=== PATIENT | male | born 1940 | race Caucasian/White ===

== ENCOUNTER → 2020-10-13 13:19 | Outpatient (BNVA) | payer MEDICARE, MEDICAID, SELFPAY | PROVIDERS: PCP Hospitalist; Visit Provider Internal Medicine | DX: I48.0 Paroxysmal atrial fibrillation (principal); I10 Essential (primary) hypertension | CPT/HCPCS: 99212 ==

== ENCOUNTER 2020-12-30 14:07 | Inpatient (IN) | payer MEDICARE, MEDICAID, SELFPAY ==
[2020-12-30] VITALS (9 sets, daily range): BP systolic 127–153; BP diastolic 49–69; PULSE 65–88; RESP 16–24; TEMP 36.6–36.9; O2SAT 94–99; BMI 31.6
--- NOTE | ~2020-12-30 | CT_ITS ---
EXAMINATION: CT ABDOMEN AND PELVIS WITHOUT CONTRAST CLINICAL INFORMATION: Anemia COMPARISON: Chest, abdomen, and pelvis noncontrast 08/30/2018. TECHNIQUE: Multidetector volumetric imaging was performed from the superior aspect of the liver through the pubic symphysis. Sagittal and coronal reformatted images were obtained on the technologist's workstation. No oral or intravenous contrast. This CT examination was performed using dose optimization techniques as appropriate, variously including the following: *Automated exposure control *Adjustment of mA and/or kV according to patient size (this includes techniques or standardized protocols for targeted exams where dose is matched to indication/reason for exam; i.e. extremities or head) *Use of iterative reconstruction technique DLP: 681 mGy-cm FINDINGS: LUNG BASES: Dependent atelectasis posterior bases. Stable subpleural nodule right posterior medial base 6 x 5 mm, similar to CT 2018. LIVER, GALLBLADDER, AND BILIARY TREE: Liver is smooth in contour and homogeneous. Liver is within normal size measuring 18 cm in length. No focal parenchymal lesion or intrahepatic ductal dilatation. There are small stones again seen in the gallbladder. No gallbladder dilatation or pericholecystic inflammatory changes. Common duct unremarkable. PANCREAS: Unremarkable. SPLEEN: Unremarkable. 10.4 cm in length. ADRENAL GLANDS: Unremarkable. KIDNEYS AND URETERS: The kidneys are normal in size and show no hydronephrosis, hydroureter, or perinephric stranding. Again, there is a cyst upper pole left kidney water attenuation, 2.7 cm. Again, there are cysts water attenuation right kidney upper pole, lateral 2 x 3 cm and medial 2.3 x 1.9 cm. There are some bilateral renal vascular calcifications. No visible urinary tract calculi. BLADDER/PROSTATE: Mild bladder wall thickening with trabeculation. Huggins catheter tip at junction lateral and upper prostate. Balloon at level of prostatic urethra. Prostatic enlargement. GASTROINTESTINAL TRACT: There is no bowel obstruction or inflammatory changes in the bowel or mesentery. Appendix not seen with certainty. No inflammatory changes around the terminal ileum or cecum. No ascites or fluid collection. ABDOMINAL WALL: Small fat-containing left inguinal hernia. LYMPH NODES: No lymphadenopathy. VASCULAR: Unremarkable. PELVIC VISCERA: No additional findings. See bladder section above OSSEOUS STRUCTURES: No acute bony abnormality. Degenerative changes lumbar spine. Old superior endplate depressions T12 and L2. Results called to Dr. N. Ghias at [address]/CT abdomen pelvis wo con IMPRESSION: 1. Huggins catheter tip at level of upper prostate with Huggins balloon at level mid prostate. Upper tracts unremarkable. No hydronephrosis. 2. Cholelithiasis. No biliary ductal dilatation. 3. Liver and spleen unremarkable on noncontrast exam. No adenopathy or ascites.
--- NOTE | 2020-12-30 15:01 | ED.GENADULT ---
HPI - General Adult General Chief complaint: Weakness Stated complaint: abnormal labs, low h&h Time Seen by Provider: 12/30/20 14:28 Source: patient Mode of arrival: ambulatory Limitations: no limitations History of Present Illness HPI narrative: Patient sent to the ED for low H&H. As per EMS notes patient has been weak. Patient himself denies any complaints and does not know why he was sent to the ER. Related Data Home Medications Medication Instructions Recorded Confirmed amlodipine 2.5 mg tablet 2.5 mg PO DAILY 10/13/20 10/13/20 apixaban 2.5 mg tablet 2.5 mg PO BID 10/13/20 10/13/20 aripiprazole 2 mg tablet 2 mg PO DAILY tab 10/13/20 10/13/20 atenolol 50 mg tablet 50 mg PO BID tab 10/13/20 10/13/20 carbamazepine 300 mg 600 mg PO BID cap 10/13/20 10/13/20 capsule,extended release [id number] dulaglutide 1.5 mg/0.5 mL mg SUBCUT 10/13/20 10/13/20 subcutaneous pen injector fenofibrate nanocrystallized 145 145 mg PO DAILY 10/13/20 10/13/20 mg tablet insulin glargine 100 unit/mL (3 unit SUBCUT 10/13/20 10/13/20 mL) subcutaneous pen levothyroxine 50 mcg tablet 50 mcg PO DAILY 10/13/20 10/13/20 lithium carbonate 450 mg mg PO 10/13/20 10/13/20 tablet,extended release metformin 1,000 mg tablet 1,000 mg PO BID 10/13/20 10/13/20 risperidone 0.25 mg tablet 0.25 mg PO BEDTIME tab 10/13/20 10/13/20 simvastatin 10 mg tablet mg PO 10/13/20 10/13/20 terazosin 2 mg capsule 2 mg PO BEDTIME 10/13/20 10/13/20 Allergies Allergy/AdvReac Type Severity Reaction Status Date / Time No Known Allergies Allergy Verified 10/13/20 13:44 [No Known Allergies*] Review of Systems Review of Systems: Yes all other systems are reviewed and are negative Constitutional: Constitutional: Reports as per HPI and Reports no additional constitutional complaints Eyes: Eyes: Reports as per HPI and Reports no additional eye complaints ENT: Reports system reviewed and no additional complaints, except as documented and Reports as per HPI Cardiovascular: Cardiovascular: Reports as per HPI and Reports no additional cardiovascular complaints Respiratory: Respiratory: Reports as per HPI and Reports no additional respiratory complaints Gastrointestinal: Gastrointestinal: Reports as per HPI and Reports no additional gastrointestinal complaints Genitourinary: Genitourinary: Reports no additional male genitourinary complaints and Reports as per HPI Musculoskeletal: Musculoskeletal: Reports no additional musculoskeletal complaints and Reports as per HPI Neurologic: Reports system reviewed and no additional complaints, except as documented and Reports as per HPI Psychiatric: Psychiatric: Reports no additional psychiatric complaints and Reports as per HPI [facility] Past Medical History Medical History (Updated 12/30/20 @ 20:14 by SERENA Alarcon) Essential hypertension PAF (paroxysmal atrial fibrillation) Surgical History (Updated 10/13/20 @ 13:45 by BHARATH Ramesh) History of permanent cardiac pacemaker placement (~03/2015) Family History Family History (Updated 10/13/20 @ 13:45 by BHARATH Ramesh) Father No problems noted. Mother No problems noted. Social History Social History (Updated 10/13/20 @ 13:45 by BHARATH Ramesh) Smoking Status: Former smoker Advance Directives: No Advance Directives Information Provided: No Physical Exam Vital Signs: Vital Signs: Last Vital Signs Pulse 66 12/30/20 19:26 Resp 22 H 12/30/20 20:02 BP 142/57 H 12/30/20 14:36 Pulse Ox 95 12/30/20 20:02 Body Mass Index 31.6 Const: General: cooperative, healthy appearing, comfortable, no acute distress, well developed, alert, awake and Physically active Orientation/consciousness: patient oriented x3 HENMT: Head: Yes normal to inspection, Yes No palpable skull fracture present, Yes normocephalic and Yes atraumatic Eyes: General: appearance normal, both eyes and all related structures Neck: Neck: Yes normal visual inspection, Yes full ROM, Yes no lymphadenopathy, Yes no meningeal signs, Yes trachea midline, Yes supple and No tender Chest: Chest palpation & inspection: normal inspection of the chest and normal palpation of entire chest wall Resp: Effort & Inspection: normal respiratory effort and able to speak in complete sentences Auscultation: clear to auscultation bilaterally Cardio: Jugular venous distension: no JVD Heart sounds: S1 normal heart sound present and S2 normal heart sound present GI: Other: Rectal exam positive for brown stool. Negative for mac blood or black stool. Inspection: Yes normal to inspection and No abdominal wall ecchymosis Palpation (GI): Soft to palpation, not firm, nontender, no guarding and not rigid : General: Yes CVA tenderness and Yes no CVA tenderness Back/Spine/Pelvis: Back: no CVA tenderness, CVA tenderness and No back tenderness Skin: General skin exam: no rashes or lesions noted and elasticity normal Neuro: General: patient oriented x3, no meningeal signs and CN's II-XI intact bilaterally Cranial nerves: Yes CN's II-XII intact bilaterally Extrem: General: Yes normal to inspection and Yes full ROM Psych: Appearance: grossly normal, well kempt and not disheveled Course Course Course Narrative: Will do repeat labs including H& H. Will EKG and troponin. Stool guaiac sent. Patient started on fluids. Reevaluation(s) Reevaluation #1: Lab results show he is anemic. Went to re-evaluate patient and patient is alert oriented x3 and vital signs are stable. Patient does not make decision for himself. Patient has a guardian Rebel Boone who I contacted twice. I called the cellphone and office number and there was no response. Spoke with supervising attending Dr. Bah who agreed that him and I will do provider sign consent for patient to receive blood. Patient to be admitted with a positive stool strike and on Eliquis. Reevaluation #2: Spoke with Dr. Clark of Gastroenterology and she was informed of patient's history, physical exam, and diagnostics. She recommends patient continue receiving red blood cell and Protonix. She states she will evaluate patient in the morning for possible endoscopy. Medical Decision Making MDM Narrative Medical decision making narrative: Rule out GI bleed Lab Data Result diagrams: 12/30/20 16:39 12/30/20 16:40 Labs: Lab Results 12/30/20 12/30/20 12/30/20 Range/Units 16:39 16:39 16:39 WBC 6.5 (4.8-10.8) X10*3/uL RBC 2.81 L (4.60-5.80) X10*6/uL Hgb 6.1 L* (14.0-18.0) g/dl Hct 22.0 L (42-52) % MCV 78.3 L (80-98) fL MCH 21.7 L (27.0-33.0) pg MCHC 27.7 L (31.0-36.0) g/dl RDW 16.9 H (11.0-16.0) % Plt Count 248 (160-400) X10*3/uL MPV 8.6 L (9.4-12.4) fL Immature Gran % (Auto) 0.5 H (0.0-0.4) % Neut % (Auto) 63.0 (45-73) % Lymph % (Auto) 24.2 (20-40) % [place] % (Auto) 6.4 (2-11) % Eos % (Auto) 5.6 H (0-4) % Baso % (Auto) 0.3 (0-2) % Lymph # (Auto) 1.6 (1.2-4.9) X10*3/uL [place] # (Auto) 0.4 (0.1-1.2) X10*3/uL Eos # (Auto) 0.4 (0.0-0.4) X10*3/uL Baso # (Auto) 0.0 (0.0-0.2) X10*3/uL Abs Immat Gran (auto) 0.03 (0.00-0.03) X10*3/uL Absolute Neuts (auto) 4.1 (2.0-8.3) X10*3/uL Absolute Nucleated RBC 0.000 (0.0-0.012) X10*3/uL Nucleated RBC % (auto) 0.0 (0.0-0.2) /100WBC PT 14.1 H (10.8-13.0) SEC INR 1.2 H (0.9-1.1) APTT 37.3 (24.1-38.0) SEC Sodium (135-145) mmol/L Potassium (3.3-5.1) mmol/L Chloride (96-108) mmol/L Carbon Dioxide (22-29) mmol/L Anion Gap (12-20) BUN (9-16) mg/dL Creatinine (0.5-1.4) mg/dL Estim Creat Clear Calc Estimated GFR Random Glucose (60-115) mg/dL Calcium (8.4-10.2) mg/dL Total Bilirubin (0.0-1.0) mg/dL AST (5-37) U/L ALT (0-40) U/L Alkaline Phosphatase (39-117) U/L Troponin I High Sens 7.8 (<3.5-35.0) ng/L Total Protein (6.5-8.0) g/dL Albumin (3.5-5.0) g/dL Stool Occult Blood (NEGATIVE) Blood Type Antibody Screen Crossmatch 12/30/20 12/30/20 12/30/20 Range/Units 16:39 16:39 16:40 WBC (4.8-10.8) X10*3/uL RBC (4.60-5.80) X10*6/uL Hgb (14.0-18.0) g/dl Hct (42-52) % MCV (80-98) fL MCH (27.0-33.0) pg MCHC (31.0-36.0) g/dl RDW (11.0-16.0) % Plt Count (160-400) X10*3/uL MPV (9.4-12.4) fL Immature Gran % (Auto) (0.0-0.4) % Neut % (Auto) (45-73) % Lymph % (Auto) (20-40) % [place] % (Auto) (2-11) % Eos % (Auto) (0-4) % Baso % (Auto) (0-2) % Lymph # (Auto) (1.2-4.9) X10*3/uL [place] # (Auto) (0.1-1.2) X10*3/uL Eos # (Auto) (0.0-0.4) X10*3/uL Baso # (Auto) (0.0-0.2) X10*3/uL Abs Immat Gran (auto) (0.00-0.03) X10*3/uL Absolute Neuts (auto) (2.0-8.3) X10*3/uL Absolute Nucleated RBC (0.0-0.012) X10*3/uL Nucleated RBC % (auto) (0.0-0.2) /100WBC PT (10.8-13.0) SEC INR (0.9-1.1) APTT (24.1-38.0) SEC Sodium 141 (135-145) mmol/L Potassium 4.6 (3.3-5.1) mmol/L Chloride 114 H (96-108) mmol/L Carbon Dioxide 20 L (22-29) mmol/L Anion Gap 12 (12-20) BUN 24 H (9-16) mg/dL Creatinine 1.39 (0.5-1.4) mg/dL Estim Creat Clear Calc 49.4 Estimated GFR 49 Random Glucose 102 (60-115) mg/dL Calcium 8.6 (8.4-10.2) mg/dL Total Bilirubin 0.2 (0.0-1.0) mg/dL AST 12 (5-37) U/L ALT 11 (0-40) U/L Alkaline Phosphatase 35 L (39-117) U/L Troponin I High Sens (<3.5-35.0) ng/L Total Protein 6.0 L (6.5-8.0) g/dL Albumin 3.6 (3.5-5.0) g/dL Stool Occult Blood POSITIVE (NEGATIVE) Blood Type A Positive Antibody Screen NEGATIVE Crossmatch See Detail ECG Data Interpretation: Atrial paced rhythm with prolonged AV conduction. 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 Ventricular rate 71. IL interval 214. QRS 154. QTC 497. Negative STEMI Critical Care Time Critical Care Time Critical Care Time: Yes Total Critical Care Time: 60 Attestation: Patient is severely anemic. Consent was signed and red packed blood cell was given. Rating Clerk was called. Patient given Protonix. Discharge Plan Discharge Clinical Impression: Acute GI bleeding Patient Disposition: Admitted As Inpatient
--- NOTE | 2020-12-30 15:02 | ECG_ITS ---
Test Reason : WEAKNESS Blood Pressure : / mmHG Vent. Rate : 071 BPM Atrial Rate : 071 BPM P-R Int : 214 ms QRS Dur : 154 ms QT Int : 458 ms P-R-T Axes : 000 -69 061 degrees QTc Int : 497 ms Atrial-paced rhythm with prolonged AV conduction Right bundle branch block Left anterior fascicular block Bifascicular block Septal infarct , age undetermined Abnormal ECG When compared with ECG of 31-AUG-2018 17:51, Septal infarct is now Present Nonspecific T wave abnormality no longer evident in Inferior leads Referred By: Abdiaziz Alberto Electronically Signed By:MACIEJ HERZOG MD
[2020-12-30] MEDS: 0.9 % Sodium Chloride 1,000 ML 999 ML IV (16:40)
[2020-12-30 16:46] LABS: MANUAL DIFF FLAG NO
[2020-12-30 16:48] LABS: Basophils Percent Auto 0.3 % (0-2); Eosinophils Absolute Auto 0.4 X10*3/uL (0.0-0.4); Eosinophils Percent Auto 5.6 % (0-4); Imm Gran Abs Auto 0.03 X10*3/uL (0.00-0.03); Imm Gran Pct Auto 0.5 % (0.0-0.4); Lymphocytes Absolute Auto 1.6 X10*3/uL (1.2-4.9); Lymphocytes Percent Auto 24.2 % (20-40); Mean Corpuscular HGB Conc 27.7 g/dl (31.0-36.0); Mean Corpuscular Hemoglobin 21.7 pg (27.0-33.0); Mean Corpuscular Volume 78.3 fL (80-98); Mean Platelet Volume 8.6 fL (9.4-12.4); Monocytes Absolute Auto 0.4 X10*3/uL (0.1-1.2); Monocytes Percent Auto 6.4 % (2-11); Neutrophils Absolute Auto 4.1 X10*3/uL (2.0-8.3); Platelet Count 248 X10*3/uL (160-400); Red Blood Count 2.81 X10*6/uL (4.60-5.80); Red Cell Distribution Width 16.9 % (11.0-16.0); White Blood Count 6.5 X10*3/uL (4.8-10.8)
[2020-12-30 16:50] LABS: OBS Int Ctl Valid YES; OBS1 POSITIVE (NEGATIVE)
[2020-12-30 16:54] LABS: INTERNATIONAL NORM RATIO 1.2 (0.9-1.1); Prothrombin Time 14.1 SEC (10.8-13.0)
[2020-12-30 16:56] LABS: Partial Thromboplastin Time 37.3 SEC (24.1-38.0)
[2020-12-30 17:01] LABS: Hemoglobin 6.1 g/dl (14.0-18.0)
[2020-12-30 17:13] LABS: Alanine Aminotransferase 11 U/L (0-40); Albumin Level 3.6 g/dL (3.5-5.0); Alkaline Phosphatase 35 U/L (39-117); Anion Gap 12 (12-20); Aspartate Amino Transferase 12 U/L (5-37); Bilirubin Total 0.2 mg/dL (0.0-1.0); Blood Urea Nitrogen 24 mg/dL (9-16); Calcium 8.6 mg/dL (8.4-10.2); Carbon Dioxide 20 mmol/L (22-29); Chloride 114 mmol/L (96-108); Creatinine Clr Calc Pharmacy 49.4; Estimated Glomerular Filt Rate 49; Glucose Random 102 mg/dL (60-115); Potassium 4.6 mmol/L (3.3-5.1); Sodium 141 mmol/L (135-145)
[2020-12-30 17:19] LABS: Troponin-I High Sensitivity 7.8 ng/L (<3.5-35.0)
--- NOTE | 2020-12-30 19:09 | PC.NURSE ---
Report taken from Miguelito, plan for labs, transfusion and admission.
[2020-12-30] MEDS: LORazepam 2 MG/ML VIAL IVPUSH (19:17)
[2020-12-30] MEDS: Pantoprazole Sodium 40 MG/10 ML VIAL 80 MG IVPUSH (19:17)
--- NOTE | 2020-12-30 19:27 | PC.NURSE ---
Pt resting in bed, medicated per NOV. Labs obtained. VSS. Continue to monitor.
--- NOTE | 2020-12-30 19:51 | PC.NURSE ---
Pt incontinent of urine, provided with john paul care and a complete bed change. Pt resting in bed at this time.
--- NOTE | 2020-12-30 20:39 | P.HPHOSP_ITS ---
History of Present Illness Date of Service: 12/30/20 Chief Complaint: Anemia 80-year-old male past medical history of hypertension, hyperlipidemia, diabetes, chronic kidney disease, AFib on Eliquis, hypothyroidism, GERD, history of pacemaker bipolar, dementia, psychiatric disease,Has a guardian presented from the residential chief complaint of abnormal labs-noted to have anemia of 6.2 hemoglobin; Patient is a poor historian. I tried to reach the residential not able to chronic as [facility] I spoke to the patient's guardian Rebel Sol- [phone]. Most of the history obtained from the records and the ER staff. Reportedly patient did not have any chest pain palpitations lightheadedness or dizziness. Denies any active signs of bleeding. For ER team patient rectal exam showed brown stool with guaiac positive. Lab showed hemoglobin of 6.1. Patient's prior hemoglobin was 9.2 in 2 in 18. Patient's current mental status is at his baseline. Patient denies any fever chills cough. Denies any abdominal discomfort. Review of all other systems is negative except mentioned above [facility] Medical History (Updated 01/01/21 @ 15:07 by Suleiman Felton MD) Diabetes Essential hypertension Hypothyroidism PAF (paroxysmal atrial fibrillation) Psychiatric diagnosis Wheezy Family History Father No problems noted. Mother No problems noted. Surgical History History of permanent cardiac pacemaker placement (~03/2015) Social History Household Members: Other Housing: Retirement Do you presently have visiting nurse or other home services: No Unable to assess alcohol history related to: Refusing to respond Smoking Status: Unknown if ever smoked Use of substances other than those prescribed or required for medical reasons: Unknown Currently Displaying Signs/Symptoms of Drug Intoxication Withdrawal: No Advance Directives: No Advance Directives Information Provided: No Do you have thoughts of harming others: None Do you have a plan to hurt others: No Plan Recently lost weight without trying: Unsure service: Yes Current occupational status: disabled Meds Allergies Allergy/AdvReac Type Severity Reaction Status Date / Time No Known Allergies Allergy Verified 10/13/20 13:44 [No Known Allergies*] Active Medications: Current Medications Generic Name Dose Route Start Last Admin Trade Name Yoselin PRN Reason Stop Dose Admin Acetaminophen 650 mg 12/30/20 20:18 Acetaminophen 325 Mg Tablet PO Q6H PRN Pain, Mild (Pain Scale 1-3) Dextrose/Sodium Chloride 1,000 mls @ 50 mls/hr 12/30/20 20:30 D51/2ns IVCONT .Q20H FOR[facility]LY [facility], [facility]–1983 Insulin Human Lispro 0 unit 12/30/20 21:00 Insulin Lispro 100 Unit/Ml 3 Ml Vial SUBCUT QIDACHS FOR[facility]LY [facility], [facility]1983 Protocol Sodium Chloride 3 ml 12/31/20 00:00 0.9 % Sodium Chloride Flush 3 Ml [facility] Medications Medication Instructions Recorded Confirmed Last Taken Type amlodipine 2.5 mg tablet 2.5 mg PO DAILY 10/13/20 12/31/20 12/30/20 09:00 History apixaban 2.5 mg tablet 2.5 mg PO BID 10/13/20 12/31/20 12/30/20 09:00 History aripiprazole 2 mg tablet 1 mg PO DAILY tab 10/13/20 12/31/20 12/30/20 09:00 History atenolol 50 mg tablet 50 mg PO BID tab 10/13/20 12/31/20 12/30/20 09:00 History carbamazepine 300 mg 600 mg PO BID cap 10/13/20 12/31/20 12/30/20 09:00 History capsule,extended release [id number] dulaglutide 1.5 mg/0.5 mL 1.5 mg SUBCUT SA 10/13/20 12/31/20 12/27/20 History subcutaneous pen injector fenofibrate nanocrystallized 145 145 mg PO DAILY 10/13/20 12/31/20 12/30/20 09:00 History mg tablet insulin glargine 100 unit/mL (3 10 unit SUBCUT DAILY@1100 10/13/20 12/31/20 12/30/20 11:00 History mL) subcutaneous pen levothyroxine 50 mcg tablet 50 mcg PO DAILY@0630 10/13/20 12/31/20 12/30/20 09:00 History lithium carbonate 450 mg 450 mg PO BEDTIME 10/13/20 12/31/20 12/30/20 17:00 History tablet,extended release metformin 1,000 mg tablet 1,000 mg PO BID 10/13/20 12/31/20 12/30/20 09:00 History risperidone 0.25 mg tablet 0.125 mg PO BEDTIME tab 10/13/20 12/31/20 12/30/20 09:00 History simvastatin 10 mg tablet 10 mg PO BEDTIME 10/13/20 12/31/20 12/30/20 17:00 History terazosin 2 mg capsule 2 mg PO BEDTIME 10/13/20 12/31/20 12/30/20 17:00 History multivitamin 1 tab PO DAILY 12/31/20 12/31/20 12/30/20 09:00 History polyvinyl alcohol [Artificial 1 drp OPHTHALMIC (EYE) BID 12/31/20 12/31/20 09:00 History Tears (polyvin alc)] Physical Exam Vital Signs and Narrative: Vital Signs: Last Vital Signs Pulse 66 12/30/20 19:26 Resp 22 H 12/30/20 20:02 BP 142/57 H 12/30/20 14:36 Pulse Ox 95 12/30/20 20:02 Body Mass Index 31.6 Gen: Appears be in no acute distress HEENT: NCAT, Moist mucosa. Pulmonary: Vesicular breath sounds, fair air entry CVS: Normal S1-S2 Abdomen: BS+, Soft, Nontender Extremities: Warm well perfused Neuro: Alert and awake. Results Labs CBC and Chem 7: 01/01/21 06:15 01/01/21 06:15 Labs: Laboratory Results - last 24 hr 12/30/20 12/30/20 12/30/20 16:39 16:39 16:39 MCV 78.3 L MCH 21.7 L MCHC 27.7 L RDW 16.9 H Plt Count 248 MPV 8.6 L Immature Gran % (Auto) 0.5 H Neut % (Auto) 63.0 Lymph % (Auto) 24.2 [place] % (Auto) 6.4 Eos % (Auto) 5.6 H Baso % (Auto) 0.3 Lymph # (Auto) 1.6 [place] # (Auto) 0.4 Eos # (Auto) 0.4 Baso # (Auto) 0.0 Abs Immat Gran (auto) 0.03 Absolute Neuts (auto) 4.1 Absolute Nucleated RBC 0.000 Nucleated RBC % (auto) 0.0 PT 14.1 H INR 1.2 H APTT 37.3 Anion Gap Estim Creat Clear Calc Estimated GFR Random Glucose Calcium Total Bilirubin AST ALT Alkaline Phosphatase Troponin I High Sens 7.8 Total Protein Albumin Stool Occult Blood Blood Type Antibody Screen Crossmatch 12/30/20 12/30/20 12/30/20 16:39 16:39 16:40 MCV MCH MCHC RDW Plt Count MPV Immature Gran % (Auto) Neut % (Auto) Lymph % (Auto) [place] % (Auto) Eos % (Auto) Baso % (Auto) Lymph # (Auto) [place] # (Auto) Eos # (Auto) Baso # (Auto) Abs Immat Gran (auto) Absolute Neuts (auto) Absolute Nucleated RBC Nucleated RBC % (auto) PT INR APTT Anion Gap 12 Estim Creat Clear Calc 49.4 Estimated GFR 49 Random Glucose 102 Calcium 8.6 Total Bilirubin 0.2 AST 12 ALT 11 Alkaline Phosphatase 35 L Troponin I High Sens Total Protein 6.0 L Albumin 3.6 Stool Occult Blood POSITIVE Blood Type A Positive Antibody Screen NEGATIVE Crossmatch See Detail Assessment and Plan (1) Acute GI bleeding: Status: Acute 80-year-old male with a past medical history of hypertension, hyperlipidemia, diabetes, chronic kidney disease, atrial fibrillation on Eliquis, history of pacemaker, dementia, psychiatric disease, presented from the residential with chief complaint of anemia. Anemia: Likely in the setting of GI bleed. Guaiac-positive stool. IV ppi b.i.d. Patient being transfused 2 units of PRBC in the ER. Will follow-up blood post transfusion. Gastroenterology was notified NPO IV fluids History of AFib: Patient on Eliquis. Currently rate controlled. Hold Eliquis given GI bleed. A tried to reach the residential to find out the last dose of Eliquis but was going to the [facility] male. Will monitor serial H&H. Hypertension: Will hold home antihypertensives in order to provide room her blood pressure given GI bleed. Monitor vitals. Diabetes: Insulin sliding scale. Hold home oral hypoglycemic agents. Monitor fingerstick glucose. Dementia/psychiatric illness: Continue home medications. Patient's mental status is currently at baseline. Diet: NPO. Speech and swallow eval. DVT prophylaxis: SCD boots Code status: Full code. The documents from the residential states full code. I also spoke to the patient's guardian.
--- NOTE | 2020-12-30 21:15 | PC.NURSE ---
Pt noted to be altered and combative after Ativan. POC 109 mg/dl. Blood transfusion infusing. VSS. Pt moved to room 22, closer to nurses station to be monitor. Continue to monitor.
[2020-12-30 21:17] LABS: Glucose, Whole Blood 109 mg/dL (60-115)
--- NOTE | 2020-12-30 22:30 | PC.NURSE ---
hot cell technician to lab to bead picker RBCs however there was an issue with the patient label and the lab would not issue the RBCs to the tech.
--- NOTE | 2020-12-30 22:43 | PC.NURSE ---
Pt incontinent of urine and a large brown, formed stool. Pt provided with john paul care and a complete bed change. Plan for second unit of blood transfusion.
--- NOTE | 2020-12-30 23:52 | PC.NURSE ---
photo lab technician at bedside to obtain Covid swab.
[2020-12-31] VITALS (8 sets, daily range): BP systolic 100–173; BP diastolic 56–89; PULSE 67–100; RESP 19–26; TEMP 36.1–36.8; O2SAT 90–98
[2020-12-31 00:20] LABS: COVID-19 Test Negative (Negative); IDNOW Serial# 9DD0AD1C
[2020-12-31] MEDS: 0.9 % Sodium Chloride Flush 3 ML SYRINGE IVFLUSH (01:20)
[2020-12-31] MEDS: Dextrose 5 % and 0.45 % NaCl 1,000 ML 50 ML IVCONT ×2 (01:52→16:40)
--- NOTE | 2020-12-31 02:32 | PC.NURSE ---
16F argueta placed, UA obtained and sent.
[2020-12-31 02:42] LABS: Glucose Urine UA NEG (NEG); Leukocyte Esterase Urine 3+ (NEG); Nitrite Urine NEG (NEG); PH 6.5 (5.0-8.0); Specific Gravity - Urine <= 1.005 (1.005-1.025); UACC Culture Trigger YES; Urine Blood 3+ (NEG); Urine Ketones NEG (NEG); Urine Protein NEG (NEG-TRACE)
[2020-12-31 02:43] LABS: Appearance Urine HAZY; Color Urine STRAW
[2020-12-31 02:49] LABS: RBC Urine 50-75 /HPF (0)
[2020-12-31 02:50] LABS: Bacteria Urine 2+ /LPF; WBC Clumps Urine NOTED
--- NOTE | 2020-12-31 04:36 | PC.NURSE ---
Pt provided with john paul care and a complete bed change. Pt resting in bed in NAD.
[2020-12-31] MEDS: Pantoprazole Sodium 40 MG/10 ML VIAL IVPUSH ×2 (05:58→16:40)
--- NOTE | 2020-12-31 06:03 | PC.NURSE ---
750 ml of red tinged urine emptied from argueta bag. -bleeding noted at insertion site however pt continuously pulling on argueta. Argueta secure repositioned twice. Pt medicated per MAR, VSS, pt continues to remove telemetry leads. Pt resting comfortably in bed in NAD. Continue to monitor.
[2020-12-31 07:16] LABS: MANUAL DIFF FLAG NO
[2020-12-31 07:24] LABS: Basophils Absolute Auto 0.1 X10*3/uL (0.0-0.2); Basophils Percent Auto 0.5 % (0-2); Eosinophils Absolute Auto 0.4 X10*3/uL (0.0-0.4); Eosinophils Percent Auto 3.9 % (0-4); Hematocrit 28.1 % (42-52); Hemoglobin 8.1 g/dl (14.0-18.0); Imm Gran Abs Auto 0.06 X10*3/uL (0.00-0.03); Imm Gran Pct Auto 0.7 % (0.0-0.4); Lymphocytes Absolute Auto 1.5 X10*3/uL (1.2-4.9); Lymphocytes Percent Auto 16.7 % (20-40); Mean Corpuscular HGB Conc 28.8 g/dl (31.0-36.0); Mean Corpuscular Hemoglobin 22.9 pg (27.0-33.0); Mean Corpuscular Volume 79.4 fL (80-98); Mean Platelet Volume 9.2 fL (9.4-12.4); Monocytes Absolute Auto 0.6 X10*3/uL (0.1-1.2); Neutrophils Absolute Auto 6.5 X10*3/uL (2.0-8.3); Neutrophils Percent Auto 71.2 % (45-73); Platelet Count 279 X10*3/uL (160-400); Red Blood Count 3.54 X10*6/uL (4.60-5.80); Red Cell Distribution Width 16.2 % (11.0-16.0); White Blood Count 9.2 X10*3/uL (4.8-10.8)
[2020-12-31 07:49] LABS: Anion Gap 11 (12-20); Blood Urea Nitrogen 19 mg/dL (9-16); Calcium 8.4 mg/dL (8.4-10.2); Carbon Dioxide 18 mmol/L (22-29); Chloride 119 mmol/L (96-108); Creatinine Clr Calc Pharmacy 54.5; Estimated Glomerular Filt Rate 55; Glucose Random 100 mg/dL (60-115); Potassium 4.6 mmol/L (3.3-5.1); Sodium 143 mmol/L (135-145)
[2020-12-31 08:12] LABS: Glucose, Whole Blood 99 mg/dL (60-115)
[2020-12-31 08:14] LABS: HBc Num1 0.11 S/CO (0.00-0.79); HIV AB/AG Nonreactive (Nonreactive); HIV Num 1 0.07 S/CO (0.00-0.99); Hepatitis B Core Antibody Nonreactive (Nonreactive); ~Hepatitis B Surface Antibody NONREACTIVE (Nonreactive)
[2020-12-31 08:35] LABS: HBsAGNum1 0.19 S/CO (0.00-0.99); Hepatitis B Surface Antigen Negative (Negative); ~HepC Num1 0.06 S/CO (0.00-0.79); ~Hepatitis C Antibody Nonreactive (Nonreactive)
--- NOTE | 2020-12-31 08:46 | P.CNGI_ITS ---
History of Present Illness Data of Consult Service Date: 12/31/20 Requesting physician: Argelia Guzman Primary Care Provider: Sterling Be DO HPI Reason for consult: anemia 80-year-old male past medical history of hypertension, hyperlipidemia, diabetes, chronic kidney disease, AFib on Eliquis, hypothyroidism, GERD, history of pacemaker bipolar, dementia, psychiatric disease, who I am seeing for assessment of anemia. No hx from patient, has severe dementia. Per notes he had labs checked at [facility] and Hgb was around 6 g/dl, confirmed on another sample in the ED here. Apparently no signs of active blood loss, and rectal exam in ED with brown stool that was FOB pos. I spoke to RN and she had no further observations to make. He did received 2 units of blood and hbg appropriately incremented. Review of Systems Review of Systems: Yes Unobtainable due to mental status PMFSH Past Medical History Medical History (Updated 12/30/20 @ 20:14 by SERENA Alarcon) Essential hypertension PAF (paroxysmal atrial fibrillation) Family History Family History (Updated 10/13/20 @ 13:45 by BHARATH Ramesh) Father No problems noted. Mother No problems noted. Surgical History Surgical History (Updated 10/13/20 @ 13:45 by BHARATH Ramesh) History of permanent cardiac pacemaker placement (~03/2015) Social History Social History (Updated 10/13/20 @ 13:45 by BHARATH Ramesh) Household Members: Other Housing: Long-Term Do you presently have visiting nurse or other home services: No Unable to assess alcohol history related to: Refusing to respond Smoking Status: Unknown if ever smoked Use of substances other than those prescribed or required for medical reasons: Refusing to respond Currently Displaying Signs/Symptoms of Drug Intoxication Withdrawal: No Advance Directives: No Advance Directives Information Provided: No Do you have thoughts of harming others: None Do you have a plan to hurt others: No Plan Recently lost weight without trying: Unsure service: Yes Current occupational status: disabled Meds Allergies Allergy/AdvReac Type Severity Reaction Status Date / Time No Known Allergies Allergy Verified 10/13/20 13:44 [No Known Allergies*] Active Medications: Current Medications Generic Name Dose Route Start Last Admin Trade Name Freq PRN Reason Stop Dose Admin Acetaminophen 650 mg 12/30/20 20:18 Acetaminophen 325 Mg Tablet PO Q6H PRN Pain, Mild (Pain Scale 1-3) Dextrose/Sodium Chloride 1,000 mls @ 50 mls/hr 12/30/20 20:30 12/31/20 01:52 D51/2ns IVCONT 50 mls/hr .Q20H [facility] Administration Insulin Human Lispro 0 unit 12/30/20 21:00 12/31/20 08:04 Insulin Lispro 100 Unit/Ml 3 Ml Vial SUBCUT Not Given QIDACHS [facility] Protocol Pantoprazole Sodium 40 mg 12/31/20 06:30 12/31/20 05:58 Pantoprazole Sodium 40 Mg/10 Ml Vial IVPUSH 40 mg BID@0630,1630 [facility] Administration Pharmacy Consult 1 each 12/31/20 06:47 Consult Rx Perform Med Rec MISCELLANE ONCE PRN Consult order Sodium Chloride 3 ml 12/31/20 00:00 12/31/20 08:05 0.9 % Sodium Chloride Flush 3 Ml Syringe IVFLUSH Not Given QSHIFT [facility] Home Medications Medication Instructions Recorded Confirmed Last Taken Type amlodipine 2.5 mg tablet 2.5 mg PO DAILY 10/13/20 12/31/20 12/30/20 09:00 History apixaban 2.5 mg tablet 2.5 mg PO BID 10/13/20 12/31/20 12/30/20 09:00 History aripiprazole 2 mg tablet 1 mg PO DAILY tab 10/13/20 12/31/20 12/30/20 09:00 History atenolol 50 mg tablet 50 mg PO BID tab 10/13/20 12/31/20 12/30/20 09:00 History carbamazepine 300 mg 600 mg PO BID cap 10/13/20 12/31/20 12/30/20 09:00 History capsule,extended release [id number] dulaglutide 1.5 mg/0.5 mL 1.5 mg SUBCUT SA 10/13/20 12/31/20 12/27/20 History subcutaneous pen injector fenofibrate nanocrystallized 145 145 mg PO DAILY 10/13/20 12/31/20 12/30/20 09:00 History mg tablet insulin glargine 100 unit/mL (3 10 unit SUBCUT DAILY@1100 10/13/20 12/31/20 12/30/20 11:00 History mL) subcutaneous pen levothyroxine 50 mcg tablet 50 mcg PO DAILY@0630 10/13/20 12/31/20 12/30/20 09:00 History lithium carbonate 450 mg 450 mg PO BEDTIME 10/13/20 12/31/20 12/30/20 17:00 History tablet,extended release metformin 1,000 mg tablet 1,000 mg PO BID 10/13/20 12/31/20 12/30/20 09:00 History risperidone 0.25 mg tablet 0.125 mg PO BEDTIME tab 10/13/20 12/31/20 12/30/20 09:00 History simvastatin 10 mg tablet 10 mg PO BEDTIME 10/13/20 12/31/20 12/30/20 17:00 History terazosin 2 mg capsule 2 mg PO BEDTIME 10/13/20 12/31/20 12/30/20 17:00 History multivitamin 1 tab PO DAILY 12/31/20 12/31/20 12/30/20 09:00 History polyvinyl alcohol [Artificial 1 drp OPHTHALMIC (EYE) BID 12/31/20 12/31/20 09:00 History Tears (polyvin alc)] Physical Exam Vital Signs: Vital Signs: Last Vital Signs Temp 98.2 F 12/31/20 08:00 Pulse 87 12/31/20 08:00 Resp 24 H 12/31/20 08:00 BP 116/73 12/31/20 08:00 Pulse Ox 98 12/31/20 08:00 Body Mass Index 31.6 Const: Other: Constitutional : Alert with stimulation, not interested in reply to my questions Neck : Normal inspection, Supple Cardiovascular : RRR, no lower extremity edema Respiratory : Good bilateral air entry, no crackles Gastrointestinal: soft, lax, Normal bowel sounds, Non tender Skin : Warm/Dry, No rash Neurological : Alert & seems disoriented, No focal deficit General: comforta ble, no acute distress and awake HENMT: Head: Yes normal to inspection, Yes No palpable skull fracture present, Yes normocephalic and Yes atraumatic Eyes: General: appearance normal, both eyes and all related structures Neck: Neck: Yes normal visual inspection, Yes full ROM, Yes no lymphadenopathy, Yes no meningeal signs, Yes trachea midline, Yes supple and No tender Chest: Chest palpation & inspection: normal inspection of the chest and normal palpation of entire chest wall Resp: Effort & Inspection: normal respiratory effort Auscultation: clear to auscultation bilaterally Cardio: Jugular venous distension: no JVD Heart sounds: S1 normal heart sound present and S2 normal heart sound present GI: Inspection: Yes normal to inspection and No abdominal wall ecchymosis Palpation (GI): Soft to palpation, not firm, nontender, no guarding and not rigid : General: Yes CVA tenderness and Yes no CVA tenderness Back/Spine/Pelvis: Back: no CVA tenderness, CVA tenderness and No back tenderness Skin: General skin exam: no rashes or lesions noted and elasticity normal Neuro: General: no meningeal signs and CN's II-XI intact bilaterally Cranial nerves: Yes CN's II-XII intact bilaterally Extrem: General: Yes normal to inspection Results Labs CBC & Chem 7: 12/31/20 06:29 12/31/20 06:29 Labs: Short CBC 12/30/20 12/31/20 Range/Units 16:39 06:29 WBC 6.5 9.2 (4.8-10.8) X10*3/uL Hgb 6.1 L* 8.1 L D (14.0-18.0) g/dl Hct 22.0 L 28.1 L D (42-52) % Plt Count 248 279 (160-400) X10*3/uL BMP 12/30/20 12/31/20 16:40 06:29 Sodium 141 143 Potassium 4.6 4.6 Chloride 114 H 119 H Carbon Dioxide 20 L 18 L BUN 24 H 19 H Creatinine 1.39 1.26 Calcium 8.6 8.4 Liver Function 12/30/20 Range/Units 16:40 Total Bilirubin 0.2 (0.0-1.0) mg/dL AST 12 (5-37) U/L ALT 11 (0-40) U/L Alkaline Phosphatase 35 L (39-117) U/L Albumin 3.6 (3.5-5.0) g/dL Urine 12/31/20 Range/Units 02:32 Urine Color STRAW Urine Appearance HAZY Urine pH 6.5 (5.0-8.0) Ur Specific [place] <= 1.005 (1.005-1.025) Urine Protein NEG (NEG-TRACE) MG/DL Urine Glucose (UA) NEG (NEG) MG/DL Assessment and Plan (1) Acute GI bleeding: Status: Acute 1/ Possible obscure occult GI bleeding whilst on NOAC, wide differential incl mucosal blood loss, AVM, neoplasia, ulcer, gastritis PLAN: 1/ can allow clears 2/ pantoprazole 40 mg IV BID 3/ I spoke to the patient's guardian Rebel Sweta- [phone] and he would prefer to find out what is going on albeit he admits if cancer was found he would not put him thru surgery or other treatment. Recommend placing NGT for bowel prep, can also give enemas, and will plan for EGD with colonoscopy or sigmoidoscopy (at least) for tomorrow.
--- NOTE | 2020-12-31 10:07 | MHC.CM.PN ---
IMM 12/31/20, EMR REVIEWED, PT ADMITTED W/ANEMIA, +OCCULT STOOL, AND WBC'S AND RBC'S IN URINE, PT RECEIVED 2 UNITS OF PRBC IN ED, CM ATTEMPTED TO MEET WITH PT WHO WS SLEEPING SOUNDLY, CM RECEIVED CALL FROM AT [facility] AT 9:58AM AND THEN SPOKE W/ROBERT PT'S SW, PER SW PT'S BASELINE IS 1 ASSIST W/TRANSFERS, USES A WC AND SELF PROPELS HIMSELF AROUND, EATS INDEPENDENTLY AND LOVES FOOD, DIET IS LOW CONCENTRATED SUGAR, INCONT OF BOWEL AND BLADDER. 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 PT WILL WAVE A FIST IN THE AIR HOWEVER IS EASY TO DISTRACT AND THEN FORGETS WHAT HE WAS DOING. DISCHARGE PLAN: RETURN TO [facility], [facility] FOR BLS TRANSPORT PCP: DR. HUFF
--- NOTE | 2020-12-31 10:44 | P.CDIC_ITS ---
CDI Concurrent Query Service Date: 12/31/20 Documentation Clarification: Please clarify if you are treating a proba ble/suspected/likely or confirmed: Acute Blood Loss Anemia due to GI Bleed Adverse effect of anticoagulant Hemorrhagic Disorder due to extrinsic circulating anti-coagulant Provider Response: Other Other Diagnosis: Acute Blood Loss Anemia due to GI Bleed PLEASE DO NOT DELETE/MODIFY EXISTING CONTENT Additional information is needed in order to code to the highest accuracy and appropriate Severity of Illness (SOI). Please clarify the information noted below in your progress notes and discharge summary. Risk Factors/Clinical Indicators/Treatments 80 year old male admitted with weakness, low H/H 6.1/22.0 Stool occult blood positive GI: recommend transfusion and Protonix Possible endoscopy Patient was on Elaquis CDS: Geneva Carolina RN Contact Number: [phone] Please Review the information above and exercise your independent professional judgment in responding to the query. If you concur, pleas document in the PROGRESS NOTES and DISCHARGE SUMMARY. If you do not agree with the query, pleas e document in the query above. THIS QUERY IS PART OF THE PERMANENT MEDICAL RECORD
--- NOTE | 2020-12-31 11:09 | P.PNIM_ITS ---
Subjective Subjective Date of Service: 12/31/20 Interval History: the patient was seen and evaluated this morning Laying in bed, very aggravated about being woken up Denies any fever, chills or pain Reported combative behavior overnight and trying to hit the nurses No reported other overnight events. Systemic review: No fever, chills No chest pain, palpitation No shortness of breath or coughing No abdominal pain, nausea or vomiting Not much interested in talking to me a Physical Exam Vital Signs: Vital Signs: Last Vital Signs Temp 98.2 F 12/31/20 08:00 Pulse 87 12/31/20 08:00 Resp 24 H 12/31/20 08:00 BP 116/73 12/31/20 08:00 Pulse Ox 98 12/31/20 08:00 Body Mass Index 31.6 Const: Other: Constitutional : Alert with stimulation, not interested in reply to my questions Neck : Normal inspection, Supple Cardiovascular : RRR, no lower extremity edema Respiratory : Good bilateral air entry, no crackles Gastrointestinal: soft, lax, Normal bowel sounds, Non tender Skin : Warm/Dry, No rash Neurological : Alert & seems disoriented, No focal deficit Objective Data Current Medications Generic Name Dose Route Start Last Admin Trade Name Freq PRN Reason Stop Dose Admin Acetaminophen 650 mg 12/30/20 20:18 Acetaminophen 325 Mg Tablet PO Q6H PRN Pain, Mild (Pain Scale 1-3) Dextrose/Sodium Chloride 1,000 mls @ 50 mls/hr 12/30/20 20:30 12/31/20 01:52 D51/2ns IVCONT 50 mls/hr .Q20H [facility] Administration Insulin Human Lispro 0 unit 12/30/20 21:00 12/31/20 08:04 Insulin Lispro 100 Unit/Ml 3 Ml Vial SUBCUT Not Given QIDACHS [facility] Protocol Pantoprazole Sodium 40 mg 12/31/20 06:30 12/31/20 05:58 Pantoprazole Sodium 40 Mg/10 Ml Vial IVPUSH 40 mg BID@0630,1630 [facility] Administration Pharmacy Consult 1 each 12/31/20 06:47 Consult Rx Perform Med Rec MISCELLANE ONCE PRN Consult order Sodium Chloride 3 ml 12/31/20 00:00 12/31/20 08:05 0.9 % Sodium Chloride Flush 3 Ml Syringe IVFLUSH Not Given QSHIFT [facility] Labs CBC & Chem 7: 04/28/21 06:29 12/31/20 06:29 Assessment and Plan (1) Acute GI bleeding: Status: Acute Assessment and Plan: 80-year-old male with a past medical history of hypertension, hyperlipidemia, diabetes, chronic kidney disease, atrial fibrillation on Eliquis, history of pacemaker, dementia, psychiatric disease, presented from the senior care with chief complaint of anemia. Acute on chronic blood-loss anemia Secondary to likely chronic GI bleed History of anticoagulation usage which likely contributing Hemoglobin improved to 8 after 2 units transfusion Guaiac-positive stool. Continue IV ppi b.i.d. Gastroenterology input appreciated, to discuss goals of care with healthcare proxy and decide the best next step if to do upper and lower endoscopy or just to discontinue anticoagulation and monitor Hold Eliquis for now and consider DC before discharge if no intervention planned Keep NPO for now, Advanced diet later Continue IV fluids Behavioral problem Patient combative and aggressive with with staff Try recurrent reorientation Avoid medications that might worsen his mentation, if needed very small dose of Haldol History of AFib Hold Eliquis given GI bleed Start atenolol home does Will monitor serial H&H. Hypertension Will hold home antihypertensives in order to provide room her blood pressure given GI bleed Monitor vitals. Diabetes Insulin sliding scale Hold home oral hypoglycemic agents Monitor fingerstick glucose. Dementia/psychiatric illness To Continue home medications Patient's mental status is currently at baseline. Question seizure disorder Start carbamazepine Diet NPO Speech and swallow eval. DVT prophylaxis: SCD boots the
--- NOTE | 2020-12-31 11:52 | MHC.SLORD ---
Speech Language Pathology Order Status: Order received for bedside swallow evaluation. Pt refused to participate. 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 Per documentation from Angelique in [place], pt is on unmodified diet at baseline. [employer] PRODUCT [employer]ER will re-attempt evaluation tomorrow morning.
--- NOTE | 2020-12-31 11:59 | PC.NURSE ---
Pt refused swallow eval by speech. Also refused lunch POC, vs and sequentials. Dr Guzman notified
[2020-12-31] MEDS: carBAMazepine ER 200 MG TAB.ER.12H 600 MG PO ×2 (12:54→20:56)
[2020-12-31 16:13] LABS: Glucose, Whole Blood 132 mg/dL (60-115)
--- NOTE | 2020-12-31 17:18 | PC.NURSE ---
Pt allowed staff to reposition in bed before dinner. Also allowed staff to put a satnam top on him. Huggins remains draining clear yellow urine. Pt feeding self without difficulty. Cooperative at this time
[2020-12-31 20:19] LABS: Glucose, Whole Blood 97 mg/dL (60-115)
[2020-12-31] MEDS: risperiDONE 0.25 MG TABLET 0.125 MG PO (20:52)
[2020-12-31] MEDS: Lithium Carbonate ER 450 MG TABLET.ER PO (20:56)
[2020-12-31] MEDS: PEG 3350/Na Sulf,Bicarb,Cl/KCL 4,000 ML SOLN.RECON 240 ML NG-TUBE ×2 (21:01)
--- NOTE | 2020-12-31 23:56 | PC.NURSE ---
Pt was unable to tolerate Gavilyte bowel prep and refused to drink it. pt also refused the PRN fleet enemas, despite me telling him the importance of the bowel prep prior to his endoscopy/colonoscopy
[2021-01-01] VITALS (12 sets, daily range): BP systolic 116–152; BP diastolic 34–91; PULSE 60–159; RESP 12–24; TEMP 35.7–37.6; O2SAT 94–100
[2021-01-01] MEDS: Levothyroxine Sodium 50 MCG TABLET PO (06:48)
[2021-01-01] MEDS: Pantoprazole Sodium 40 MG/10 ML VIAL IVPUSH (06:51)
[2021-01-01 06:54] LABS: Hematocrit 26.9 % (42-52); Mean Corpuscular HGB Conc 29.7 g/dl (31.0-36.0); Mean Corpuscular Hemoglobin 23.3 pg (27.0-33.0); Mean Corpuscular Volume 78.4 fL (80-98); Mean Platelet Volume 8.9 fL (9.4-12.4); Platelet Count 266 X10*3/uL (160-400); Red Blood Count 3.43 X10*6/uL (4.60-5.80); Red Cell Distribution Width 16.9 % (11.0-16.0); White Blood Count 10.7 X10*3/uL (4.8-10.8)
[2021-01-01 07:28] LABS: Anion Gap 10 (12-20); Blood Urea Nitrogen 18 mg/dL (9-16); Calcium 8.3 mg/dL (8.4-10.2); Carbon Dioxide 19 mmol/L (22-29); Chloride 118 mmol/L (96-108); Creatinine Clr Calc Pharmacy 46.7; Estimated Glomerular Filt Rate 46; Glucose Random 107 mg/dL (60-115); Potassium 4.1 mmol/L (3.3-5.1); Sodium 143 mmol/L (135-145)
[2021-01-01 07:46] LABS: Glucose, Whole Blood 104 mg/dL (60-115)
[2021-01-01] MEDS: atenoloL 50 MG TABLET PO ×2 (08:33→21:07)
[2021-01-01] MEDS: ARIPiprazole 2 MG TABLET 1 MG PO (08:33)
[2021-01-01] MEDS: carBAMazepine ER 200 MG TAB.ER.12H 600 MG PO ×2 (08:34→21:08)
[2021-01-01] MEDS: Artificial Tears 15 ML DROPS 1 DROP EYE-BOTH ×2 (08:41→21:12)
--- NOTE | 2021-01-01 10:28 | MHC.SLORD ---
Speech Language Pathology Order Status: SIMONIZER attempted to see patient for dysphagia evaluation. RN notified SIMONIZER that patient is NPO for endoscopy today. Will continue to follow.
--- NOTE | 2021-01-01 11:04 | MHC.CM.PN ---
PER MULTIDISCIPLINARY ROUNDS PT REFUSING ENEMA, WILL HAVE COLONOSCOPY AND UPPER ENDOSCOPY LATER TODAY IF COMPLIANT. NO PLAN FOR D/C TODAY.
[2021-01-01 11:25] LABS: Glucose, Whole Blood 100 mg/dL (60-115)
--- NOTE | 2021-01-01 12:49 | P.CONAN_ITS ---
HPI - Anesthesia Eval Consult details Narrative: 80 yo male patient with h/o dementia for EGD, Colonoscopy PMF Active Problems Active Problems: All Active Problems (Updated 12/30/20 @ 20:14 by SERENA Alarcon) Acute GI bleeding (Acute) Essential hypertension (Acute) PAF (paroxysmal atrial fibrillation) (Acute) Past Medical History Medical History (Updated 01/01/21 @ 14:26 by Terri Guillen) Diabetes Essential hypertension Hypothyroidism PAF (paroxysmal atrial fibrillation) Psychiatric diagnosis Wheezy Family History Family History Father No problems noted. Mother No problems noted. Family history of problems with anesthesia: No Surgical History Surgical History History of permanent cardiac pacemaker placement (~03/2015) History of Problems with Anesthesia: No Social History Social History Household Members: Other Housing: [facility] Do you presently have visiting nurse or other home services: No Unable to assess alcohol history related to: Refusing to respond Smoking Status: Unknown if ever smoked Use of substances other than those prescribed or required for medical reasons: Unknown Currently Displaying Signs/Symptoms of Drug Intoxication Withdrawal: No Advance Directives: No Advance Directives Information Provided: No Do you have thoughts of harming others: None Do you have a plan to hurt others: No Plan Recently lost weight without trying: Unsure service: Yes Current occupational status: disabled Meds Allergies Allergy/AdvReac Type Severity Reaction Status Date / Time No Known Allergies Allergy Verified 10/13/20 13:44 [No Known Allergies*] Active Medications: Current Medications Generic Name Dose Route Start Last Admin Trade Name Freq PRN Reason Stop Dose Admin Acetaminophen 650 mg 12/30/20 20:18 Acetaminophen 325 Mg Tablet PO Q6H PRN Pain, Mild (Pain Scale 1-3) Aripiprazole 1 mg 01/01/21 09:00 01/01/21 08:33 Aripiprazole 2 Mg Tablet PO 1 mg DAILY LISA Administration Artificial Tears 1 drop 12/31/20 21:00 01/01/21 08:41 Artificial Tears 15 Ml Drops EYE-BOTH 1 drop BID LISA Administration Atenolol 50 mg 12/31/20 21:00 01/01/21 08:33 Atenolol 50 Mg Tablet PO 50 mg BID LISA Administration Protocol Carbamazepine 600 mg 12/31/20 11:30 01/01/21 08:34 Carbamazepine Er 200 Mg Tab.Er.12h PO 600 mg BID LISA Administration Dextrose/Sodium Chloride 1,000 mls @ 50 mls/hr 12/30/20 20:30 12/31/20 16:40 D51/2ns IVCONT 50 mls/hr .Q20H LISA Administration Insulin Human Lispro 0 unit 12/30/20 21:00 01/01/21 11:46 Insulin Lispro 100 Unit/Ml 3 Ml Vial SUBCUT Not Given QIDACHS [facility] Protocol Levothyroxine Sodium 50 mcg 01/01/21 06:30 01/01/21 06:48 Levothyroxine Sodium 50 Mcg Tablet PO 50 mcg DAILY@0630 LISA Administration [place] Carbonate 450 mg 12/31/20 21:00 12/31/20 20:56 [place] Carbonate Er 450 Mg Tablet.Er PO 450 mg BEDTIME LISA Administration Pantoprazole Sodium 40 mg 12/31/20 06:30 01/01/21 06:51 Pantoprazole Sodium 40 Mg/10 Ml Vial IVPUSH 40 mg BID@0630,1630 [facility] Administration Pharmacy Consult 1 each 12/31/20 06:47 Consult Rx Perform Med Rec MISCELLANE ONCE PRN Consult order Risperidone 0.125 mg 12/31/20 21:00 12/31/20 20:52 Risperidone 0.25 Mg Tablet PO 0.125 mg BEDTIME LISA Administration Sodium Biphosphate/Sodium Phosphate 133 ml 12/31/20 21:30 Sodium Phosphate,[place]-Dibasic 133 Ml Enema [place] PREOP PRN Consult order Sodium Chloride 3 ml 12/31/20 00:00 01/01/21 08:33 0.9 % Sodium Chloride Flush 3 Ml Syringe IVFLUSH Not Given QSHIFT [facility] Home Medications Medication Instructions Recorded Confirmed Last Taken Type amlodipine 2.5 mg tablet 2.5 mg PO DAILY 10/13/20 12/31/20 12/30/20 09:00 History apixaban 2.5 mg tablet 2.5 mg PO BID 10/13/20 12/31/20 12/30/20 09:00 History aripiprazole 2 mg tablet 1 mg PO DAILY tab 10/13/20 12/31/20 12/30/20 09:00 History atenolol 50 mg tablet 50 mg PO BID tab 10/13/20 12/31/20 12/30/20 09:00 History carbamazepine 300 mg 600 mg PO BID cap 10/13/20 12/31/20 12/30/20 09:00 History capsule,extended release [id number] dulaglutide 1.5 mg/0.5 mL 1.5 mg SUBCUT SA 10/13/20 12/31/20 12/27/20 History subcutaneous pen injector fenofibrate nanocrystallized 145 145 mg PO DAILY 10/13/20 12/31/20 12/30/20 09:00 History mg tablet insulin glargine 100 unit/mL (3 10 unit SUBCUT DAILY@1100 10/13/20 12/31/20 12/30/20 11:00 History mL) subcutaneous pen levothyroxine 50 mcg tablet 50 mcg PO DAILY@0630 10/13/20 12/31/20 12/30/20 09:00 History lithium carbonate 450 mg 450 mg PO BEDTIME 10/13/20 12/31/20 12/30/20 17:00 History tablet,extended release metformin 1,000 mg tablet 1,000 mg PO BID 10/13/20 12/31/20 12/30/20 09:00 History risperidone 0.25 mg tablet 0.125 mg PO BEDTIME tab 10/13/20 12/31/20 12/30/20 09:00 History simvastatin 10 mg tablet 10 mg PO BEDTIME 10/13/20 12/31/20 12/30/20 17:00 History terazosin 2 mg capsule 2 mg PO BEDTIME 10/13/20 12/31/20 12/30/20 17:00 History multivitamin 1 tab PO DAILY 12/31/20 12/31/20 12/30/20 09:00 History polyvinyl alcohol [Artificial 1 drp OPHTHALMIC (EYE) BID 12/31/20 12/31/20 12/30/20 09:00 History Tears (polyvin alc)] Exam Exam Date and Time: January 01, 2021 1249 Height,Weight and Vital Signs: Height 5 ft 10 in Weight 100.1 kg Last Vital Signs Temp 96.8 F 01/01/21 11:26 Pulse 74 01/01/21 11:26 Resp 18 01/01/21 11:26 BP 131/55 L 01/01/21 11:26 Pulse Ox 96 01/01/21 11:26 Pertinent Lab Results Pertinent Lab Results: Laboratory Tests 12/30/20 12/30/20 12/30/20 16:39 16:39 16:39 WBC 6.5 RBC 2.81 L Hgb 6.1 L* Hct 22.0 L MCV 78.3 L MCH 21.7 L MCHC 27.7 L RDW 16.9 H Plt Count 248 MPV 8.6 L Immature Gran % (Auto) 0.5 H Neut % (Auto) 63.0 Lymph % (Auto) 24.2 [place] % (Auto) 6.4 Eos % (Auto) 5.6 H Baso % (Auto) 0.3 Lymph # (Auto) 1.6 [place] # (Auto) 0.4 Eos # (Auto) 0.4 Baso # (Auto) 0.0 Abs Immat Gran (auto) 0.03 Absolute Neuts (auto) 4.1 Absolute Nucleated RBC 0.000 Nucleated RBC % (auto) 0.0 PT 14.1 H INR 1.2 H APTT 37.3 Sodium Potassium Chloride Carbon Dioxide Anion Gap BUN Creatinine Estim Creat Clear Calc Estimated GFR POC Glucose Random Glucose Calcium Total Bilirubin AST ALT Alkaline Phosphatase Troponin I High Sens 7.8 Total Protein Albumin Urine Color Urine Appearance Urine pH Ur Specific [place] Urine Protein Urine Glucose (UA) Urine Ketones Urine Blood Urine Nitrite Ur Leukocyte Esterase Urine RBC Urine WBC Urine WBC Clumps Ur Squamous Epith Cells Urine Bacteria Stool Occult Blood COVID-19 ([facility]) COVID-19 Clin Com Hep Bs Antigen Hep Bs Antibody Hep B Core Total Ab Hepatitis C Ab (EIA) HIV 1&2 Ab/P24 Ag 4thGn Blood Type Antibody Screen Crossmatch 12/30/20 12/30/20 12/30/20 16:39 16:39 16:40 WBC RBC Hgb Hct MCV MCH MCHC RDW Plt Count MPV Immature Gran % (Auto) Neut % (Auto) Lymph % (Auto) [place] % (Auto) Eos % (Auto) Baso % (Auto) Lymph # (Auto) [place] # (Auto) Eos # (Auto) Baso # (Auto) Abs Immat Gran (auto) Absolute Neuts (auto) Absolute Nucleated RBC Nucleated RBC % (auto) PT INR APTT Sodium 141 Potassium 4.6 Chloride 114 H Carbon Dioxide 20 L Anion Gap 12 BUN 24 H Creatinine 1.39 Estim Creat Clear Calc 49.4 Estimated GFR 49 POC Glucose Random Glucose 102 Calcium 8.6 Total Bilirubin 0.2 AST 12 ALT 11 Alkaline Phosphatase 35 L Troponin I High Sens Total Protein 6.0 L Albumin 3.6 Urine Color Urine Appearance Urine pH Ur Specific [place] Urine Protein Urine Glucose (UA) Urine Ketones Urine Blood Urine Nitrite Ur Leukocyte Esterase Urine RBC Urine WBC Urine WBC Clumps Ur Squamous Epith Cells Urine Bacteria Stool Occult Blood POSITIVE COVID-19 ([facility]) COVID-19 Clin Com Hep Bs Antigen Hep Bs Antibody Hep B Core Total Ab Hepatitis C Ab (EIA) HIV 1&2 Ab/P24 Ag 4thGn Blood Type A Positive Antibody Screen NEGATIVE Crossmatch See Detail 12/30/20 12/30/20 12/30/20 19:24 21:14 23:54 WBC RBC Hgb Hct MCV MCH MCHC RDW Plt Count MPV Immature Gran % (Auto) Neut % (Auto) Lymph % (Auto) [place] % (Auto) Eos % (Auto) Baso % (Auto) Lymph # (Auto) [place] # (Auto) Eos # (Auto) Baso # (Auto) Abs Immat Gran (auto) Absolute Neuts (auto) Absolute Nucleated RBC Nucleated RBC % (auto) PT INR APTT Sodium Potassium Chloride Carbon Dioxide Anion Gap BUN Creatinine Estim Creat Clear Calc Estimated GFR POC Glucose 109 Random Glucose Calcium Total Bilirubin AST ALT Alkaline Phosphatase Troponin I High Sens Total Protein Albumin Urine Color Urine Appearance Urine pH Ur Specific [place] Urine Protein Urine Glucose (UA) Urine Ketones Urine Blood Urine Nitrite Ur Leukocyte Esterase Urine RBC Urine WBC Urine WBC Clumps Ur Squamous Epith Cells Urine Bacteria Stool Occult Blood COVID-19 ([facility]) Negative COVID-19 Clin Com See Note Hep Bs Antigen Negative Hep Bs Antibody NONREACTIVE Hep B Core Total Ab Nonreactive Hepatitis C Ab (EIA) Nonreactive HIV 1&2 Ab/P24 Ag 4thGn Nonreactive Blood Type Antibody Screen Crossmatch 12/31/20 12/31/20 12/31/20 02:32 06:29 06:29 WBC 9.2 RBC 3.54 L D Hgb 8.1 L D Hct 28.1 L D MCV 79.4 L MCH 22.9 L MCHC 28.8 L RDW 16.2 H Plt Count 279 MPV 9.2 L Immature Gran % (Auto) 0.7 H Neut % (Auto) 71.2 Lymph % (Auto) 16.7 L [place] % (Auto) 7.0 Eos % (Auto) 3.9 Baso % (Auto) 0.5 Lymph # (Auto) 1.5 [place] # (Auto) 0.6 Eos # (Auto) 0.4 Baso # (Auto) 0.1 Abs Immat Gran (auto) 0.06 H Absolute Neuts (auto) 6.5 Absolute Nucleated RBC 0.000 Nucleated RBC % (auto) 0.0 PT INR APTT Sodium 143 Potassium 4.6 Chloride 119 H Carbon Dioxide 18 L Anion Gap 11 L BUN 19 H Creatinine 1.26 Estim Creat Clear Calc 54.5 Estimated GFR 55 POC Glucose Random Glucose 100 Calcium 8.4 Total Bilirubin AST ALT Alkaline Phosphatase Troponin I High Sens Total Protein Albumin Urine Color STRAW Urine Appearance HAZY Urine pH 6.5 Ur Specific [place] <= 1.005 Urine Protein NEG Urine Glucose (UA) NEG Urine Ketones NEG Urine Blood 3+ H Urine Nitrite NEG Ur Leukocyte Esterase 3+ H Urine RBC 50-75 H Urine WBC 5-9 H Urine WBC Clumps NOTED Ur Squamous Epith Cells NONE Urine Bacteria 2+ Stool Occult Blood COVID-19 ([facility]) COVID-19 Clin Com Hep Bs Antigen Hep Bs Antibody Hep B Core Total Ab Hepatitis C Ab (EIA) HIV 1&2 Ab/P24 Ag 4thGn Blood Type Antibody Screen Crossmatch 12/31/20 12/31/20 12/31/20 08:01 16:06 20:12 WBC RBC Hgb Hct MCV MCH MCHC RDW Plt Count MPV Immature Gran % (Auto) Neut % (Auto) Lymph % (Auto) [place] % (Auto) Eos % (Auto) Baso % (Auto) Lymph # (Auto) [place] # (Auto) Eos # (Auto) Baso # (Auto) Abs Immat Gran (auto) Absolute Neuts (auto) Absolute Nucleated RBC Nucleated RBC % (auto) PT INR APTT Sodium Potassium Chloride Carbon Dioxide Anion Gap BUN Creatinine Estim Creat Clear Calc Estimated GFR POC Glucose 99 132 H 97 Random Glucose Calcium Total Bilirubin AST ALT Alkaline Phosphatase Troponin I High Sens Total Protein Albumin Urine Color Urine Appearance Urine pH Ur Specific [place] Urine Protein Urine Glucose (UA) Urine Ketones Urine Blood Urine Nitrite Ur Leukocyte Esterase Urine RBC Urine WBC Urine WBC Clumps Ur Squamous Epith Cells Urine Bacteria Stool Occult Blood COVID-19 ([facility]) COVID-19 Clin Com Hep Bs Antigen Hep Bs Antibody Hep B Core Total Ab Hepatitis C Ab (EIA) HIV 1&2 Ab/P24 Ag 4thGn Blood Type Antibody Screen Crossmatch 01/01/21 01/01/21 01/01/21 06:15 06:15 07:23 WBC 10.7 RBC 3.43 L Hgb 8.0 L Hct 26.9 L MCV 78.4 L MCH 23.3 L MCHC 29.7 L RDW 16.9 H Plt Count 266 MPV 8.9 L Immature Gran % (Auto) Neut % (Auto) Lymph % (Auto) [place] % (Auto) Eos % (Auto) Baso % (Auto) Lymph # (Auto) [place] # (Auto) Eos # (Auto) Baso # (Auto) Abs Immat Gran (auto) Absolute Neuts (auto) Absolute Nucleated RBC 0.000 Nucleated RBC % (auto) 0.0 PT INR APTT Sodium 143 Potassium 4.1 Chloride 118 H Carbon Dioxide 19 L Anion Gap 10 L BUN 18 H Creatinine 1.47 H Estim Creat Clear Calc 46.7 Estimated GFR 46 POC Glucose 104 Random Glucose 107 Calcium 8.3 L Total Bilirubin AST ALT Alkaline Phosphatase Troponin I High Sens Total Protein Albumin Urine Color Urine Appearance Urine pH Ur Specific [place] Urine Protein Urine Glucose (UA) Urine Ketones Urine Blood Urine Nitrite Ur Leukocyte Esterase Urine RBC Urine WBC Urine WBC Clumps Ur Squamous Epith Cells Urine Bacteria Stool Occult Blood COVID-19 ([facility]) COVID-19 Clin Com Hep Bs Antigen Hep Bs Antibody Hep B Core Total Ab Hepatitis C Ab (EIA) HIV 1&2 Ab/P24 Ag 4thGn Blood Type Antibody Screen Crossmatch 01/01/21 11:14 WBC RBC Hgb Hct MCV MCH MCHC RDW Plt Count MPV Immature Gran % (Auto) Neut % (Auto) Lymph % (Auto) [place] % (Auto) Eos % (Auto) Baso % (Auto) Lymph # (Auto) [place] # (Auto) Eos # (Auto) Baso # (Auto) Abs Immat Gran (auto) Absolute Neuts (auto) Absolute Nucleated RBC Nucleated RBC % (auto) PT INR APTT Sodium Potassium Chloride Carbon Dioxide Anion Gap BUN Creatinine Estim Creat Clear Calc Estimated GFR POC Glucose 100 Random Glucose Calcium Total Bilirubin AST ALT Alkaline Phosphatase Troponin I High Sens Total Protein Albumin Urine Color Urine Appearance Urine pH Ur Specific [place] Urine Protein Urine Glucose (UA) Urine Ketones Urine Blood Urine Nitrite Ur Leukocyte Esterase Urine RBC Urine WBC Urine WBC Clumps Ur Squamous Epith Cells Urine Bacteria Stool Occult Blood COVID-19 ([facility]) COVID-19 Clin Com Hep Bs Antigen Hep Bs Antibody Hep B Core Total Ab Hepatitis C Ab (EIA) HIV 1&2 Ab/P24 Ag 4thGn Blood Type Antibody Screen Crossmatch Airway Mallampati Class: III TM Dist: >3cm Neck ROM: Full Loose/Missing/Broken Teeth: Yes (Many missing) Heart: RRR Lungs: Bilateral audible wheezes Assessment and Plan Assessment Anesthesia Assessment: Anesthesia Plan Discussed and Chart Reviewed Final Anesthetic Review NPO: Yes ASA Class: III and Emergency Final Preanesthetic Review: No Changes in Pt Med Stat, Meds/Allgs Chart Reviewed, Consent Obtained/Reviewed and Anes Risks/Benef Reviewed Patient Risk: High Procedure Risk: Intermediate Assessment/Block/Sedation in SS: Assess/Block/Sedation-SS Anesthetic Plan Anesthetic Plan: MAC: Disposition: Inp. Admit - Standard Bed
[2021-01-01] MEDS: Lactated Ringers 1,000 ML 100 ML IVCONT (13:30)
--- NOTE | 2021-01-01 13:34 | MHC.SHP ---
Pre-Procedural Eval Section A The patient is an INPATIENT: Yes The History & Physical has been completed within 30 days and I have reviewed it.: Yes Section B Chief Complaint: Anemia Allergies: Allergies Allergy/AdvReac Type Severity Reaction Status Date / Time No Known Allergies Allergy Verified 10/13/20 13:44 [No Known Allergies*] Plan Diagnosis/Plan: Unchanged I have reviewed the history and physical and performed a pertinent physical examination on my patient. No changes have occurred unless specified.
--- NOTE | 2021-01-01 14:16 | PM.OP ---
Brief Operative Note Date of Service: 01/01/21 Pre-op diagnosis: anemia Post-op diagnosis: same Procedure: see op note Surgeon: Carlos England MD Anesthesia: MAC Estimated blood loss (mL): 0 Condition: stable Disposition: PACU
--- NOTE | 2021-01-01 14:16 | W.PM.OPN ---
Operative Note Operative Note Date of Service: 01/01/21 Narrative: Procedure Description: EGD FLEXIBLE TRANSORAL UPPER GASTROINTESTINAL ENDOSCOPY UPPER ENDOSCOPY Consent: Indications for the procedure and potential complications of bleeding, perforation, reaction to medications and missed diagnosis were discussed with the patient and informed consent was obtained. Instrument: Olympus GIF H 190 J mid size upper endoscope Monitoring: Vital signs and clinical assessment, continuous EKG monitoring, Pulse oximetry, Carbon Dioxide monitoring and blood pressure monitoring were done throughout the procedure. Procedure: The patient was placed in the left lateral decubitis position and pre-procedure medications were administered and a bite block was placed. The endoscope was inserted into the mouth and advanced under direct vision to the third part of duodenum. A careful inspection was made as the upper endoscope was withdrawn including a retroflexed examination of the proximal stomach; Findings and interventions are described below. Findings: Larynx:normal Esophagus: GE junction at 44 cm, diaphragm hiatus at 44 cm, no varices or esophagitis. Stomach: Normal mucosa. Grade 2 flap valve on retroflexed examination of the cardia. Duodenum: Normal bulb and descending duodenum, No blood seen in upper Gi tract or evidence of GI bleeding He was turned and rectal exam revealed an moderate sized external hemorrhoid with bluish tinge, and inflammation, A quick view into the rectum with the scope revealed no rectal mass, solid brown stool seen in proximal rectum. Intervention: none Impression/Findings: normal upper endoscopy external hemorrhoids PLAN: He may have been having blood loss from the external hemorrhoids, obviously can;t exclude a lesion else where in colon but he has been combatative and refusing enemas or bowel prep. If he is able to take prep then colonoscopy can be offered otherwise: 1/ Ansuol supps or rectal cream for 1 week 2/ high fiber diet, stool softener and avoid constipation 3/ iron replenishment-IV is prob better to avoid constipation if possible 4/ Primary team can discuss risk/benefit of anti coagulation but from GI point if needed can resume 5/ if he has rectal bleeding and worsening rectal symptoms then may need hemorrhoidectomy.
--- NOTE | 2021-01-01 15:04 | HO.PM.IMPN ---
Subjective Subjective Date of Service: 01/01/21 Interval History: Patient returned from upper endoscopy and colonoscopy is awake alert no behavioral issues asking for lots and lots of watermelon, denies shortness of breath, denies nausea vomiting abdominal discomfort. No hematemesis or melena noted. ROS General no headache, no dizziness, no fever chills. CVS no chest pain, no palpitation. Respiratory no cough, no sob Gastrointestinal no nausea, no vomiting, no abdominal pain Physical Exam Vital Signs: Vital Signs: Last Vital Signs Temp 98.4 F 01/01/21 14:26 Pulse 60 01/01/21 14:52 Resp 20 01/01/21 14:52 BP 125/35 L 01/01/21 14:52 Pulse Ox 97 01/01/21 14:52 Body Mass Index 31.6 General resting comfortably in no acute distress, appears comfortable,Noted to have audible upper respiratory wheeze, Neck supple, no JVD. CVS regular rate rhythm, Respiratory lungs clear to auscultation, no respiratory distress, occasional expiratory wheeze, no rhonchi. Gastrointestinal abdomen soft, nontender, obese, bowel sounds audible, no guarding , no rigidity. Extremities no edema. Neuro nonfocal , patient moving all 4 extremity, speech clear. Psych no behavioral issues Skin no rash Objective Data Current Medications Generic Name Dose Route Start Last Admin Trade Name Freq PRN Reason Stop Dose Admin Acetaminophen 650 mg 12/30/20 20:18 Acetaminophen 325 Mg Tablet PO Q6H PRN Pain, Mild (Pain Scale 1-3) Aripiprazole 1 mg 01/01/21 09:00 01/01/21 08:33 Aripiprazole 2 Mg Tablet PO 1 mg DAILY LISA Administration Artificial Tears 1 drop 12/31/20 21:00 01/01/21 08:41 Artificial Tears 15 Ml Drops EYE-BOTH 1 drop BID LISA Administration Atenolol 50 mg 12/31/20 21:00 01/01/21 08:33 Atenolol 50 Mg Tablet PO 50 mg BID LISA Administration Protocol Carbamazepine 600 mg 12/31/20 11:30 01/01/21 08:34 Carbamazepine Er 200 Mg Tab.Er.12h PO 600 mg BID LISA Administration Dextrose/Sodium Chloride 1,000 mls @ 50 mls/hr 12/30/20 20:30 01/01/21 12:53 D51/2ns IVCONT Infused .Q20H LISA Infusion Lactated Ringer's 1,000 mls @ 100 mls/hr 01/01/21 14:15 01/01/21 15:00 Lr IVCONT Infused .Q10H LISA Infusion Insulin Human Lispro 0 unit 12/30/20 21:00 01/01/21 11:46 Insulin Lispro 100 Unit/Ml 3 Ml Vial SUBCUT Not Given QIDACHS [facility] Protocol Levothyroxine Sodium 50 mcg 01/01/21 06:30 01/01/21 06:48 Levothyroxine Sodium 50 Mcg Tablet PO 50 mcg DAILY@0630 LISA Administration [place] Carbonate 450 mg 12/31/20 21:00 12/31/20 20:56 [place] Carbonate Er 450 Mg Tablet.Er PO 450 mg BEDTIME LISA Administration Ondansetron HCl 4 mg 01/01/21 14:03 Ondansetron Hcl 4 Mg/2 Ml Vial IVPUSH ONCE PRN Nausea and Vomiting Pantoprazole Sodium 40 mg 12/31/20 06:30 01/01/21 06:51 Pantoprazole Sodium 40 Mg/10 Ml Vial IVPUSH 40 mg BID@0630,1630 [facility] Administration Pharmacy Consult 1 each 12/31/20 06:47 Consult Rx Perform Med Rec MISCELLANE ONCE PRN Consult order Risperidone 0.125 mg 12/31/20 21:00 12/31/20 20:52 Risperidone 0.25 Mg Tablet PO 0.125 mg BEDTIME LISA Administration Sodium Biphosphate/Sodium Phosphate 133 ml 12/31/20 21:30 Sodium Phosphate,[place]-Dibasic 133 Ml Enema [place] PREOP PRN Consult order Sodium Chloride 3 ml 12/31/20 00:00 01/01/21 08:33 0.9 % Sodium Chloride Flush 3 Ml Syringe IVFLUSH Not Given QSHIFT [facility] Labs CBC & Chem 7: 01/01/21 06:15 01/01/21 06:15 Microbiology Microbiology Results: Microbiology 12/31/20 02:31 Urine [place] Urine Culture - Preliminary Gram negative cass Assessment and Plan (1) Anemia: Status: Acute (2) Essential hypertension: Status: Acute (3) PAF (paroxysmal atrial fibrillation): Status: Acute (4) Diabetes: Status: Acute (5) Hypothyroidism: Status: Acute (6) Psychiatric diagnosis: Problem details: ? schizophrenia Status: Acute (7) Wheezy: Problem details: Bilateral wheezing. Patient refuses nebulizer treatment Status: Acute Assessment and Plan: 80-year-old male with a past medical history of hypertension, hyperlipidemia, diabetes, chronic kidney disease, atrial fibrillation on Eliquis, history of pacemaker, dementia, psychiatric disease, [facility] with chief complaint of anemia. Acute on chronic blood-loss anemia No active bleeding noted likely chronic GI bleed while on chronic anticoagulation but no source of GI bleed noted Hemoglobin improved to 8 after 2 units transfusion, slight drop in hematocrit today but stable Guaiac-positive stool. On IV ppi b.i.d. will discontinue Patient underwent upper endoscopy this morning that showed normal stomach mucosa no esophagitis normal do denies no blood seen in the upper GI tract, colonoscopy showed moderate side external hemorrhoids bluish tinge in inflammation there was no rectal mass noted GI recommend Anusol suppository for 1 week, high-fiber diet, GI recommend to resume Eliquis, will discuss with primary provider regarding resumption of Eliquis Will DC IV fluid and resume diet Will discuss with GI regarding imaging studies since no source of anemia found/will obtain iron studies, consider hematology workup. Audible wheeze likely related to upper airway obstruction/inflammation otherwise lungs are clear to auscultation, no respiratory distress Patient not on home oxygen, oxygenation stable, will add as needed updraft treatment and follow clinical course Bipolar disorder/dementia/psychiatric history with behavioral issues No recurrent aggressive behavior noted in last 24 hours, continue home medication History of AFib Continue atenolol for rate control, Eliquis on hold due to anemia Hypertension BP stable continue atenolol , resume Norvasc if noted to have worsening blood pressure Diabetes Place patient on diabetic ground diet, follow blood sugar and continue Insulin sliding scale, will resume Lantus 10 units at bedtime, dulaglutide and metformin once able to tolerate by mouth. Question seizure disorder Continue carbamazepine/add seizure precaution DVT prophylaxis: SCD boots
[2021-01-01 16:38] LABS: Glucose, Whole Blood 88 mg/dL (60-115)
[2021-01-01] MEDS: 0.9 % Sodium Chloride Flush 3 ML SYRINGE IVFLUSH ×2 (17:26→21:12)
[2021-01-01 20:26] LABS: Glucose, Whole Blood 117 mg/dL (60-115)
[2021-01-01] MEDS: risperiDONE 0.25 MG TABLET 0.125 MG PO (21:08)
[2021-01-01] MEDS: Lithium Carbonate ER 450 MG TABLET.ER PO (21:08)
[2021-01-01] MEDS: Hydrocortisone 2.5 % Rectal Cr 30 GM TUBE 1 APPL PR (21:12)
[2021-01-02] VITALS (7 sets, daily range): BP systolic 134–164; BP diastolic 55–79; PULSE 60–110; RESP 16–19; TEMP 36.2–37.3; O2SAT 95–98
[2021-01-02] MEDS: Levothyroxine Sodium 50 MCG TABLET PO (05:56)
[2021-01-02 06:08] LABS: MANUAL DIFF FLAG NO
[2021-01-02 06:14] LABS: Basophils Percent Auto 0.4 % (0-2); Eosinophils Absolute Auto 0.4 X10*3/uL (0.0-0.4); Eosinophils Percent Auto 3.6 % (0-4); Hemoglobin 8.2 g/dl (14.0-18.0); Imm Gran Abs Auto 0.04 X10*3/uL (0.00-0.03); Imm Gran Pct Auto 0.4 % (0.0-0.4); Lymphocytes Absolute Auto 1.6 X10*3/uL (1.2-4.9); Lymphocytes Percent Auto 14.6 % (20-40); Mean Corpuscular HGB Conc 28.3 g/dl (31.0-36.0); Mean Corpuscular Hemoglobin 22.5 pg (27.0-33.0); Mean Corpuscular Volume 79.7 fL (80-98); Mean Platelet Volume 9.5 fL (9.4-12.4); Monocytes Absolute Auto 0.8 X10*3/uL (0.1-1.2); Monocytes Percent Auto 7.6 % (2-11); Neutrophils Absolute Auto 7.8 X10*3/uL (2.0-8.3); Neutrophils Percent Auto 73.4 % (45-73); Platelet Count 254 X10*3/uL (160-400); Red Blood Count 3.64 X10*6/uL (4.60-5.80); Red Cell Distribution Width 17.5 % (11.0-16.0); White Blood Count 10.7 X10*3/uL (4.8-10.8)
[2021-01-02 06:47] LABS: Anion Gap 14 (12-20); Blood Urea Nitrogen 21 mg/dL (9-16); Calcium 8.1 mg/dL (8.4-10.2); Carbon Dioxide 16 mmol/L (22-29); Chloride 117 mmol/L (96-108); Creatinine Clr Calc Pharmacy 43.7; Estimated Glomerular Filt Rate 43; Glucose Random 102 mg/dL (60-115); Iron 22 mcg/dL (45-160); Percent Iron Saturation 6 % (15-50); Potassium 3.9 mmol/L (3.3-5.1); Sodium 143 mmol/L (135-145); Total Iron Binding Capacity 389 mcg/dL (228-428); Unsaturated Iron Binding 367 ug/dL
[2021-01-02 07:12] LABS: Ferritin 25 ng/mL (20-250)
[2021-01-02 08:07] LABS: Glucose, Whole Blood 94 mg/dL (60-115)
[2021-01-02] MEDS: atenoloL 50 MG TABLET PO ×2 (08:54→21:07)
[2021-01-02] MEDS: carBAMazepine ER 200 MG TAB.ER.12H 600 MG PO ×2 (08:54→21:08)
[2021-01-02] MEDS: ARIPiprazole 2 MG TABLET 1 MG PO (08:54)
[2021-01-02] MEDS: Artificial Tears 15 ML DROPS 1 DROP EYE-BOTH ×2 (08:55→21:07)
[2021-01-02] MEDS: 0.9 % Sodium Chloride Flush 3 ML SYRINGE IVFLUSH ×3 (08:55→21:08)
--- NOTE | 2021-01-02 10:41 | P.PNIM_ITS ---
Subjective Subjective Date of Service: 01/02/21 Interval History: Patient awake alert offers no acute complaints denies urinary symptoms of urgency, frequent, no abdominal discomfort. ROS General no headache, no dizziness, no fever chills. CVS no chest pain, no palpitation. Respiratory no cough, no sob Gastrointestinal no nausea, no vomiting, no abdominal pain Physical Exam Vital Signs: Vital Signs: Last Vital Signs Temp 97.5 F 01/02/21 08:00 Pulse 60 01/02/21 08:00 Resp 16 01/02/21 08:00 BP 140/79 H 01/02/21 08:00 Pulse Ox 97 01/02/21 08:00 Body Mass Index 31.6 General resting comfortably no acute distress, audible upper respiratory wheeze Neck supple, no JVD. CVS regular rate rhythm, Respiratory lungs clear to auscultation, no respiratory distress, occasional expiratory wheeze, no rhonchi. Gastrointestinal abdomen soft, nontender, obese, bowel sounds audible, no guarding , no rigidity. Extremities no edema. Neuro patient moving all 4 extremity, speech clear. Psych no behavioral issues Skin no rash Huggins with clear urine Objective Data Current Medications Generic Name Dose Route Start Last Admin Trade Name Freq PRN Reason Stop Dose Admin Acetaminophen 650 mg 12/30/20 20:18 Acetaminophen 325 Mg Tablet PO Q6H PRN Pain, Mild (Pain Scale 1-3) Aripiprazole 1 mg 01/01/21 09:00 01/02/21 08:54 Aripiprazole 2 Mg Tablet PO 1 mg DAILY LISA Administration Artificial Tears 1 drop 12/31/20 21:00 01/02/21 08:55 Artificial Tears 15 Ml Drops EYE-BOTH 1 drop BID LISA Administration Atenolol 50 mg 12/31/20 21:00 01/02/21 08:54 Atenolol 50 Mg Tablet PO 50 mg BID LISA Administration Protocol Carbamazepine 600 mg 12/31/20 11:30 01/02/21 08:54 Carbamazepine Er 200 Mg Tab.Er.12h PO 600 mg BID LISA Administration Hydrocortisone 1 appl 01/01/21 21:00 01/01/21 21:12 Hydrocortisone 2.5 % Rectal Cr 30 Gm Tube GA 1 appl BEDTIME LISA Administration Sodium Chloride 1,000 mls @ 100 mls/hr 01/02/21 10:15 Ns IVCONT .Q10H LISA Ceftriaxone Sodium 1 gm/ 50 mls @ 100 mls/hr 01/02/21 10:45 Sodium Chloride IV Q24H [facility] Insulin Human Lispro 0 unit 12/30/20 21:00 01/02/21 08:48 Insulin Lispro 100 Unit/Ml 3 Ml Vial SUBCUT Not Given QIDACHS [facility] Protocol Levothyroxine Sodium 50 mcg 01/01/21 06:30 01/02/21 05:56 Levothyroxine Sodium 50 Mcg Tablet PO 50 mcg DAILY@0630 LISA Administration [place] Carbonate 450 mg 12/31/20 21:00 01/01/21 21:08 [place] Carbonate Er 450 Mg Tablet.Er PO 450 mg BEDTIME LISA Administration Ondansetron HCl 4 mg 01/01/21 14:03 Ondansetron Hcl 4 Mg/2 Ml Vial IVPUSH ONCE PRN Nausea and Vomiting Pharmacy Consult 1 each 12/31/20 06:47 Consult Rx Perform Med Rec MISCELLANE ONCE PRN Consult order Risperidone 0.125 mg 12/31/20 21:00 01/01/21 21:08 Risperidone 0.25 Mg Tablet PO 0.125 mg BEDTIME LISA Administration Sodium Biphosphate/Sodium Phosphate 133 ml 12/31/20 21:30 Sodium Phosphate,[place]-Dibasic 133 Ml Enema GA PREOP PRN Consult order Sodium Chloride 3 ml 12/31/20 00:00 01/02/21 08:55 0.9 % Sodium Chloride Flush 3 Ml Syringe IVFLUSH 3 ml QSHIFT LISA Administration Labs CBC & Chem 7: 01/02/21 05:53 01/02/21 05:53 Microbiology Microbiology Results: Microbiology 12/31/20 02:31 Urine Huggins [place] Urine Culture - Final Klebsiella pneumoniae Assessment and Plan (1) UTI (urinary tract infection): Status: Acute (2) Anemia: Status: Acute (3) Psychiatric diagnosis: Problem details: ? schizophrenia Status: Acute (4) Hypothyroidism: Status: Acute (5) Diabetes: Status: Acute (6) Essential hypertension: Status: Acute (7) PAF (paroxysmal atrial fibrillation): Status: Acute (8) Wheezy: Problem details: Bilateral wheezing. Patient refuses nebulizer treatment Status: Acute Assessment and Plan: 80-year-old male with a past medical history of hypertension, hyperlipidemia, d iabetes, chronic kidney disease, atrial fibrillation on Eliquis, history of pacemaker, dementia, psychiatric disease, presented from the long term with chief complaint of anemia. Acute on chronic blood-loss anemia No active bleeding noted likely bleeding from external hemorrhoid, no other source of GI bleed noted,Guaiac-positive stool. Hemoglobin improved to 8 after 2 units transfusion, repeat hemo crit remains stable Patient underwent upper endoscopy on 01/01 that showed normal stomach mucosa, no esophagitis ,no blood seen in the upper GI tract, colonoscopy showed moderate size external hemorrhoids bluish tinge in inflammation there was no rectal mass noted. GI recommend Anusol suppository for 1 week, high-fiber diet, GI recommend to resume Eliquis Will obtain CT abdomen to look for any other source of GI bleed prior to starting Eliquis. Acute UTI Urine culture grew Klebsiella pneumonia will place patient on IV ceftriaxone Urinary retention Patient placed on Huggins catheter in the emergency room due to retention will place patient on Flomax and can have voiding trial after 1 week as outpatient Audible wheeze likely related to upper airway obstruction/inflammation otherwise lungs are clear to auscultation, no respiratory distress Patient not on home oxygen, oxygenation stable, continue as needed updraft treatment and follow clinical course Bipolar disorder/dementia/psychiatric history with behavioral issues No recurrent aggressive behavior noted in last 24 hours, continue home medication History of AFib Continue atenolol for rate control, Eliquis on hold as above Hypertension BP stable continue atenolol , resume Norvasc Diabetes Place patient on diabetic ground diet, follow blood sugar and continue Insulin sliding scale, resume Lantus 10 units at bedtime, and metformin if blood sugars alows hold metformin due to rising creatinine. Question seizure disorder Continue carbamazepine/seizure precaution DVT prophylaxis: SCD boots
--- NOTE | 2021-01-02 11:49 | MHC.CM.PN ---
EMR REVIEWED, PER MULTIDISCIPLINARY ROUNDS PT WILL NEED CT OF ABD, IS RECEIVING IV ABX AND IV FLUIDS, POSSIBLE WEEKEND D/C, [facility] UPDATED.
[2021-01-02 12:09] LABS: Glucose, Whole Blood 115 mg/dL (60-115)
[2021-01-02 12:30] LABS: Estimated Average Glucose 103 mg/dL; Hemoglobin A1c % 5.2 %
[2021-01-02] MEDS: 0.9 % Sodium Chloride 1,000 ML 100 ML IVCONT (12:54)
[2021-01-02] MEDS: cefTRIAXone sodium 1 GM in 0.9 % Sodium Chloride 50 ML IV (12:54)
--- NOTE | 2021-01-02 13:49 | MHC.SL.SWA ---
Speech Pathologist Impression: Risk of Aspiration Risk of Aspiration Due to: Neurological Condition Dysphasia Diet Status: No Change Liquid Consistency and Strategies for Safe Swallow: Liquid Intake Recommendation: Thin Liquid Intake Strategies: Small Sips Solid Food Consistency: Dietary Recommendations: Chopped/Advanced (NDD3) Oral Medication Intake: Whole with Puree Compensatory Strategies and Precautions to be Taken for Safe Swallow: Sitting Upright (90 deg) Small Bites and Sips Alternate Liquids/Solids Rate of Ingestion Change Supervision While Eating and Drinking for Safe Swallow: Total Supervision (1:1) Swallowing Recommended Treatments: Compens. Strategy Educat. Recommendation for Speech: Inpatient Speech Therapy Comment: ROLL BUCKER to follow up to ensure tolerance. Recommend supervision during meals to ensure aspiration precautions. Recommend monitor bolus size to ensure small sips and individual sips. Enterprise Account Manager Clinican/Clinical Fellow: No Supervisory Statement: I have reviewed and agree with the student/clinical fellow's documentation: N/A Speech Language Pathologist: Jacinta Gr M.A., CCC-ROLL BUCKER
--- NOTE | 2021-01-02 14:07 | HO.POSTANES ---
Post Anesthesia Evaluation Post Anesthesia Evaluation Vital Signs: Vital Signs Temp Pulse Resp BP Pulse Ox 01/02/21 12:00 98.5 F 68 19 164/74 H 96 01/02/21 08:00 97.5 F 60 16 140/79 H 97 01/02/21 03:49 97.9 F 110 H 18 137/55 L 97 Anesthesia: Monitored Mental Status: Awake Pain Control: Satisfactory Nausea/Vomiting: None Hydration: Adequate Anesthesia-Related Issues: No Anes. Related Issues
[2021-01-02 16:16] LABS: Glucose, Whole Blood 99 mg/dL (60-115)
[2021-01-02 20:41] LABS: Glucose, Whole Blood 90 mg/dL (60-115)
[2021-01-02] MEDS: risperiDONE 0.25 MG TABLET 0.125 MG PO (21:07)
[2021-01-02] MEDS: Lithium Carbonate ER 450 MG TABLET.ER PO (21:07)
[2021-01-02] MEDS: Tamsulosin HCL 0.4 MG CAPSULE PO (21:07)
[2021-01-02] MEDS: Hydrocortisone 2.5 % Rectal Cr 30 GM TUBE 1 APPL PR (21:33)
[2021-01-03 04:00] VITALS: BP 154/68; PULSE 73; RESP 18; TEMP 36.7; O2SAT 95
[2021-01-03] MEDS: Benzonatate 100 MG CAPSULE PO (06:09)
[2021-01-03] MEDS: Levothyroxine Sodium 50 MCG TABLET PO (06:09)
[2021-01-03 07:20] LABS: Anion Gap 12 (12-20); Blood Urea Nitrogen 23 mg/dL (9-16); Calcium 8.2 mg/dL (8.4-10.2); Carbon Dioxide 18 mmol/L (22-29); Chloride 117 mmol/L (96-108); Creatinine Clr Calc Pharmacy 44.9; Estimated Glomerular Filt Rate 44; Glucose Random 173 mg/dL (60-115); Potassium 3.6 mmol/L (3.3-5.1); Sodium 143 mmol/L (135-145)
[2021-01-03 07:52] LABS: Glucose, Whole Blood 133 mg/dL (60-115)
[2021-01-03 08:00] VITALS: BP 144/65; PULSE 79; RESP 18; TEMP 36.8; O2SAT 95
[2021-01-03] MEDS: carBAMazepine ER 200 MG TAB.ER.12H 600 MG PO (08:27)
[2021-01-03] MEDS: atenoloL 50 MG TABLET PO (08:27)
[2021-01-03] MEDS: ARIPiprazole 2 MG TABLET 1 MG PO (08:28)
[2021-01-03] MEDS: 0.9 % Sodium Chloride Flush 3 ML SYRINGE IVFLUSH (08:29)
--- NOTE | 2021-01-03 09:04 | MHC.INPTTRAN ---
F/C for retention. Draining yellow urine. will cont with A/B. Started on flomax for retention. Deanna diet. Denies pain. OOB with assist.
[2021-01-03] MEDS: cefTRIAXone sodium 1 GM in 0.9 % Sodium Chloride 50 ML IV (09:18)
--- NOTE | 2021-01-03 11:00 | PM.DS ---
DS: Providers Provider Date of Service: 01/03/21 Date of admission: 12/30/20 20:19 Primary care physician: Sterling Be DO Consults: 12/30/20 20:38 Consult to Gastroenterology Routine Consulting Provider: Hafsa Clark Reason for consultation: Guaiac positive stool DS: Diagnosis Discharge Diagnosis (1) UTI (urinary tract infection): Status: Acute (2) Anemia: Status: Acute (3) Psychiatric diagnosis: Status: Acute Problem details: ? schizophrenia (4) Hypothyroidism: Status: Acute (5) Diabetes: Status: Acute (6) Essential hypertension: Status: Acute (7) PAF (paroxysmal atrial fibrillation): Status: Acute (8) Wheezy: Status: Acute Problem details: Bilateral wheezing. Patient refuses nebulizer treatment DS: Medications Discharge Medications Home Medications: Home Medications Medication Instructions Recorded Confirmed amlodipine 2.5 mg tablet 2.5 mg PO DAILY 10/13/20 12/31/20 apixaban 2.5 mg tablet 2.5 mg PO BID 10/13/20 12/31/20 aripiprazole 2 mg tablet 1 mg PO DAILY tab 10/13/20 12/31/20 atenolol 50 mg tablet 50 mg PO BID tab 10/13/20 12/31/20 carbamazepine 300 mg 600 mg PO BID cap 10/13/20 12/31/20 capsule,extended release [id number] dulaglutide 1.5 mg/0.5 mL 1.5 mg SUBCUT SA 10/13/20 12/31/20 subcutaneous pen injector fenofibrate nanocrystallized 145 145 mg PO DAILY 10/13/20 12/31/20 mg tablet insulin glargine 100 unit/mL (3 10 unit SUBCUT DAILY@1100 10/13/20 12/31/20 mL) subcutaneous pen levothyroxine 50 mcg tablet 50 mcg PO DAILY@0630 10/13/20 12/31/20 lithium carbonate 450 mg 450 mg PO BEDTIME 10/13/20 12/31/20 tablet,extended release metformin 1,000 mg tablet 1,000 mg PO BID 10/13/20 12/31/20 risperidone 0.25 mg tablet 0.125 mg PO BEDTIME tab 10/13/20 12/31/20 simvastatin 10 mg tablet 10 mg PO BEDTIME 10/13/20 12/31/20 terazosin 2 mg capsule 2 mg PO BEDTIME 10/13/20 12/31/20 multivitamin 1 tab PO DAILY 12/31/20 12/31/20 polyvinyl alcohol [Artificial 1 drp OPHTHALMIC (EYE) BID 12/31/20 12/31/20 Tears (polyvin alc)] Previous Rx's Medication Instructions Recorded cefuroxime axetil 500 mg PO Q12H #10 tab 01/03/21 hydrocortisone [Proctozone-HC] 1 appl SC BEDTIME 5 Days #30 g 01/03/21 DS: Summary Hospital Course Hospital Course: History of presenting illness Chief Complaint: Anemia 80-year-old male past medical history of hypertension, hyperlipidemia, diabetes, chronic kidney disease, AFib on Eliquis, hypothyroidism, GERD, history of pacemaker bipolar, dementia, psychiatric disease,Has a guardian presented from the [facility] chief complaint of abnormal labs-noted to have hemoglobin of 6.2; Patient is a poor historian. I tried to reach the [facility] not able to it was going to the voicemail. I spoke to the patient's guardian Rebel Sol- [phone]. Most of the history obtained from the records and the ER staff. Reportedly patient did not have any chest pain, palpitations, lightheadedness or dizziness. Denies any active signs of bleeding. Per ER team patient rectal exam showed brown guaiac positive stool. Lab showed hemoglobin of 6.1. Patient's prior hemoglobin was 9.4 on 08/31/18. Patient's current mental status is at his baseline. Patient denies any fever, chills ,cough. Denies any abdominal discomfort. Hospital course 80-year-old male with a past medical history of hypertension, hyperlipidemia, diabetes, chronic kidney disease, atrial fibrillation on Eliquis, history of pacemaker, dementia, psychiatric disease, presented from the [facility] with chief complaint of anemia. Acute on chronic blood-loss anemia, patient noted to have no active bleeding, he received 2 units of packed RBC and hemoglobin improved and remained stable, patient underwent upper endoscopy on 01/01 that showed normal stomach mucosa, no esophagitis ,no blood seen in the upper GI tract, rectal examination showed moderate size external hemorrhoids bluish tinge,there was no rectal mass noted. Abdominal CT scan showed no abnormality, patient is being treated with hemorrhoidal cream and high-fiber diet since no active bleeding found GI recommended to resume Eliquis Recommend to follow CBC in 1 week and avoid constipation and straining. Acute UTI patient offers no acute complaints but was noted to have urinary retention in ER , a Huggins catheter was placed, urinalysis was positive,Urine culture grew Klebsiella pneumonia patient treated with IV ceftriaxone for 2 days and now being discharged on by mouth Ceftin 500 mg b.i.d. for 5 more days, can DC Huggins catheter and give voiding trial continue terazosin. Patient noted to have Audible wheeze likely related to upper airway obstruction/inflammation otherwise lungs are clear to auscultation, no respiratory distress noted, oxygenation remains stable, No treatment given, patient noted to have no further wheezing at time of discharge. Bipolar disorder/dementia/psychiatric history with behavioral issues continue home medication History of AFib Continue atenolol for rate control, and resume Eliquis Hypertension BP stable continue atenolol and Norvasc Resume all home medications for diabetes and ? seizure disorder Time Spent with Patient Time attestation: Total time spent providing and/or coordinating discharge services: Discharge coordination time: Greater than 30 minutes Physical Exam Vital Signs: Vital Signs: Last Vital Signs Temp 98.3 F 01/03/21 08:00 Pulse 79 01/03/21 08:00 Resp 18 01/03/21 08:00 BP 144/65 H 01/03/21 08:00 Pulse Ox 95 01/03/21 08:00 Body Mass Index 31.6 General no acute distress, no upper respiratory wheeze Neck supple, no JVD. CVS regular rate rhythm, Respiratory lungs clear to auscultation, no respiratory distress, no rhonchi. Gastrointestinal abdomen soft, nontender, obese, bowel sounds audible, no guarding , no rigidity. Extremities no edema. Neuro patient moving all 4 extremity, speech clear. Psych no behavioral issues Skin no rash Huggins with clear urine DS: Data Data Completed and Pending Labs on day of discharge: Laboratory Results - last 24 hr 01/02/21 01/02/21 01/02/21 05:53 12:01 16:06 Sodium Potassium Chloride Carbon Dioxide Anion Gap BUN Creatinine Estim Creat Clear Calc Estimated GFR POC Glucose 115 99 Random Glucose Estimat Average Glucose 103 Hemoglobin A1c % 5.2 Calcium 01/02/21 01/03/21 01/03/21 20:34 06:14 07:12 Sodium 143 Potassium 3.6 Chloride 117 H Carbon Dioxide 18 L Anion Gap 12 BUN 23 H Creatinine 1.53 H Estim Creat Clear Calc 44.9 Estimated GFR 44 POC Glucose 90 133 H Random Glucose 173 H D Estimat Average Glucose Hemoglobin A1c % Calcium 8.2 L Discharge Plan Discharge Patient Disposition: Xfer [facility] Discharge Diagnosis: Acute on chronic blood loss Anemia UTI Referrals: Sterling Be DO [Primary Care Provider] - 1 Week Discharge Medications: New cefuroxime axetil 500 mg tablet 500 mg PO Q12H Qty: 10 RF: 0 hydrocortisone [Proctozone-HC] 2.5 % Cream With Perineal Applicator 1 appl SC BEDTIME 5 Days Qty: 30 RF: 0 Continued multivitamin Tablet 1 tab PO DAILY RF: 0 polyvinyl alcohol [Artificial Tears (polyvin alc)] 1.4 % Drops 1 drp ophthalmic (eye) BID RF: 0 dulaglutide 1.5 mg/0.5 mL pen injector 1.5 mg subcut SA RF: 0 apixaban 2.5 mg tablet 2.5 mg PO BID RF: 0 insulin glargine 100 unit/mL (3 mL) insulin pen 10 unit subcut DAILY@1100 RF: 0 carbamazepine 300 mg capsule, ER multiphase 12 hr 600 mg PO BID RF: 0 risperidone 0.25 mg tablet 0.125 mg PO BEDTIME RF: 0 lithium carbonate 450 mg tablet extended release 450 mg PO BEDTIME RF: 0 amlodipine 2.5 mg tablet 2.5 mg PO DAILY RF: 0 aripiprazole 2 mg tablet 1 mg PO DAILY RF: 0 levothyroxine 50 mcg tablet 50 mcg PO DAILY@0630 RF: 0 simvastatin 10 mg tablet 10 mg PO BEDTIME RF: 0 fenofibrate nanocrystallized 145 mg tablet 145 mg PO DAILY RF: 0 terazosin 2 mg capsule 2 mg PO BEDTIME RF: 0 metformin 1,000 mg tablet 1,000 mg PO BID RF: 0 atenolol 50 mg tablet 50 mg PO BID RF: 0 Discharge Orders: Discharge Order (Routine); Ordered 01/03/21 Ordered By: Suleiman Felton Diet: diabetic diet Activity on Discharge: As tolerated Stand Alone Forms: Patient Portal Discharge page Care Plan Goals: Continue treatment for external hemorrhoids for 1 week and UTI take antibiotics for 5 more days Health Concerns: Anemia, likely anemia of chronic disease due to chronic kidney disease as well as acute on chronic blood-loss anemia likely related to external hemorrhoids Resume Eliquis as before follow CBC in 1 week. Plan of Treatment: Outpatient follow-up with primary care physician in 1 week Assessment: As per discharge summary
--- NOTE | 2021-01-03 11:29 | MHC.CM.PN ---
PATIENT IS RETURNING TO [facility] TODAY. [facility] TO TRANSPORT. BIOMEDICAL SCIENTIST AWARE OF PLAN. IMM 01/03 IN CHART AND ORIGINAL SENT WITH PATIENT BACK TO FACILITY. RN AND UNIT AWARE OF PLAN.
[2021-01-03 11:35] LABS: Glucose, Whole Blood 147 mg/dL (60-115)
[2021-01-03 12:57] LABS: COVID-19 Test Negative (Negative)
== END 2021-01-03 16:10 | disposition skilled nursing facility (03) | DRG 690 ==
LOC: HO.ED 20:14 → HO.EDOVER 20:42 → HO.S3 12-31 07:15
PROVIDERS: Internal Medicine Gastroenterology; Physician Assistant; Student in an Organized Health Care Education/Training Program; Admitting Provider Hospitalist; Emergency Provider Student in an Organized Health Care Education/Training Program; PCP Hospitalist; Visit Provider Hospitalist
PROC: 0DJ08ZZ Inspection of Upper Intestinal Tract, Via Natural or Artificial Opening Endoscopic (ICD-10-PCS; principal; 2021-01-01 14:10)
DX: N39.0 Urinary tract infection, site not specified (principal); D62 Acute posthemorrhagic anemia; F03.91 Unspecified dementia, unspecified severity, with behavioral disturbance; E03.9 Hypothyroidism, unspecified; G40.909 Epilepsy, unspecified, not intractable, without status epilepticus; Z95.0 Presence of cardiac pacemaker; I48.0 Paroxysmal atrial fibrillation; R33.9 Retention of urine, unspecified; F20.9 Schizophrenia, unspecified; K64.4 Residual hemorrhoidal skin tags; I12.9 Hypertensive chronic kidney disease with stage 1 through stage 4 chronic kidney disease, or unspecified chronic kidney disease; R19.5 Other fecal abnormalities; B96.1 Klebsiella pneumoniae [K. pneumoniae] as the cause of diseases classified elsewhere; E11.22 Type 2 diabetes mellitus with diabetic chronic kidney disease; N18.9 Chronic kidney disease, unspecified; Z20.822 Contact with and (suspected) exposure to COVID-19; Z79.4 Long term (current) use of insulin; Z79.01 Long term (current) use of anticoagulants; Z79.890 Hormone replacement therapy; Z79.899 Other long term (current) drug therapy
CPT/HCPCS: 36415; 74176; 80048; 80053; 81001; 81003; 82272; 82728; 82947; 83036; 83540; 84484; 85025; 85027; 85610; 85730; 86704; 86706; 86803; 86850; 86900; 86901; 86920; 87086; 87088; 87186; 87340; 87389; 87635; 92610; 93005; 96361; 96374; 96375; 99285; 99291; J0696; J2060; P9016

== ENCOUNTER → 2021-04-13 13:06 | Outpatient (BNVA) | payer MEDICARE, MEDICAID, SELFPAY | PROVIDERS: PCP Hospitalist; Referring Provider Hospitalist; Visit Provider Internal Medicine | DX: Z45.018 Encounter for adjustment and management of other part of cardiac pacemaker (principal); I48.0 Paroxysmal atrial fibrillation; I10 Essential (primary) hypertension; K92.2 Gastrointestinal hemorrhage, unspecified | CPT/HCPCS: 99212 ==

== ENCOUNTER → 2021-10-19 13:13 | Outpatient (BNVA) | payer MEDICARE, MEDICAID, SELFPAY | PROVIDERS: PCP Hospitalist; Referring Provider Hospitalist; Visit Provider Internal Medicine | DX: Z45.018 Encounter for adjustment and management of other part of cardiac pacemaker (principal); I48.0 Paroxysmal atrial fibrillation; I10 Essential (primary) hypertension; K92.2 Gastrointestinal hemorrhage, unspecified | CPT/HCPCS: 99212 ==

== ENCOUNTER 2022-01-04 11:55 | Outpatient (REF) | payer MEDICARE, MEDICAID, SELFPAY | END 2022-01-04 11:56 | disposition home or self-care (01) | LOC: HO.BBR 11:55 | PROVIDERS: PCP Hospitalist; Visit Provider Hospitalist | DX: Z13.89 Encounter for screening for other disorder (principal) | CPT/HCPCS: 86850; 86900; 86901; 86923 ==

== ENCOUNTER 2022-01-05 10:25 | Outpatient (REF) | payer MEDICARE, MEDICAID, SELFPAY | END 2022-01-05 10:26 | disposition home or self-care (01) | LOC: HO.MDS 10:25 | PROVIDERS: Visit Provider Hospitalist | DX: D64.9 Anemia, unspecified (principal) | CPT/HCPCS: 36430; 86850; 86900; 86901; 86923; 96374; J1940; P9016 ==

== ENCOUNTER 2022-01-15 13:16 | Inpatient (IN) | payer MEDICARE, MEDICAID, SELFPAY ==
[2022-01-15 13:28] VITALS: BP 133/70; BP 138/67; PULSE 103; PULSE 88; RESP 20; TEMP 36.7; O2SAT 96; O2SAT 98; BMI 32.0
[2022-01-15 13:35] VITALS: BP 133/70; PULSE 99; RESP 19; TEMP 36.7; O2SAT 97
--- NOTE | 2022-01-15 14:20 | ED_ITS ---
HPI - Recheck/Abnormal Lab/Rx General Chief Complaint: Recheck/Abnormal Lab/Rx Stated Complaint: Abnormal labs Time Seen by Provider: 01/15/22 13:58 Source: patient Mode of arrival: ambulatory Limitations: no limitations History of Present Illness HPI narrative: 81-year-old male sent here from [facility] for a recent hemoglobin of 7.6, after having a blood transfusion 2 weeks ago. Patient is demented, I called [facility] and talked to a nurse there. She stated patient was transfused as an outpatient 2 weeks ago here at [place]. States he is otherwise at his baseline status, no recent cough, UTI, fevers Pt on Apixiban Related Data Home Medications Medication Instructions Recorded Confirmed amlodipine 2.5 mg tablet 2.5 mg PO DAILY 10/13/20 01/15/22 aripiprazole 2 mg tablet 1 mg PO DAILY tab 10/13/20 01/15/22 atenolol 50 mg tablet 50 mg PO BID tab 10/13/20 01/15/22 carbamazepine 300 mg 600 mg PO BID cap 10/13/20 10/19/21 capsule,extended release [id number] dulaglutide 1.5 mg/0.5 mL 1.5 mg SUBCUT SA 10/13/20 01/15/22 subcutaneous pen injector fenofibrate nanocrystallized 145 145 mg PO DAILY 10/13/20 01/15/22 mg tablet levothyroxine 50 mcg tablet 50 mcg PO DAILY@0600 10/13/20 01/15/22 lithium carbonate 450 mg 450 mg PO BEDTIME 10/13/20 01/15/22 tablet,extended release metformin 1,000 mg tablet 1,000 mg PO BID 10/13/20 10/19/21 risperidone 0.25 mg tablet 0.125 mg PO DAILY tab 10/13/20 01/15/22 simvastatin 10 mg tablet 10 mg PO BEDTIME 10/13/20 01/15/22 terazosin 2 mg capsule 2 mg PO BEDTIME 10/13/20 01/15/22 multivitamin 1 tab PO DAILY 12/31/20 01/15/22 polyvinyl alcohol 1.4 % eye drops 1 drp OPHTHALMIC (EYE) BID 12/31/20 01/15/22 (Artificial Tears (polyvinyl alcohol)) apixaban 2.5 mg tablet (Eliquis) 2.5 mg PO BID 04/13/21 10/19/21 ferrous sulfate 325 mg (65 mg 325 mg PO DAILY 10/19/21 01/15/22 iron) tablet ascorbic acid (vitamin C) 500 mg 500 mg PO DAILY 01/15/22 01/15/22 tablet insulin detemir U-100 100 unit/mL 10 unit SUBCUT DAILY@1100 01/15/22 01/15/22 (3 mL) subcutaneous pen (Levemir FlexTouch U-100 Insulin) Previous Rx's Medication Instructions Recorded hydrocortisone 2.5 % topical cream 1 appl TN BEDTIME 5 Days #30 g 01/03/21 with perineal applicator (Proctozone-HC) Allergies Allergy/AdvReac Type Severity Reaction Status Date / Time No Known Allergies Allergy Verified 10/19/21 13:40 [No Known Allergies*] Review of Systems Review of Systems: Severe dementia limits review of systems Yes Unobtainable due to mental status PMFSH Past Medical History Medical History Acute GI bleeding Diabetes Essential hypertension Hypothyroidism PAF (paroxysmal atrial fibrillation) Psychiatric diagnosis Wheezy Surgical History History of permanent cardiac pacemaker placement (~03/2015) Family History Family History Father No problems noted. Mother No problems noted. Social History Social History Household Members: Other Housing: Group Home Do you presently have visiting nurse or other home services: No Unable to assess alcohol history related to: Refusing to respond Patient Tobacco Use Status: Never used Tobacco Advance Directives: No Advance Directives Information Provided: No service: Yes Current occupational status: disabled Physical Exam Vital Signs: Vital Signs: Last Vital Signs Temp 98.1 F 01/15/22 16:07 Pulse 62 01/15/22 16:07 Resp 22 H 01/15/22 16:07 BP 146/69 H 01/15/22 16:07 Pulse Ox 99 01/15/22 16:07 BMI result Body Mass Index 32.0 Const: General: cooperative, no acute distress, alert and awake Nutritional Appearance: obese Orientation/consciousness: oriented to person Limitations: other limitations (dementia) HEENT: Head: Yes normal to inspection, Yes normocephalic and Yes atraumatic Ears: hearing grossly normal bilaterally, external ears normal, TM's normal bilaterally and EAC's normal General nose exam: Normal external nose present Face and sinus: Yes normal facial exam and Yes sinuses nontender Mouth: Normal oral and palatal mucosa present Throat: Yes posterior oropharynx normal Eyes: Conjunctivae: conjunctivae normal Pupils: Equal, round and reactive pupils present EOM: EOMs intact bilaterally Neck: Neck: Yes full ROM, Yes no lymphadenopathy and Yes supple Resp: Effort & Inspection: normal respiratory effort and able to speak in complete sentences Auscultation: clear to auscultation bilaterally, no crackles, no rales, no rhonchi and no wheezes Cardio: Rate: regular rate Rhythm: regular rhythm Heart sounds: S1 normal heart sound present and S2 normal heart sound present GI: Inspection: Yes Abdominal panniculus present and Yes obesity Palpation (GI): Soft to palpation, nontender, no guarding and not rigid Percussion: Yes normal to percussion Auscultation: normal bowel sounds Rectal Exam - Male: Yes visual inspection normal, Yes normal sphincter tone, No External hemorrhoid(s) present and No Internal hemorrhoid(s) present Skin: General skin exam: no rashes or lesions noted Neuro: General: oriented to person, tone normal and moves all extremities Cranial nerves: Yes Equal, round and reactive pupils present Extrem: General: Yes normal to inspection and Yes full ROM Psych: Appearance: grossly normal Affect: normal affect Attitude: cooperative Thought process: Normal thought process present Course Course Course Narrative: 81-year-old male who is anti-coagulated with a history of dementia, atrial fibrillation on Eliquis, GI bleed, anemia, UTI, diabetes, hypertension, hyperlipidemia, pacemaker, presents for a hemoglobin of 7.6. Transfusion done in clinic on 01/05/2022, I do not have those notes. Patient was admitted 1 year ago for blood transfusion, was found to have a GI bleed, EGD was normal, there was a large external hemorrhoid. Per discharge no te in January 2021, hospitalist stated that patient most likely had anemia of chronic disease due to chronic kidney disease and chronic blood loss due to external hemorrhoids. On exam, patient is pleasantly demented, will cooperate with my exam, rectal exam shows no gross blood or melena. No hemorrhoids visualized. Abdomen soft nontender. Lungs clear. Vitals are stable. Patient afebrile. Today patient's H&H is 8.2 in 27.7. On 01/02/2021 H&H was 8.2 and 29, I do not have more current labs. INR 1.2, creatinine 1.57. Patient is fecal occult blood positive Reevaluation(s) Reevaluation #1: discussed with Dr Adair, will call [facility] [place] [facility] for recent H&H Pt got one unit of blood, it looks like patient is at his baseline Spoke to nurse at [facility], patient's H&H today at the facility was 7.6 and 25.9. On January 04 patient had a positive guaiac. On December 31 patient's H&H was 7.1 and 24.7. January 08 patient had an H&H of 8.5 and 28.6. Again today, patient's H&H is 8.2 and 29 Patient admitted to hospitalist service for GI bleed MDM - Recheck/Abnormal Lab/Rx Lab Data Result diagrams: 01/15/22 14:28 01/15/22 14:28 Labs: Lab Results 01/15/22 01/15/22 01/15/22 Range/Units 14:28 14:28 14:28 WBC 6.0 (4.8-10.8) X10*3/uL RBC 3.00 L (4.60-5.80) X10*6/uL Hgb 8.2 L (14.0-18.0) g/dl Hct 27.7 L (42.0-52.0) % MCV 92.3 (80.0-98.0) fL MCH 27.3 (27.0-33.0) pg MCHC 29.6 L (31.0-36.0) g/dl RDW 14.6 (11.0-16.0) % Plt Count 290 (160-400) X10*3/uL MPV 8.7 L (9.4-12.4) fL Immature Gran % (Auto) 0.5 H (0.0-0.4) % Neut % (Auto) 60.0 (45-73) % Lymph % (Auto) 25.0 (20-40) % [place] % (Auto) 7.0 (2-11) % Eos % (Auto) 7.0 H (0-4) % Baso % (Auto) 0.5 (0-2) % Lymph # (Auto) 1.5 (1.2-4.9) X10*3/uL [place] # (Auto) 0.4 (0.1-1.2) X10*3/uL Eos # (Auto) 0.4 (0.0-0.4) X10*3/uL Baso # (Auto) 0.0 (0.0-0.2) X10*3/uL Abs Immat Gran (auto) 0.03 (0.00-0.03) X10*3/uL Absolute Neuts (auto) 3.6 (2.0-8.3) x10*3/uL Absolute Nucleated RBC 0.000 (0.0-0.012) X10*3/uL Nucleated RBC % (auto) 0.0 (0.0-0.2) /100WBC PT 13.2 H (9.9-13.0) SEC INR 1.2 H (0.9-1.1) APTT 45.6 H (24.1-38.0) SEC Sodium 141 (135-145) mmol/L Potassium 4.5 D (3.3-5.1) mmol/L Chloride 116 H (96-108) mmol/L Carbon Dioxide 20 L (22-29) mmol/L Anion Gap 10 L (12-20) BUN 28 H (9-16) mg/dL Creatinine 1.57 H (0.5-1.4) mg/dL Estim Creat Clear Calc 39.3 Estimated GFR 43 Random Glucose 119 H (60-115) mg/dL Calcium 9.0 D (8.4-10.2) mg/dL Total Bilirubin < 0.2 (0.0-1.0) mg/dL AST 12 (5-37) U/L ALT 14 (0-40) U/L Alkaline Phosphatase 34 L (39-117) U/L Total Protein 5.9 L (6.5-8.0) g/dL Albumin 3.4 L (3.5-5.0) g/dL Stool Occult Blood (NEGATIVE) COVID-19 ([place]) (Negative) COVID-19 [facility] Blood Type Antibody Screen 01/15/22 01/15/22 01/15/22 Range/Units 14:28 14:29 16:11 WBC (4.8-10.8) X10*3/uL RBC (4.60-5.80) X10*6/uL Hgb (14.0-18.0) g/dl Hct (42.0-52.0) % MCV (80.0-98.0) fL MCH (27.0-33.0) pg MCHC (31.0-36.0) g/dl RDW (11.0-16.0) % Plt Count (160-400) X10*3/uL MPV (9.4-12.4) fL Immature Gran % (Auto) (0.0-0.4) % Neut % (Auto) (45-73) % Lymph % (Auto) (20-40) % [place] % (Auto) (2-11) % Eos % (Auto) (0-4) % Baso % (Auto) (0-2) % Lymph # (Auto) (1.2-4.9) X10*3/uL [place] # (Auto) (0.1-1.2) X10*3/uL Eos # (Auto) (0.0-0.4) X10*3/uL Baso # (Auto) (0.0-0.2) X10*3/uL Abs Immat Gran (auto) (0.00-0.03) X10*3/uL Absolute Neuts (auto) (2.0-8.3) x10*3/uL Absolute Nucleated RBC (0.0-0.012) X10*3/uL Nucleated RBC % (auto) (0.0-0.2) /100WBC PT (9.9-13.0) SEC INR (0.9-1.1) APTT (24.1-38.0) SEC Sodium (135-145) mmol/L Potassium (3.3-5.1) mmol/L Chloride (96-108) mmol/L Carbon Dioxide (22-29) mmol/L Anion Gap (12-20) BUN (9-16) mg/dL Creatinine (0.5-1.4) mg/dL Estim Creat Clear Calc Estimated GFR Random Glucose (60-115) mg/dL Calcium (8.4-10.2) mg/dL Total Bilirubin (0.0-1.0) mg/dL AST (5-37) U/L ALT (0-40) U/L Alkaline Phosphatase (39-117) U/L Total Protein (6.5-8.0) g/dL Albumin (3.5-5.0) g/dL Stool Occult Blood POSITIVE (NEGATIVE) COVID-19 ([place]) Negative (Negative) COVID-19 Clin Com See Note Blood Type A Positive Antibody Screen NEGATIVE Discharge Plan Discharge Clinical Impression: Acute GI bleeding Patient Disposition: Admitted As Inpatient
[2022-01-15 14:36] LABS: MANUAL DIFF FLAG NO
[2022-01-15 14:38] LABS: Basophils Percent Auto 0.5 % (0-2); Eosinophils Absolute Auto 0.4 X10*3/uL (0.0-0.4); Hematocrit 27.7 % (42.0-52.0); Hemoglobin 8.2 g/dl (14.0-18.0); Imm Gran Abs Auto 0.03 X10*3/uL (0.00-0.03); Imm Gran Pct Auto 0.5 % (0.0-0.4); Lymphocytes Absolute Auto 1.5 X10*3/uL (1.2-4.9); Mean Corpuscular HGB Conc 29.6 g/dl (31.0-36.0); Mean Corpuscular Hemoglobin 27.3 pg (27.0-33.0); Mean Corpuscular Volume 92.3 fL (80.0-98.0); Mean Platelet Volume 8.7 fL (9.4-12.4); Monocytes Absolute Auto 0.4 X10*3/uL (0.1-1.2); Neutrophils Absolute Auto 3.6 x10*3/uL (2.0-8.3); Platelet Count 290 X10*3/uL (160-400); Red Cell Distribution Width 14.6 % (11.0-16.0)
[2022-01-15 14:39] LABS: OBS Int Ctl Valid YES; OBS1 POSITIVE (NEGATIVE)
[2022-01-15 14:45] LABS: INTERNATIONAL NORM RATIO 1.2 (0.9-1.1); Prothrombin Time 13.2 SEC (9.9-13.0)
[2022-01-15 14:47] LABS: Partial Thromboplastin Time 45.6 SEC (24.1-38.0)
[2022-01-15 14:57] LABS: Alanine Aminotransferase 14 U/L (0-40); Albumin Level 3.4 g/dL (3.5-5.0); Alkaline Phosphatase 34 U/L (39-117); Anion Gap 10 (12-20); Aspartate Amino Transferase 12 U/L (5-37); Bilirubin Total < 0.2 mg/dL (0.0-1.0); Blood Urea Nitrogen 28 mg/dL (9-16); Carbon Dioxide 20 mmol/L (22-29); Chloride 116 mmol/L (96-108); Creatinine Clr Calc Pharmacy 39.3; Estimated Glomerular Filt Rate 43; Glucose Random 119 mg/dL (60-115); Potassium 4.5 mmol/L (3.3-5.1); Sodium 141 mmol/L (135-145); Total Protein 5.9 g/dL (6.5-8.0)
[2022-01-15 16:07] VITALS: BP 146/69; PULSE 62; RESP 22; TEMP 36.7; O2SAT 99
--- NOTE | 2022-01-15 16:27 | P.HPHOSP_ITS ---
History of Present Illness Date of Service: 01/15/22 Chief Complaint: anemia History obtained from ED and SNF due to pt's mental status. 81yo M with dementia + bipolar disease, AF s/p PPM and anticoagulated on apixa ban, HTN, HLD, CKD3, hypothyroidism, and GERD who is a long-term resident of [facility]. He was sent in today due to anemia. Hb on 12/31/21 was 7.1. FOBT was positive on 01/04/22. He was transfused 1u pRBCs 01/05/22 and Hb was 8.5 on 01/08/22. Apixaban was stopped on 01/11/22. Repeat Hb on 01/15/22 was 7.6, so the patient was sent in. One year ago, the patient was admitted here 12/30-01/03/21 with anemia with Hb of 6.2. He was guaiac-positive then. He was transfused 2 units of packed red blood cells. He underwent EGD that was normal/ rectal exam showed external hemorrhoids. Colonoscopy was considered but the pt refused enemas and bowel prep. Here in the ED, Hb is 8.2. Pt is noted to have brown FOBT+ stool. SCr 1.57 which is around his baseline. Review of Systems Review of Systems: Yes Unobtainable due to mental status PMFSH Medical History Acute GI bleeding Diabetes Essential hypertension Hypothyroidism PAF (paroxysmal atrial fibrillation) Psychiatric diagnosis Wheezy Family History Father No problems noted. Mother No problems noted. Surgical History History of permanent cardiac pacemaker placement (~03/2015) Social History Household Members: Other Housing: Custodial Do you presently have visiting nurse or other home services: No Unable to assess alcohol history related to: Refusing to respond Patient Tobacco Use Status: Never used Tobacco Advance Directives: No Advance Directives Information Provided: No service: Yes Current occupational status: disabled Meds Allergies Allergy/AdvReac Type Severity Reaction Status Date / Time No Known Allergies Allergy Verified 10/19/21 13:40 [No Known Allergies*] Active Medications: Current Medications Dextrose (Dextrose 50 % 25 Gm/50 Ml Syringe) 25 gm IVPUSH Q15M PRN; Protocol PRN Reason: per Hypoglycemia Standing Ord. Glucose (Glucose Gel 15 Gm Gel..Gram.) 15 gm PO Q15M PRN; Protocol PRN Reason: per Hypoglycemia Standing Ord. Insulin Human Lispro (Insulin Lispro 100 Unit/Ml 3 Ml Vial) [facility]; Protocol Pharmacy Consult (Consult Rx Perform Med Rec) 1 each MISCELLANE STAT STA Stop: 01/15/22 15:53 Home Medications Medication Instructions Recorded Confirmed Last Taken Type amlodipine 2.5 mg tablet 2.5 mg PO DAILY 10/13/20 01/15/22 01/15/22 History aripiprazole 2 mg tablet 1 mg PO DAILY tab 10/13/20 01/15/22 01/15/22 History atenolol 50 mg tablet 50 mg PO BID tab 10/13/20 10/19/21 12/30/20 09:00 History carbamazepine 300 mg 600 mg PO BID cap 10/13/20 10/19/21 12/30/20 09:00 History capsule,extended release [id number] dulaglutide 1.5 mg/0.5 mL 1.5 mg SUBCUT SA 10/13/20 10/19/21 12/27/20 History subcutaneous pen injector fenofibrate nanocrystallized 145 145 mg PO DAILY 10/13/20 01/15/22 01/15/22 History mg tablet levothyroxine 50 mcg tablet 50 mcg PO DAILY@0600 10/13/20 01/15/22 01/15/22 History lithium carbonate 450 mg 450 mg PO BEDTIME 10/13/20 01/15/22 01/14/22 History tablet,extended release metformin 1,000 mg tablet 1,000 mg PO BID 10/13/20 10/19/21 12/30/20 09:00 History risperidone 0.25 mg tablet 0.125 mg PO DAILY tab 10/13/20 01/15/22 01/15/22 H istory simvastatin 10 mg tablet 10 mg PO BEDTIME 10/13/20 01/15/22 01/14/22 History terazosin 2 mg capsule 2 mg PO BEDTIME 02/04/2510/19/21 12/30/20 17:00 History multivitamin 1 tab PO DAILY 12/31/20 01/15/22 01/15/22 History polyvinyl alcohol 1.4 % eye drops 1 drp OPHTHALMIC (EYE) BID 12/31/20 10/19/21 12/30/20 09:00 History (Artificial Tears (polyvinyl alcohol)) ferrous sulfate 325 mg (65 mg 325 mg PO DAILY 10/19/21 01/15/22 01/15/22 History iron) tablet ascorbic acid (vitamin C) 500 mg 500 mg PO DAILY 01/15/22 01/15/22 01/15/22 History tablet insulin detemir U-100 100 unit/mL 10 unit SUBCUT DAILY@1100 01/15/22 01/15/22 01/15/22 History (3 mL) subcutaneous pen (Levemir FlexTouch U-100 Insulin) Physical Exam Vital Signs and Narrative: Vital Signs: Last Vital Signs Temp 98.1 F 01/15/22 16:07 Pulse 62 01/15/22 16:07 Resp 22 H 01/15/22 16:07 BP 146/69 H 01/15/22 16:07 Pulse Ox 99 01/15/22 16:07 BMI result Body Mass Index 32.0 Gen: in no acute distress HEENT: sclera anicteric, moist mucus membranes Neck: supple Lungs: clear to auscultation bilaterally Heart: regular rate and rhythm, no murmurs Abd: soft, non-tender, non-distended Ext: no edema Skin: warm/well-perfused Neuro: alert, disoriented, nonverbal Psych: impaired insight Results Labs CBC and Chem 7: 01/15/22 14:28 01/15/22 14:28 Labs: Laboratory Results - last 24 hr 01/15/22 01/15/22 01/15/22 14:28 14:28 14:28 MCV 92.3 MCH 27.3 MCHC 29.6 L RDW 14.6 Plt Count 290 MPV 8.7 L Immature Gran % (Auto) 0.5 H Neut % (Auto) 60.0 Lymph % (Auto) 25.0 [place] % (Auto) 7.0 Eos % (Auto) 7.0 H Baso % (Auto) 0.5 Lymph # (Auto) 1.5 [place] # (Auto) 0.4 Eos # (Auto) 0.4 Baso # (Auto) 0.0 Abs Immat Gran (auto) 0.03 Absolute Neuts (auto) 3.6 Absolute Nucleated RBC 0.000 Nucleated RBC % (auto) 0.0 PT 13.2 H INR 1.2 H APTT 45.6 H Anion Gap 10 L Estim Creat Clear Calc 39.3 Estimated GFR 43 Random Glucose 119 H Calcium 9.0 D Total Bilirubin < 0.2 AST 12 ALT 14 Alkaline Phosphatase 34 L Total Protein 5.9 L Albumin 3.4 L Stool Occult Blood Blood Type Antibody Screen 01/15/22 01/15/22 14:28 14:29 MCV MCH MCHC RDW Plt Count MPV Immature Gran % (Auto) Neut % (Auto) Lymph % (Auto) [place] % (Auto) Eos % (Auto) Baso % (Auto) Lymph # (Auto) [place] # (Auto) Eos # (Auto) Baso # (Auto) Abs Immat Gran (auto) Absolute Neuts (auto) Absolute Nucleated RBC Nucleated RBC % (auto) PT INR APTT Anion Gap Estim Creat Clear Calc Estimated GFR Random Glucose Calcium Total Bilirubin AST ALT Alkaline Phosphatase Total Protein Albumin Stool Occult Blood POSITIVE Blood Type A Positive Antibody Screen NEGATIVE Assessment and Plan (1) Acute GI bleeding: Status: Acute Plan 81yo M with dementia + bipolar disease, AF s/p PPM and anticoagulated on apixaban, HTN, HLD, CKD3, hypothyroidism, and GERD who is a long-term resident of [facility]. and was sent in for FOBT+ anemia # anemia due to GI bleed - likely lower GI bleed. admit to [facility], monitor H+H, NPO, consult GI, and hold apixaban # AF - hold AC due to GI bleeding # HTN - amlodipine, atenolol # HLD - statin # DM2 - correction-dose lispro # hypothyroidism - LT4 # bipolar disorder - aripiprazole, risperidone, lithium, carbamazepine # VTE ppx - SCDs, hold apixaban # code - FULL per [facility] I anticipate that the patient will stay at least 2 midnights in hospital due to the above reasons. It is not reasonable or safe to care for them in a less acute setting. Quality Stroke Does the patient have a stroke diagnosis?: No VTE Prior VTE?: No VTE Risk Level:: Medical - moderate - high VTE Device Contraindication: N/A - Device Ordered VTE Drug Contraindication: Treatment Not Indicated
[2022-01-15 16:40] LABS: COVID-19 Test Negative (Negative); IDNOW Serial# 16C4AD1C
--- NOTE | 2022-01-15 16:43 | PC.NURSE ---
NO ACTIVE BLEEDING NOTED IN ED. HE IS GUIAC + PACED ON MONITOR. IV ACCESS PATENT. HOSPITALIST WAS HERE FOR ADMISSION
--- NOTE | 2022-01-15 16:44 | P.CNGI_ITS ---
History of Present Illness Data of Consult Service Date: 01/15/22 Requesting physician: Celeste Thomas Primary Care Provider: Sterling Be DO HPI Reason for consult: Acute on chronic anemia, heme positive stools 81 YM with dementia, hypertension, hyperlipidemia, diabetes, chronic kidney disease, AFib on Eliquis, hypothyroidism, GERD, history of pacemaker bipolar, psychiatric disease. Pt was sent to [facility] from [facility] for a hemoglobin of 7.6, Pt had a blood transfusion 2 weeks ago. A nurse from [facility] reported that patient had a blood transfusion 2 weeks ago at [facility] States he is otherwise at his baseline status, no recent cough, UTI, fevers Patient is a poor historian. Most of the history obtained from the records and the ER staff. Patient's guardian is Rebel Sol- [phone].Has? Reportedly patient did not have any chest pain, palpitations, lightheadedness or dizziness.? Denies any active signs of bleeding. Per ER team patient rectal exam showed brown guaiac positive stool.? Lab showed hemoglobin of 6.1.? Patient's prior hemoglobin was 9.4 on 08/31/18. Patient's current mental status is at his baseline. Patient denies any fever, chills ,cough.? Denies any abdominal discomfort. Pt was hospitalized at [facility] in 12/2020: Acute on chronic blood-loss anemia, patient noted to have no active bleeding, he received 2 units of packed RBC and hemoglobin improved and remained stable, Patient underwent upper endoscopy on 01/01 that showed normal stomach mucosa, no esophagitis ,no blood seen in the upper GI tract, rectal examination showed moderate size external hemorrhoids bluish tinge,there was no rectal mass noted. Abdominal CT scan showed no abnormality, patient was treated with hemorrhoidal cream and high-fiber diet since no active bleeding found GI recommended to resume Eliquis Recommend to follow CBC in 1 week and avoid constipation and straining. Review of Systems Review of Systems: Yes Unobtainable due to mental status Neurologic: Reports confusion Psychiatric: Psychiatric: Reports confusion PMFSH Past Medical History Medical History Acute GI bleeding Diabetes Essential hypertension Hypothyroidism PAF (paroxysmal atrial fibrillation) Psychiatric diagnosis Wheezy Family History Family History Father No problems noted. Mother No problems noted. Surgical History Surgical History History of permanent cardiac pacemaker placement (~03/2015) Social History Social History Household Members: Other Housing: Custodial Do you presently have visiting nurse or other home services: No Unable to assess alcohol history related to: Refusing to respond Patient Tobacco Use Status: Never used Tobacco service: Yes Current occupational status: [employer] Meds Allergies Allergy/AdvReac Type Severity Reaction Status Date / Time No Known Allergies Allergy Verified 10/19/21 13:40 [No Known Allergies*] Active Medications: Current Medications Acetaminophen (Acetaminophen 325 Mg Tablet) 650 mg PO Q6H PRN PRN Reason: Pain, Mild (Pain Scale 1-3) Amlodipine Besylate (Amlodipine Besylate 2.5 Mg Tablet) 2.5 mg PO DAILY LISA; Protocol Aripiprazole (Aripiprazole 2 Mg Tablet) 1 mg PO DAILY LISA Dextrose (Dextrose 50 % 25 Gm/50 Ml Syringe) 25 gm IVPUSH Q15M PRN; Protocol PRN Reason: per Hypoglycemia Standing Ord. Glucose (Glucose Gel 15 Gm Gel..Gram.) 15 gm PO Q15M PRN; Protocol PRN Reason: per Hypoglycemia Standing Ord. Insulin Human Lispro (Insulin Lispro 100 Unit/Ml 3 Ml Vial) 0 unit SUBCUT QIDACHS LISA; Protocol Levothyroxine Sodium (Levothyroxine Sodium 50 Mcg Tablet) 50 mcg PO DAILY@0600 LISA [place] Carbonate ([place] Carbonate Er 450 Mg Tablet.Er) 450 mg PO BEDTIME LISA Multivitamins/Vitamin C (Multivitamin Tablet) 1 tab PO DAILY LISA Non-Formulary Medication (Fenofibrate Nanocrystallized) 145 mg PO DAILY LISA Non-Formulary Medication (Ferrous Sulfate) 325 mg PO DAILY LISA Non-Formulary Medication (Simvastatin) 10 mg PO BEDTIME LISA Non-Formulary Medication (Terazosin) 2 mg PO BEDTIME LISA Ondansetron HCl (Ondansetron Hcl 4 Mg/2 Ml Vial) 4 mg IVPUSH Q8H PRN PRN Reason: Nausea and Vomiting Pharmacy Consult (Consult Rx Perform Med Rec) 1 each MISCELLANE STAT STA Stop: 01/15/22 15:53 Pharmacy Consult (Consult Rx Perform Med Rec) 1 each MISCELLANE ONCE PRN PRN Reason: Consult order Risperidone (Risperidone 0.25 Mg Tablet) 0.125 mg PO DAILY [facility] Sodium Chloride (0.9 % Sodium Chloride Flush 3 Ml Syringe) 3 ml IVFLUSH QSHIFT [facility] Home Medications Medication Instructions Recorded Confirmed Last Taken Type amlodipine 2.5 mg tablet 2.5 mg PO DAILY 10/13/20 01/15/22 01/15/22 History aripiprazole 2 mg tablet 1 mg PO DAILY tab 10/13/20 01/15/22 01/15/22 History atenolol 50 mg tablet 50 mg PO BID tab 10/13/20 01/15/22 01/15/22 History carbamazepine 300 mg 600 mg PO BID cap 10/13/20 01/15/22 01/15/22 History capsule,extended release [id number] dulaglutide 1.5 mg/0.5 mL 1.5 mg SUBCUT SA 10/13/20 01/15/22 01/09/22 History subcutaneous pen injector fenofibrate nanocrystallized 145 145 mg PO DAILY 10/13/20 01/15/22 01/15/22 Hist ory mg tablet levothyroxine 50 mcg tablet 50 mcg PO DAILY@0600 10/13/20 01/15/22 01/15/22 Hi story lithium carbonate 450 mg 450 mg PO BEDTIME 10/13/20 01/15/22 01/14/22 History tablet,extended release metformin 1,000 mg tablet 1,000 mg PO BID 10/13/20 01/15/22 01/15/22 History risperidone 0.25 mg tablet 0.125 mg PO DAILY tab 10/13/20 01/15/22 01/15/22 History simvastatin 10 mg tablet 10 mg PO BEDTIME 10/13/20 01/15/22 01/14/22 History terazosin 2 mg capsule 2 mg PO BEDTIME 10/13/20 01/15/22 01/14/22 History multivitamin 1 tab PO DAILY 12/31/20 01/15/22 01/15/22 History polyvinyl alcohol 1.4 % eye drops 1 drp OPHTHALMIC (EYE) BID 12/31/20 01/15/22 01/15/22 History (Artificial Tears (polyvinyl alcohol)) ferrous sulfate 325 mg (65 mg 325 mg PO DAILY 10/19/21 01/15/22 01/15/22 History iron) tablet ascorbic acid (vitamin C) 500 mg 500 mg PO DAILY 01/15/22 01/15/22 01/15/22 History tablet insulin detemir U-100 100 unit/mL 10 unit SUBCUT DAILY@1100 01/15/22 01/15/22 01/15/22 History (3 mL) subcutaneous pen (Levemir FlexTouch U-100 Insulin) Physical Exam Vital Signs: Vital Signs: Last Vital Signs Temp 98.1 F 01/15/22 16:07 Pulse 62 01/15/22 16:07 Resp 22 H 01/15/22 16:07 BP 146/69 H 01/15/22 16:07 Pulse Ox 99 01/15/22 16:07 BMI result Body Mass Index 32.0 Const: General: no acute distress and confusion Nutritional Appearance: obese Orientation/consciousness: patient oriented x3 and confusion Limitations: behavioral limitations HEENT: Head: Yes normal to inspection Ears: hearing grossly normal bilaterally Mouth: Normal oral and palatal mucosa present Eyes: Sclerae: sclerae normal Pupils: Equal, round and reactive pupils present Neck: Neck: Yes normal visual inspection Chest: Chest palpation & inspection: normal inspection of the chest Resp: Effort & Inspection: normal respiratory effort Auscultation: clear to auscultation bilaterally Cardio: Palpation: normal PMI Rate: regular rate Rhythm: regular rhythm Heart sounds: S1 normal heart sound present, S2 normal heart sound present and no murmurs GI: Palpation (GI): Soft to palpation, nontender and No hepatosplenomegaly present Auscultation: normal bowel sounds Rectal Exam - Male: Yes deferred Skin: General skin exam: no rashes or lesions noted Neuro: General: patient oriented x3, gait normal, moves all extremities and confusion Cranial nerves: Yes Equal, round and reactive pupils present Psych: Appearance: grossly normal Mental Status: mental status grossly normal Results Labs CBC & Chem 7: 01/17/22 06:36 01/17/22 06:36 Labs: Short CBC 01/15/22 Range/Units 14:28 WBC 6.0 (4.8-10.8) X10*3/uL Hgb 8.2 L (14.0-18.0) g/dl Hct 27.7 L (42.0-52.0) % Plt Count 290 (160-400) X10*3/uL BMP 01/15/22 14:28 Sodium 141 Potassium 4.5 D Chloride 116 H Carbon Dioxide 20 L BUN 28 H Creatinine 1.57 H Calcium 9.0 D Liver Function 01/15/22 Range/Units 14:28 Total Bilirubin < 0.2 (0.0-1.0) mg/dL AST 12 (5-37) U/L ALT 14 (0-40) U/L Alkaline Phosphatase 34 L (39-117) U/L Albumin 3.4 L (3.5-5.0) g/dL Assessment and Plan (1) Anemia: Status: Acute (2) Heme positive stool: Status: Acute Plan 81 YM with dementia, hypertension, hyperlipidemia, diabetes, chronic kidney disease, AFib on Eliquis, hypothyroidism, GERD, history of pacemaker bipolar, psychiatric disease. Pt was sent to [facility] from [facility] for a hemoglobin of 8.2 & 27.7 (H & H was 8.2 & 29 on 01/02/22), Stool occult blood was positive in the ED. Iron studies last year were CW iron deficiency anemia. He had a blood transfusion as an outpt 2 weeks ago. Patient's guardian is Rebel Sol- [phone]. RECOMMENDATIONS: 1. Monitor CBC daily. 2. Hold Eliquis 3. Clear liquid diet on 01/17/22 and prep with Golytely. 4. Pt will be scheduled for a colonoscopy on 01/18/22 Procedures Date of Service Date of Service: 01/15/22
--- NOTE | 2022-01-15 16:50 | PHA.MEDREC ---
MED REC COMPLETE, NO ISSUES. PATIENT WAS ON ELIQUIS BUT PER [facility] NOTES THIS WAS DISCONTINUED ON January Pharmacy Consult ? Medication Reconciliation Pharmacy has completed the medication reconciliation.
[2022-01-15 16:58] VITALS: BP 133/59; PULSE 67; RESP 17; O2SAT 100
[2022-01-15 18:46] LABS: Glucose, Whole Blood 83 mg/dL (60-115)
--- NOTE | 2022-01-15 21:14 | MHC.CM.PN ---
CM met with admitted patient with bed assignment pending. Pt confused and unable to answer CM questions. Speech is at times garbled. Resident of [facility]. Has MOLST-full code, no dialysis. Has guardian-Rebel Sol ([phone]) (m-[phone]). Message left with guardian regarding IMM and pt admission. Contact number left. Will send IMM via certified mail. Per medical record, pt lives at [facility]. Has cardiac pacemaker. Unsure of medical equipment usage, but does not have a cane/walker with him. Pt is pleasant, but according to record, can be combative and verbally aggressive at times. Pt is Covid negative. No covid vaccination record on SNF chart. D/C plan: Return to [facility]. Return referral placed. Will need BLS transport for safety.
[2022-01-15 22:44] LABS: Glucose, Whole Blood 85 mg/dL (60-115)
[2022-01-15] MEDS: carBAMazepine ER 200 MG TAB.ER.12H 600 MG PO (22:45)
[2022-01-15] MEDS: Lithium Carbonate ER 450 MG TABLET.ER PO (22:45)
[2022-01-15] MEDS: Atorvastatin Calcium 10 MG TABLET PO (22:46)
[2022-01-15] MEDS: atenoloL 50 MG TABLET PO (22:46)
[2022-01-15] MEDS: Doxazosin Mesylate 2 MG TABLET PO (22:46)
[2022-01-16 00:30] VITALS: BP 153/65; PULSE 74; RESP 16; O2SAT 94
--- NOTE | 2022-01-16 03:10 | PC.NURSE ---
PATIENT WAS INCONTINENT OF URINE ,CARE WAS GIVEN ,BEGGING WAS CHANGE ,RN AWARE OF PATIENT BEING VERY COMBATIVE .
[2022-01-16 04:02] VITALS: PULSE 72; RESP 13; O2SAT 96
[2022-01-16] MEDS: Levothyroxine Sodium 50 MCG TABLET PO (06:17)
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
[2022-01-16 06:30] VITALS: BP 143/61; PULSE 69; RESP 18; O2SAT 94
[2022-01-16 07:09] LABS: Hematocrit 29.3 % (42.0-52.0); Hemoglobin 8.6 g/dl (14.0-18.0); Mean Corpuscular HGB Conc 29.4 g/dl (31.0-36.0); Mean Corpuscular Hemoglobin 27.4 pg (27.0-33.0); Mean Corpuscular Volume 93.3 fL (80.0-98.0); Platelet Count 331 X10*3/uL (160-400); Red Blood Count 3.14 X10*6/uL (4.60-5.80); Red Cell Distribution Width 14.5 % (11.0-16.0); White Blood Count 6.4 X10*3/uL (4.8-10.8)
[2022-01-16 07:42] LABS: Anion Gap 11 (12-20); Blood Urea Nitrogen 23 mg/dL (9-16); Calcium 9.1 mg/dL (8.4-10.2); Carbon Dioxide 19 mmol/L (22-29); Chloride 117 mmol/L (96-108); Creatinine Clr Calc Pharmacy 48.6; Estimated Glomerular Filt Rate 54; Glucose Random 93 mg/dL (60-115); Potassium 4.1 mmol/L (3.3-5.1); Sodium 143 mmol/L (135-145)
[2022-01-16 07:50] LABS: Glucose, Whole Blood 82 mg/dL (60-115)
[2022-01-16] MEDS: 0.9 % Sodium Chloride Flush 3 ML SYRINGE IVFLUSH ×2 (08:30→22:23)
[2022-01-16] MEDS: Ferrous Sulfate 324 MG TABLET.DR PO (09:20)
[2022-01-16] MEDS: amLODIPine Besylate 2.5 MG TABLET PO (09:20)
[2022-01-16] MEDS: Ascorbic Acid 500 MG TABLET PO (09:20)
[2022-01-16] MEDS: atenoloL 50 MG TABLET PO ×2 (09:20→21:25)
[2022-01-16] MEDS: Multivitamin TABLET 1 TAB PO (09:20)
[2022-01-16] MEDS: Fenofibrate 160 MG TABLET PO (09:36)
[2022-01-16] MEDS: ARIPiprazole 2 MG TABLET 1 MG PO (09:36)
[2022-01-16] MEDS: carBAMazepine ER 100 MG TAB.ER.12H 600 MG PO ×2 (09:36→21:15)
[2022-01-16] MEDS: risperiDONE 0.25 MG TABLET 0.125 MG PO (09:36)
--- NOTE | 2022-01-16 10:36 | PC.NURSE ---
pt resting in bed. excited about getting to eat breakfast today. verbal order from Dr. Thomas to change go-lytly start date from 01/16/22 to 01/17/22 to start with a clear liquid diet.
--- NOTE | 2022-01-16 12:12 | PC.NURSE ---
pt incontinent of stool and urine, refusing initially to get cleaned up. pt swearing at staff and threatening but did allow staff to clean him. full bed linens changed.
--- NOTE | 2022-01-16 12:20 | P.PNIM_ITS ---
Subjective Subjective Date of Service: 01/16/22 Interval History: Eager to eat. No abd pain. No hematochezia. ROS limited due to mental status. Review of Systems Review of Systems: Yes Unobtainable due to mental status Physical Exam Vital Signs: Vital Signs: Last Vital Signs Temp 98.1 F 01/15/22 16:07 Pulse 69 01/16/22 06:30 Resp 18 01/16/22 06:30 BP 143/61 H 01/16/22 06:30 Pulse Ox 94 01/16/22 06:30 BMI result Body Mass Index 32.0 Gen: in no acute distress HEENT: sclera anicteric, moist mucus membranes Neck: supple Lungs: clear to auscultation bilaterally Heart: regular rate and rhythm, no murmurs Abd: soft, non-tender, non-distended Ext: no edema Skin: warm/well-perfused Neuro: alert, disoriented, minimally verbal Psych: impaired insight Objective Data Active Medications Acetaminophen (Acetaminophen 325 Mg Tablet) 650 mg PO Q6H PRN PRN Reason: Pain, Mild (Pain Scale 1-3) Amlodipine Besylate (Amlodipine Besylate 2.5 Mg Tablet) 2.5 mg PO DAILY [facility]; Protocol Last Admin: 01/16/22 09:20 Dose: 2.5 mg Documented by: WILLY Aripiprazole (Aripiprazole 2 Mg Tablet) 1 mg PO DAILY [facility] Last Admin: 01/16/22 09:36 Dose: 1 mg Documented by: WILLY Artificial Tears (Artificial Tears 15 Ml Drops) 1 drop EYE-BOTH BID [facility] Last Admin: 01/16/22 09:22 Dose: Not Given Documented by: WILLY Non-Admin Reason: Med Not Available Ascorbic Acid (Ascorbic Acid 500 Mg Tablet) 500 mg PO DAILY [facility] Last Admin: 01/16/22 09:20 Dose: 500 mg Documented by: WILLY Atenolol (Atenolol 50 Mg Tablet) 50 mg PO BID [facility]; Protocol Last Admin: 01/16/22 09:20 Dose: 50 mg Documented by: WILLY Atorvastatin Calcium (Atorvastatin Calcium 10 Mg Tablet) 10 mg PO BEDTIME [facility] Last Admin: 01/15/22 22:46 Dose: 10 mg Documented by: KANWAL-LIZETH Carbamazepine (Carbamazepine Er 100 Mg Tab.Er.12h) 600 mg PO BID [facility] Last Admin: 01/16/22 09:36 Dose: 600 mg Documented by: WILLY Dextrose (Dextrose 50 % 25 Gm/50 Ml Syringe) 25 gm IVPUSH Q15M PRN; Protocol PRN Reason: per Hypoglycemia Standing Ord. Doxazosin Mesylate (Doxazosin Mesylate 2 Mg Tablet) 2 mg PO BEDTIME [facility] Last Admin: 01/15/22 22:46 Dose: 2 mg Documented by: LANDON Fenofibrate (Fenofibrate 160 Mg Tablet) 160 mg PO DAILY [facility] Last Admin: 01/16/22 09:36 Dose: 160 mg Documented by: WILLY Ferrous Sulfate (Ferrous Sulfate 324 Mg Tablet.Dr) 324 mg PO DAILY [facility] Last Admin: 01/16/22 09:20 Dose: 324 mg Documented by: WILLY Glucose (Glucose Gel 15 Gm Gel..Gram.) 15 gm PO Q15M PRN; Protocol PRN Reason: per Hypoglycemia Standing Ord. Insulin Human Lispro (Insulin Lispro 100 Unit/Ml 3 Ml Vial) 0 unit SUBCUT QIDACHS [facility]; Protocol Last Admin: 01/16/22 07:35 Dose: Not Given Documented by: WILLY Non-Admin Reason: No Insulin Coverage Levothyroxine Sodium (Levothyroxine Sodium 50 Mcg Tablet) 50 mcg PO DAILY@0600 [facility] Last Admin: 01/16/22 06:17 Dose: 50 mcg Documented by: STACIE [place] Carbonate ([place] Carbonate Er 450 Mg Tablet.Er) 450 mg PO BEDTIME [facility] Last Admin: 01/15/22 22:45 Dose: 450 mg Documented by: LANDON Multivitamins/Vitamin C (Multivitamin Tablet) 1 tab PO DAILY [facility] Last Admin: 01/16/22 09:20 Dose: 1 tab Documented by: WILLY Ondansetron HCl (Ondansetron Hcl 4 Mg/2 Ml Vial) 4 mg IVPUSH Q8H PRN PRN Reason: Nausea and Vomiting Pharmacy Consult (Consult Rx Perform Med Rec) 1 each MISCELLANE ONCE PRN PRN Reason: Consult order Polyethylene Glycol/Electrolytes (Peg 3350/Na Sulf,Bicarb,Cl/Kcl 4,000 Ml Soln.Recon) 4,000 ml PO ONCE ONE Stop: 01/17/22 15:16 Risperidone (Risperidone 0.25 Mg Tablet) 0.125 mg PO DAILY [facility] Last Admin: 01/16/22 09:36 Dose: 0.125 mg Documented by: WILLY Sodium Chloride (0.9 % Sodium Chloride Flush 3 Ml Syringe) 3 ml IVFLUSH QSHIFT [facility] Last Admin: 01/16/22 08:30 Dose: 3 ml Documented by: WILLY Labs CBC & Chem 7: 01/16/22 06:43 01/16/22 06:43 Labs: Laboratory Results - last 24 hr 01/15/22 01/15/22 01/15/22 14:28 14:28 14:28 MCV 92.3 MCH 27.3 MCHC 29.6 L RDW 14.6 Plt Count 290 MPV 8.7 L Immature Gran % (Auto) 0.5 H Neut % (Auto) 60.0 Lymph % (Auto) 25.0 [place] % (Auto) 7.0 Eos % (Auto) 7.0 H Baso % (Auto) 0.5 Lymph # (Auto) 1.5 [place] # (Auto) 0.4 Eos # (Auto) 0.4 Baso # (Auto) 0.0 Abs Immat Gran (auto) 0.03 Absolute Neuts (auto) 3.6 Absolute Nucleated RBC 0.000 Nucleated RBC % (auto) 0.0 PT 13.2 H INR 1.2 H APTT 45.6 H Anion Gap 10 L Estim Creat Clear Calc 39.3 Estimated GFR 43 POC Glucose Random Glucose 119 H Calcium 9.0 D Total Bilirubin < 0.2 AST 12 ALT 14 Alkaline Phosphatase 34 L Total Protein 5.9 L Albumin 3.4 L Stool Occult Blood COVID-19 ([facility]) COVID-19 Clin Com Blood Type Antibody Screen 01/15/22 01/15/22 01/15/22 14:28 14:29 16:11 MCV MCH MCHC RDW Plt Count MPV Immature Gran % (Auto) Neut % (Auto) Lymph % (Auto) [place] % (Auto) Eos % (Auto) Baso % (Auto) Lymph # (Auto) [place] # (Auto) Eos # (Auto) Baso # (Auto) Abs Immat Gran (auto) Absolute Neuts (auto) Absolute Nucleated RBC Nucleated RBC % (auto) PT INR APTT Anion Gap Estim Creat Clear Calc Estimated GFR POC Glucose Random Glucose Calcium Total Bilirubin AST ALT Alkaline Phosphatase Total Protein Albumin Stool Occult Blood POSITIVE COVID-19 ([facility]) Negative COVID-19 Clin Com See Note Blood Type A Positive Antibody Screen NEGATIVE 01/15/22 01/15/22 01/16/22 18:42 22:41 06:43 MCV 93.3 MCH 27.4 MCHC 29.4 L RDW 14.5 Plt Count 331 MPV 9.0 L Immature Gran % (Auto) Neut % (Auto) Lymph % (Auto) [place] % (Auto) Eos % (Auto) Baso % (Auto) Lymph # (Auto) [place] # (Auto) Eos # (Auto) Baso # (Auto) Abs Immat Gran (auto) Absolute Neuts (auto) Absolute Nucleated RBC 0.000 Nucleated RBC % (auto) 0.0 PT INR APTT Anion Gap Estim Creat Clear Calc Estimated GFR POC Glucose 83 85 Random Glucose Calcium Total Bilirubin AST ALT Alkaline Phosphatase Total Protein Albumin Stool Occult Blood COVID-19 ([facility]) COVID-19 [employer] Com Blood Type Antibody Screen 01/16/22 01/16/22 06:43 07:29 MCV MCH MCHC RDW Plt Count MPV Immature Gran % (Auto) Neut % (Auto) Lymph % (Auto) [place] % (Auto) Eos % (Auto) Baso % (Auto) Lymph # (Auto) [place] # (Auto) Eos # (Auto) Baso # (Auto) Abs Immat Gran (auto) Absolute Neuts (auto) Absolute Nucleated RBC Nucleated RBC % (auto) PT INR APTT Anion Gap 11 L Estim Creat Clear Calc 48.6 Estimated GFR 54 POC Glucose 82 Random Glucose 93 Calcium 9.1 Total Bilirubin AST ALT Alkaline Phosphatase Total Protein Albumin Stool Occult Blood COVID-19 ([facility]) COVID-19 Clin Com Blood Type Antibody Screen Assessment and Plan (1) Acute GI bleeding: Status: Acute (2) Heme positive stool: Status: Acute Plan hospital d#2 81yo M with dementia + bipolar disease, AF s/p PPM and anticoagulated on apixaban, HTN, HLD, CKD3, hypothyroidism, and GERD who is a long-term resident of [facility] and was sent in for FOBT+ anemia # anemia due to GI bleed - suspect lower GI bleed. GI consulted, plan GoLytely prep tomorrow then NPO for C-scope 01/18/22; hold apixaban; monitor CBC # AF - hold AC due to GI bleeding # HTN - amlodipine, atenolol # HLD - statin # DM2 - correction-dose lispro # hypothyroidism - LT4 # bipolar disorder - aripiprazole, risperidone, lithium, carbamazepine # VTE ppx - SCDs, hold apixaban In my clinical judgment, the patient requires continued hospitalization for the following reasons: GI bleeding, inpt C-scope eval Quality Stroke Does the patient have a stroke diagnosis?: No VTE Prior VTE?: No VTE Risk Level:: Medical - moderate - high VTE Device Contraindication: N/A - Device Ordered VTE Drug Contraindication: Treatment Not Indicated
[2022-01-16 14:28] LABS: Glucose, Whole Blood 115 mg/dL (60-115)
--- NOTE | 2022-01-16 14:58 | PC.NURSE ---
placed [place] cath on pt, he bacame irritable but allowed placement.
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
[2022-01-16 15:05] VITALS: BP 135/59; PULSE 74; RESP 16; TEMP 36.7; O2SAT 98
[2022-01-16 17:40] VITALS: BP 150/63; PULSE 82; RESP 18; TEMP 37.3; O2SAT 98
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
[2022-01-16] MEDS: Lithium Carbonate ER 450 MG TABLET.ER PO (21:17)
[2022-01-16] MEDS: Doxazosin Mesylate 2 MG TABLET PO (21:17)
[2022-01-16] MEDS: Atorvastatin Calcium 10 MG TABLET PO (21:17)
[2022-01-16 22:18] VITALS: BMI 30.4
[2022-01-16 22:37] LABS: Glucose, Whole Blood 106 mg/dL (60-115)
[2022-01-16 23:19] VITALS: BP 151/70; PULSE 62; RESP 17; TEMP 36.3; O2SAT 97
[2022-01-17 02:56] VITALS: BP 142/90; PULSE 65; RESP 18; TEMP 36.4; O2SAT 96
[2022-01-17] MEDS: Levothyroxine Sodium 50 MCG TABLET PO (05:24)
[2022-01-17 07:02] LABS: Hematocrit 31.4 % (42.0-52.0); Hemoglobin 9.3 g/dl (14.0-18.0); Mean Corpuscular HGB Conc 29.6 g/dl (31.0-36.0); Mean Corpuscular Hemoglobin 27.2 pg (27.0-33.0); Mean Corpuscular Volume 91.8 fL (80.0-98.0); Mean Platelet Volume 8.9 fL (9.4-12.4); Platelet Count 370 X10*3/uL (160-400); Red Blood Count 3.42 X10*6/uL (4.60-5.80); Red Cell Distribution Width 14.5 % (11.0-16.0); White Blood Count 6.5 X10*3/uL (4.8-10.8)
[2022-01-17 07:19] LABS: Anion Gap 10 (12-20); Blood Urea Nitrogen 22 mg/dL (9-16); Calcium 9.4 mg/dL (8.4-10.2); Carbon Dioxide 21 mmol/L (22-29); Chloride 115 mmol/L (96-108); Creatinine Clr Calc Pharmacy 46.4; Estimated Glomerular Filt Rate 53; Glucose Random 119 mg/dL (60-115); Sodium 142 mmol/L (135-145)
[2022-01-17 07:48] LABS: Glucose, Whole Blood 113 mg/dL (60-115)
[2022-01-17 08:00] VITALS: BP 188/71; PULSE 60; RESP 17; TEMP 36.6; O2SAT 97
[2022-01-17] MEDS: carBAMazepine ER 200 MG TAB.ER.12H 600 MG PO ×2 (10:00→20:57)
[2022-01-17] MEDS: Multivitamin TABLET 1 TAB PO (10:01)
[2022-01-17] MEDS: risperiDONE 0.25 MG TABLET 0.125 MG PO (10:01)
[2022-01-17] MEDS: Fenofibrate 160 MG TABLET PO (10:01)
[2022-01-17] MEDS: atenoloL 50 MG TABLET PO ×2 (10:02→20:57)
[2022-01-17] MEDS: Ferrous Sulfate 324 MG TABLET.DR PO (10:02)
[2022-01-17] MEDS: ARIPiprazole 2 MG TABLET 1 MG PO (10:02)
[2022-01-17] MEDS: amLODIPine Besylate 2.5 MG TABLET PO (10:02)
[2022-01-17] MEDS: 0.9 % Sodium Chloride Flush 3 ML SYRINGE IVFLUSH ×3 (10:03→20:58)
[2022-01-17] MEDS: Ascorbic Acid 500 MG TABLET PO (10:03)
[2022-01-17] MEDS: Artificial Tears 15 ML DROPS 1 DROP EYE-BOTH ×2 (10:03→20:58)
--- NOTE | 2022-01-17 11:24 | P.PNIM_ITS ---
Subjective Subjective Date of Service: 01/17/22 Interval History: No overt GI bleeding Hb improved No abd pain ROS limited by mental status Review of Systems Review of Systems: Yes Unobtainable due to mental status Physical Exam Vital Signs: Vital Signs: Last Vital Signs Temp 97.8 F 01/17/22 08:00 Pulse 60 01/17/22 08:00 Resp 17 01/17/22 08:00 BP 188/71 H 01/17/22 08:00 Pulse Ox 97 01/17/22 08:00 BMI result Body Mass Index 30.4 Gen: in no acute distress HEENT: sclera anicteric, moist mucus membranes Neck: supple Lungs: clear to auscultation bilaterally Heart: regular rate and rhythm, no murmurs Abd: soft, non-tender, non-distended Ext: no edema Skin: warm/well-perfused Neuro: alert, disoriented, minimally verbal Psych: impaired insight Objective Data Active Medications Acetaminophen (Acetaminophen 325 Mg Tablet) 650 mg PO Q6H PRN PRN Reason: Pain, Mild (Pain Scale 1-3) Amlodipine Besylate (Amlodipine Besylate 2.5 Mg Tablet) 2.5 mg PO DAILY [facility]; Protocol Last Admin: 01/17/22 10:02 Dose: 2.5 mg Documented by: JACKIE Aripiprazole (Aripiprazole 2 Mg Tablet) 1 mg PO DAILY [facility] Last Admin: 01/17/22 10:02 Dose: 1 mg Documented by: JACKIE Artificial Tears (Artificial Tears 15 Ml Drops) 1 drop EYE-BOTH BID [facility] Last Admin: 01/17/22 10:03 Dose: 1 drop Documented by: JACKIE Ascorbic Acid (Ascorbic Acid 500 Mg Tablet) 500 mg PO DAILY [facility] Last Admin: 01/17/22 10:03 Dose: 500 mg Documented by: JACKIE Atenolol (Atenolol 50 Mg Tablet) 50 mg PO BID [facility]; Protocol Last Admin: 01/17/22 10:02 Dose: 50 mg Documented by: JACKIE Atorvastatin Calcium (Atorvastatin Calcium 10 Mg Tablet) 10 mg PO BEDTIME [facility] Last Admin: 01/16/22 21:17 Dose: 10 mg Documented by: IRAIS Carbamazepine (Carbamazepine Er 200 Mg Tab.Er.12h) 600 mg PO BID [facility] Last Admin: 01/17/22 10:00 Dose: 600 mg Documented by: JACKIE Dextrose (Dextrose 50 % 25 Gm/50 Ml Syringe) 25 gm IVPUSH Q15M PRN; Protocol PRN Reason: per Hypoglycemia Standing Ord. Doxazosin Mesylate (Doxazosin Mesylate 2 Mg Tablet) 2 mg PO BEDTIME [facility] Last Admin: 01/16/22 21:17 Dose: 2 mg Documented by: IRAIS Fenofibrate (Fenofibrate 160 Mg Tablet) 160 mg PO DAILY [facility] Last Admin: 01/17/22 10:01 Dose: 160 mg Documented by: JACKIE Ferrous Sulfate (Ferrous Sulfate 324 Mg Tablet.Dr) 324 mg PO DAILY [facility] Last Admin: 01/17/22 10:02 Dose: 324 mg Documented by: JACKIE Glucose (Glucose Gel 15 Gm Gel..Gram.) 15 gm PO Q15M PRN; Protocol PRN Reason: per Hypoglycemia Standing Ord. Insulin Human Lispro (Insulin Lispro 100 Unit/Ml 3 Ml Vial) 0 unit SUBCUT QIDACHS [facility]; Protocol Last Admin: 01/17/22 08:05 Dose: Not Given Documented by: JACKIE Non-Admin Reason: No Insulin Coverage Levothyroxine Sodium (Levothyroxine Sodium 50 Mcg Tablet) 50 mcg PO DAILY@0600 [facility] Last Admin: 01/17/22 05:24 Dose: 50 mcg Documented by: ANGELLA [place] Carbonate ([place] Carbonate Er 450 Mg Tablet.Er) 450 mg PO BEDTIME [facility] Last Admin: 01/16/22 21:17 Dose: 450 mg Documented by: IRAIS Multivitamins/Vitamin C (Multivitamin Tablet) 1 tab PO DAILY [facility] Last Admin: 01/17/22 10:01 Dose: 1 tab Documented by: JACKIE Ondansetron HCl (Ondansetron Hcl 4 Mg/2 Ml Vial) 4 mg IVPUSH Q8H PRN PRN Reason: Nausea and Vomiting Pharmacy Consult (Consult Rx Perform Med Rec) 1 each MISCELLANE ONCE PRN PRN Reason: Consult order Polyethylene Glycol/Electrolytes (Peg 3350/Na Sulf,Bicarb,Cl/Kcl 4,000 Ml Soln.Recon) 4,000 ml PO ONCE ONE Stop: 01/17/22 15:16 Risperidone (Risperidone 0.25 Mg Tablet) 0.125 mg PO DAILY [facility] Last Admin: 01/17/22 10:01 Dose: 0.125 mg Documented by: JACKIE Sodium Chloride (0.9 % Sodium Chloride Flush 3 Ml Syringe) 3 ml IVFLUSH QSHIFT [facility] Last Admin: 01/17/22 10:03 Dose: 3 ml Documented by: JACKIE Labs CBC & Chem 7: 01/17/22 06:36 01/17/22 06:36 Labs: Laboratory Results - last 24 hr 01/16/22 01/16/22 01/17/22 14:25 22:10 06:36 MCV 91.8 MCH 27.2 MCHC 29.6 L RDW 14.5 Plt Count 370 MPV 8.9 L Absolute Nucleated RBC 0.000 Nucleated RBC % (auto) 0.0 Anion Gap Estim Creat Clear Calc Estimated GFR POC Glucose 115 106 Random Glucose Calcium 01/17/22 01/17/22 06:36 07:37 MCV MCH MCHC RDW Plt Count MPV Absolute Nucleated RBC Nucleated RBC % (auto) Anion Gap 10 L Estim Creat Clear Calc 46.4 Estimated GFR 53 POC Glucose 113 Random Glucose 119 H Calcium 9.4 Assessment and Plan (1) Acute GI bleeding: Status: Acute (2) Heme positive stool: Status: Acute Plan hospital d#3 81yo M with dementia + bipolar disease, AF s/p PPM and anticoagulated on apixaban, HTN, HLD, CKD3, hypothyroidism, and GERD who is a long-term resident of [facility] and was sent in for FOBT+ anemia # anemia due to GI bleed - suspected lower GI bleed. GI consulted, Hermilo prep today hen NPO for C- scope tomorrow; hold apixaban # AF - hold AC due to GI bleeding # HTN - amlodipine, atenolol # HLD - statin # DM2 - correction-dose lispro # hypothyroidism - LT4 # bipolar disorder - aripiprazole, risperidone, lithium, carbamazepine # VTE ppx - SCDs, hold apixaban In my clinical judgment, the patient requires continued hospitalization for the following reasons: GI bleeding, inpt C-scope eval Quality Stroke Does the patient have a stroke diagnosis?: No VTE Prior VTE?: No VTE Risk Level:: Medical - moderate - high VTE Device Contraindication: N/A - Device Ordered VTE Drug Contraindication: Treatment Not Indicated
[2022-01-17 12:00] VITALS: BP 153/74; PULSE 77; RESP 18; TEMP 36.7; O2SAT 96
[2022-01-17 12:13] LABS: Glucose, Whole Blood 176 mg/dL (60-115)
[2022-01-17] MEDS: Insulin Lispro 100 UNIT/ML 3 ML VIAL SUBCUT (12:20)
[2022-01-17 15:24] VITALS: BP 157/68; PULSE 71; RESP 18; TEMP 36.7; O2SAT 95
[2022-01-17] MEDS: PEG 3350/Na Sulf,Bicarb,Cl/KCL 4,000 ML SOLN.RECON 4000 ML PO (17:58)
[2022-01-17 19:16] VITALS: BP 140/67; PULSE 65; RESP 18; TEMP 36.6; O2SAT 97
[2022-01-17] MEDS: Lithium Carbonate ER 450 MG TABLET.ER PO (20:57)
[2022-01-17] MEDS: Atorvastatin Calcium 10 MG TABLET PO (20:57)
[2022-01-17] MEDS: Doxazosin Mesylate 2 MG TABLET PO (20:57)
[2022-01-17 21:52] LABS: Glucose, Whole Blood 102 mg/dL (60-115)
[2022-01-18] VITALS (7 sets, daily range): BP systolic 102–167; BP diastolic 51–75; PULSE 57–66; RESP 17–18; TEMP 36.3–36.9; O2SAT 95–97
[2022-01-18] MEDS: Levothyroxine Sodium 50 MCG TABLET PO (05:31)
--- NOTE | 2022-01-18 06:36 | PC.NURSE ---
This RN instructed pt to consume the bowel prep (golytely) prior to surgery in the AM. Patient was too confused and lethargic to understand directions despite multiple attempts to educate pt. Pt did not drink bowel prep
[2022-01-18 07:30] LABS: Glucose, Whole Blood 99 mg/dL (60-115)
[2022-01-18] MEDS: carBAMazepine ER 200 MG TAB.ER.12H 600 MG PO ×2 (08:07→20:10)
[2022-01-18] MEDS: Multivitamin TABLET 1 TAB PO (08:07)
[2022-01-18] MEDS: risperiDONE 0.25 MG TABLET 0.125 MG PO (08:07)
[2022-01-18] MEDS: Fenofibrate 160 MG TABLET PO (08:08)
[2022-01-18] MEDS: Ascorbic Acid 500 MG TABLET PO (08:08)
[2022-01-18] MEDS: Ferrous Sulfate 324 MG TABLET.DR PO (08:08)
[2022-01-18] MEDS: ARIPiprazole 2 MG TABLET 1 MG PO (08:08)
[2022-01-18] MEDS: 0.9 % Sodium Chloride Flush 3 ML SYRINGE IVFLUSH ×3 (08:09→20:26)
[2022-01-18] MEDS: Artificial Tears 15 ML DROPS 1 DROP EYE-BOTH ×2 (08:09→20:16)
[2022-01-18 09:04] LABS: Folate 8.3 ng/mL (> or = 4.0); Vitamin B12 211 pg/mL (200-900)
[2022-01-18] MEDS: atenoloL 50 MG TABLET PO ×2 (09:07→20:10)
[2022-01-18] MEDS: amLODIPine Besylate 2.5 MG TABLET PO (09:07)
[2022-01-18 11:42] LABS: Glucose, Whole Blood 94 mg/dL (60-115)
--- NOTE | 2022-01-18 12:57 | MHC.CM.PN ---
EMR REVIEWED, PT STILL WORKING ON DRINKING BOWEL PREP, PLAN FOR COLONOSCOPY AND ONCE READ PT WILL BE ABLE TO RETURN TO [facility] WILL CONT TO FOLLOW D/C NEEDS.
--- NOTE | 2022-01-18 13:44 | HO.PM.IMPN ---
Subjective Subjective Date of Service: 01/18/22 Interval History: Refusing C-scope Review of Systems Review of Systems: Yes Unobtainable due to mental status Physical Exam Vital Signs: Vital Signs: Last Vital Signs Temp 98.4 F 01/18/22 11:29 Pulse 63 01/18/22 11:29 Resp 18 01/18/22 11:29 BP 143/63 H 01/18/22 11:29 Pulse Ox 95 01/18/22 11:29 BMI result Body Mass Index 30.4 Gen: in no acute distress HEENT: sclera anicteric, moist mucus membranes Neck: supple Lungs: clear to auscultation bilaterally Heart: regular rate and rhythm, no murmurs Abd: soft, non-tender, non-distended Ext: no edema Skin: warm/well-perfused Neuro: alert, disoriented, minimally verbal Psych: impaired insight Objective Data Active Medications Acetaminophen (Acetaminophen 325 Mg Tablet) 650 mg PO Q6H PRN PRN Reason: Pain, Mild (Pain Scale 1-3) Amlodipine Besylate (Amlodipine Besylate 2.5 Mg Tablet) 2.5 mg PO DAILY [facility]; Protocol Last Admin: 01/18/22 09:07 Dose: 2.5 mg Documented by: NAVID Aripiprazole (Aripiprazole 2 Mg Tablet) 1 mg PO DAILY [facility] Last Admin: 01/18/22 08:08 Dose: 1 mg Documented by: NAVID Artificial Tears (Artificial Tears 15 Ml Drops) 1 drop EYE-BOTH BID [facility] Last Admin: 01/18/22 08:09 Dose: 1 drop Documented by: NAVID Ascorbic Acid (Ascorbic Acid 500 Mg Tablet) 500 mg PO DAILY [facility] Last Admin: 01/18/22 08:08 Dose: 500 mg Documented by: NAVID Atenolol (Atenolol 50 Mg Tablet) 50 mg PO BID [facility]; Protocol Last Admin: 01/18/22 09:07 Dose: 50 mg Documented by: NAVID Atorvastatin Calcium (Atorvastatin Calcium 10 Mg Tablet) 10 mg PO BEDTIME [facility] Last Admin: 01/17/22 20:57 Dose: 10 mg Documented by: ASTRID Carbamazepine (Carbamazepine Er 200 Mg Tab.Er.12h) 600 mg PO BID [facility] Last Admin: 01/18/22 08:07 Dose: 600 mg Documented by: NAVID Dextrose (Dextrose 50 % 25 Gm/50 Ml Syringe) 25 gm IVPUSH Q15M PRN; Protocol PRN Reason: per Hypoglycemia Standing Ord. Doxazosin Mesylate (Doxazosin Mesylate 2 Mg Tablet) 2 mg PO BEDTIME [facility] Last Admin: 01/17/22 20:57 Dose: 2 mg Documented by: ASTRID Fenofibrate (Fenofibrate 160 Mg Tablet) 160 mg PO DAILY [facility] Last Admin: 01/18/22 08:08 Dose: 160 mg Documented by: NAVID Ferrous Sulfate (Ferrous Sulfate 324 Mg Tablet.Dr) 324 mg PO DAILY [facility] Last Admin: 01/18/22 08:08 Dose: 324 mg Documented by: NAVID Glucose (Glucose Gel 15 Gm Gel..Gram.) 15 gm PO Q15M PRN; Protocol PRN Reason: per Hypoglycemia Standing Ord. Insulin Human Lispro (Insulin Lispro 100 Unit/Ml 3 Ml Vial) 0 unit SUBCUT QIDACHS [facility]; Protocol Last Admin: 01/18/22 12:39 Dose: Not Given Documented by: NAVID Non-Admin Reason: No Insulin Coverage Levothyroxine Sodium (Levothyroxine Sodium 50 Mcg Tablet) 50 mcg PO DAILY@0600 [facility] Last Admin: 01/18/22 05:31 Dose: 50 mcg Documented by: ASTRID [place] Carbonate ([place] Carbonate Er 450 Mg Tablet.Er) 450 mg PO BEDTIME [facility] Last Admin: 01/17/22 20:57 Dose: 450 mg Documented by: ASTRID Multivitamins/Vitamin C (Multivitamin Tablet) 1 tab PO DAILY [facility] Last Admin: 01/18/22 08:07 Dose: 1 tab Documented by: NAVID Ondansetron HCl (Ondansetron Hcl 4 Mg/2 Ml Vial) 4 mg IVPUSH Q8H PRN PRN Reason: Nausea and Vomiting Pharmacy Consult (Consult Rx Perform Med Rec) 1 each MISCELLANE ONCE PRN PRN Reason: Consult order Risperidone (Risperidone 0.25 Mg Tablet) 0.125 mg PO DAILY [facility] Last Admin: 01/18/22 08:07 Dose: 0.125 mg Documented by: NAVID Sodium Chloride (0.9 % Sodium Chloride Flush 3 Ml Syringe) 3 ml IVFLUSH QSHIFT [facility] Last Admin: 01/18/22 08:09 Dose: 3 ml Documented by: NAVID Labs CBC & Chem 7: 01/17/22 06:36 01/17/22 06:36 Labs: Laboratory Results - last 24 hr 01/16/22 01/17/22 01/18/22 06:43 20:53 07:24 POC Glucose 102 99 Vitamin B12 211 Folate 8.3 01/18/22 11:28 POC Glucose 94 Vitamin B12 Folate Assessment and Plan (1) Acute GI bleeding: Status: Acute (2) Heme positive stool: Status: Acute Plan hospital d#4 81yo M with dementia + bipolar disease, AF s/p PPM and anticoagulated on apixaban, HTN, HLD, CKD3, hypothyroidism, and GERD who is a long-term resident of [facility] and was sent in for FOBT+ anemia # anemia due to GI bleed - suspected lower GI bleed; GI consulted; planned C-scope today but pt did not do prep. will feed and recheck Hb tomorrow and try to convince again; hold apixaban # AF - hold AC due to GI bleeding # HTN - amlodipine, atenolol # HLD - statin # DM2 - correction-dose lispro # hypothyroidism - LT4 # bipolar disorder - aripiprazole, risperidone, lithium, carbamazepine # VTE ppx - SCDs, hold apixaban In my clinical judgment, the patient requires continued hospitalization for the following reasons: GI bleeding, inpt C-scope eval Quality Stroke Does the patient have a stroke diagnosis?: No VTE Prior VTE?: No VTE Risk Level:: Medical - moderate - high VTE Device Contraindication: N/A - Device Ordered VTE Drug Contraindication: Treatment Not Indicated
[2022-01-18 16:18] LABS: Glucose, Whole Blood 120 mg/dL (60-115)
--- NOTE | 2022-01-18 16:18 | PC.NURSE ---
Patient took very small amount of bowel prep overnight. Dr. Calvillo notified this AM. Order for dulcolax and mag citrate given. Patient refused with multiple attempts. Dr. Calvillo also attempted but patient refusing. Diet resumed and will continue to monitor.
[2022-01-18] MEDS: Atorvastatin Calcium 10 MG TABLET PO (20:10)
[2022-01-18] MEDS: Doxazosin Mesylate 2 MG TABLET PO (20:10)
[2022-01-18] MEDS: Lithium Carbonate ER 450 MG TABLET.ER PO (20:10)
[2022-01-18 20:27] LABS: Glucose, Whole Blood 132 mg/dL (60-115)
[2022-01-19 03:56] VITALS: BP 149/65; PULSE 98; RESP 17; TEMP 36.4; O2SAT 97
[2022-01-19 05:03] LABS: Hematocrit 31.3 % (42.0-52.0); Hemoglobin 9.6 g/dl (14.0-18.0)
[2022-01-19] MEDS: Levothyroxine Sodium 50 MCG TABLET PO (06:15)
--- NOTE | 2022-01-19 06:58 | HO.POSTANES ---
Post Anesthesia Evaluation Post Anesthesia Evaluation Vital Signs: Vital Signs Temp Pulse Resp BP Pulse Ox 01/19/22 03:56 97.5 F 98 17 149/65 H 97 01/18/22 23:49 97.4 F 57 17 159/75 H 97 01/18/22 20:00 97.4 F 64 18 149/63 H 97 Anesthesia: Monitored Mental Status: Awake Pain Control: Satisfactory Nausea/Vomiting: None Hydration: Adequate Anesthesia-Related Issues: No Anes. Related Issues
[2022-01-19 07:33] LABS: Glucose, Whole Blood 97 mg/dL (60-115)
[2022-01-19 08:00] VITALS: BP 160/68; PULSE 66; RESP 16; TEMP 37.4; O2SAT 96
[2022-01-19] MEDS: carBAMazepine ER 200 MG TAB.ER.12H 600 MG PO (09:01)
[2022-01-19] MEDS: Ascorbic Acid 500 MG TABLET PO (09:02)
[2022-01-19] MEDS: ARIPiprazole 2 MG TABLET 1 MG PO (09:02)
[2022-01-19] MEDS: Ferrous Sulfate 324 MG TABLET.DR PO (09:02)
[2022-01-19] MEDS: Fenofibrate 160 MG TABLET PO (09:03)
[2022-01-19] MEDS: risperiDONE 0.25 MG TABLET 0.125 MG PO (09:03)
[2022-01-19] MEDS: atenoloL 50 MG TABLET PO (09:03)
[2022-01-19] MEDS: Multivitamin TABLET 1 TAB PO (09:04)
[2022-01-19] MEDS: 0.9 % Sodium Chloride Flush 3 ML SYRINGE IVFLUSH (09:04)
[2022-01-19] MEDS: amLODIPine Besylate 2.5 MG TABLET PO (09:04)
[2022-01-19] MEDS: Artificial Tears 15 ML DROPS 1 DROP EYE-BOTH (09:06)
[2022-01-19 12:00] VITALS: BP 127/74; PULSE 69; RESP 18; TEMP 36.8; O2SAT 98
--- NOTE | 2022-01-19 12:05 | P.DS_ITS ---
DS: Providers Provider Date of Service: 01/19/22 Date of admission: 01/15/22 16:26 Date of discharge: 01/19/22 Primary care physician: Sterling Be DO Consults: 01/15/22 15:54 Consult to Gastroenterology Routine Consulting Provider: [facility] Reason for consultation: gibleed DS: Diagnosis Discharge Diagnosis (1) Anemia: Status: Acute (2) Heme positive stool: Status: Acute DS: Summary Hospital Course Hospital Course: 81yo M with dementia + bipolar disease, AF s/p PPM and anticoagulated on apixaban, HTN, HLD, CKD3, hypothyroidism, and GERD who is a long-term resident of [facility].? He was sent in today due to anemia.? Hb on 12/31/21 was 7.1.? FOBT was positive on 01/04/22.? He was transfused 1u pRBCs 01/05/22 and Hb was 8.5 on 01/08/22.? Apixaban was stopped on 01/11/22.? Repeat Hb on 01/15/22 was 7.6, so the patient was sent in for work up. Hospital course Patient seen in consultation by GI who recommended colonoscopy; patient was resistant to prep and essentially combative to all care. Discussed with GI likely a hemorrhoidal bleed. Will resume Eliquis to return to [facility] were I will see him routinely Time Spent with Patient Time attestation: Total time spent providing and/or coordinating discharge services: Discharge coordination time: Greater than 30 minutes Quality: Safe Use of Opioids Does Pt have an Active Cancer Diagnosis on the Problem List?: No Quality: Stroke Does the patient have a stroke diagnosis?: No Physical Exam Vital Signs: Vital Signs: Last Vital Signs Temp 99.3 F 01/19/22 08:00 Pulse 66 01/19/22 08:00 Resp 16 01/19/22 08:00 BP 160/68 H 01/19/22 08:00 Pulse Ox 96 01/19/22 08:00 BMI result Body Mass Index 30.4 Const: Other: Awake alert oriented x1 Resp: Other: Clear to auscultation bilaterally no rales rhonchi wheezes Cardio: Other: No S4; positive S1-S2; no S3 murmurs rubs or gallops GI: Other: Soft nontender nondistended normoactive bowel sounds Extrem: Other: No edema bilaterally DS: Data Data Completed and Pending Completed studies during hospitalization [Text1]: Procedures Inspection of Upper Intestinal Tract, Via Natural or Artificial Opening Endoscopic (12/30/20) Transfusion of Nonautologous Red Blood Cells into Peripheral Vein, Percutaneous Approach (12/30/20) Labs on day of discharge: Laboratory Results - last 24 hr 01/18/22 01/18/22 01/19/22 15:23 19:23 04:50 Hgb 9.6 L Hct 31.3 L POC Glucose 120 H 132 H 01/19/22 07:18 Hgb Hct POC Glucose 97 Discharge Plan Discharge Patient Disposition: Xfer [facility] Discharge Diagnosis: Hematochezia Referrals: Sterling Be DO [Primary Care Provider] - 1 Week Discharge Medications: Continued multivitamin Tablet 1 tab PO DAILY 0RF polyvinyl alcohol [Artificial Tears (polyvin alc)] 1.4 % Drops 1 drp ophthalmic (eye) BID 0RF Rx Instructions: BOTH EYES Levemir FlexTouch U-100 Insuln 100 unit/mL (3 mL) Insulin Pen 10 unit SUBCUT DAILY@1100 0RF ascorbic acid (vitamin C) 500 mg Tablet 500 mg PO DAILY 0RF dulaglutide 1.5 mg/0.5 mL pen injector 1.5 mg subcut SA 0RF carbamazepine 300 mg capsule, ER multiphase 12 hr 600 mg PO BID 0RF risperidone 0.25 mg tablet 0.125 mg PO DAILY 0RF lithium carbonate 450 mg tablet extended release 450 mg PO BEDTIME 0RF amlodipine 2.5 mg tablet 2.5 mg PO DAILY 0RF aripiprazole 2 mg tablet 1 mg PO DAILY 0RF levothyroxine 50 mcg tablet 50 mcg PO DAILY@0600 0RF simvastatin 10 mg tablet 10 mg PO BEDTIME 0RF fenofibrate nanocrystallized 145 mg tablet 145 mg PO DAILY 0RF terazosin 2 mg capsule 2 mg PO BEDTIME 0RF metformin 1,000 mg tablet 1,000 mg PO BID 0RF atenolol 50 mg tablet 50 mg PO BID 0RF ferrous sulfate 325 mg (65 mg iron) tablet 325 mg PO DAILY 0RF Discharge Orders: Discharge Order (Routine); Ordered 01/19/22 Ordered By: Sterling Be Diet: advance to usual diet Activity on Discharge: As tolerated Stand Alone Forms: Patient Portal Discharge page Care Plan Goals: Resume all meds and treatments as per care 1 Health Concerns: Maintain highest level of function Plan of Treatment: Will re-evaluate at [facility]. Assessment: See discharge summary
[2022-01-19 13:39] LABS: COVID-19 Test Negative (Negative)
--- NOTE | 2022-01-19 14:24 | MHC.CM.PN ---
PATIENT RETURNING TO [facility] TIME REQUESTED FOR 1400 RN AND UNIT AWARE GUARDIAN WADE Doyle [phone]) AWARE IMM 01/18 IN CHART
== END 2022-01-19 14:33 | DRG 394 ==
LOC: HO.ED 15:50 → HO.EDOVER 16:34 → HO.S3 01-16 20:52
PROVIDERS: Internal Medicine Gastroenterology; Physician Assistant; Admitting Provider Family Medicine; Emergency Provider Emergency Medicine; PCP Hospitalist; Visit Provider Hospitalist
DX: K64.8 Other hemorrhoids (principal); D62 Acute posthemorrhagic anemia; E03.9 Hypothyroidism, unspecified; I48.0 Paroxysmal atrial fibrillation; F03.90 Unspecified dementia, unspecified severity, without behavioral disturbance, psychotic disturbance, mood disturbance, and anxiety; E78.5 Hyperlipidemia, unspecified; I12.9 Hypertensive chronic kidney disease with stage 1 through stage 4 chronic kidney disease, or unspecified chronic kidney disease; N18.30 Chronic kidney disease, stage 3 unspecified; E11.22 Type 2 diabetes mellitus with diabetic chronic kidney disease; D63.1 Anemia in chronic kidney disease; F31.9 Bipolar disorder, unspecified; Z20.822 Contact with and (suspected) exposure to COVID-19; Z79.84 Long term (current) use of oral hypoglycemic drugs; Z79.01 Long term (current) use of anticoagulants; Z79.890 Hormone replacement therapy; Z79.899 Other long term (current) drug therapy
CPT/HCPCS: 36415; 80048; 80053; 82272; 82607; 82746; 82947; 85014; 85018; 85025; 85027; 85610; 85730; 86850; 86900; 86901; 87635; 99285

== ENCOUNTER → 2022-04-12 12:20 | Outpatient (BNVA) | payer MEDICARE, MEDICAID, SELFPAY | PROVIDERS: PCP Hospitalist; Referring Provider Hospitalist; Visit Provider Internal Medicine | DX: I48.0 Paroxysmal atrial fibrillation (principal); I10 Essential (primary) hypertension; K92.2 Gastrointestinal hemorrhage, unspecified; D64.9 Anemia, unspecified | CPT/HCPCS: 93005; 93280; 99212 ==

== ENCOUNTER → 2022-10-18 12:52 | Outpatient (BNVA) | payer MEDICARE, MEDICAID, SELFPAY | PROVIDERS: PCP Hospitalist; Referring Provider Hospitalist; Visit Provider Internal Medicine | DX: Z45.018 Encounter for adjustment and management of other part of cardiac pacemaker (principal); I48.0 Paroxysmal atrial fibrillation; I10 Essential (primary) hypertension; K92.2 Gastrointestinal hemorrhage, unspecified | CPT/HCPCS: 93280; 99212 ==

== ENCOUNTER 2023-03-27 08:09 | Emergency (ER) | payer OTHER, MEDICARE, MEDICAID, SELFPAY ==
--- NOTE | ~2023-03-27 | CT_ITS ---
EXAMINATION: CT HIP WITHOUT CONTRAST, LEFT CLINICAL INFORMATION: Pain. Fall. COMPARISON: None available. TECHNIQUE: Axial images through the left hip without contrast. Sagittal and coronal reconstructions on the technologist workstation were performed. This CT examination was performed using dose optimization techniques as appropriate, variously including the following: *Automated exposure control *Adjustment of mA and/or kV according to patient size (this includes techniques or standardized protocols for targeted exams where dose is matched to indication/reason for exam; i.e. extremities or head) *Use of iterative reconstruction technique DLP: 274 mGy-cm FINDINGS: Bone alignment is normal. No fracture or dislocation. Mild arthritis at the left hip joint with joint space narrowing and small osteophytes. Thickened trabeculated bladder wall. Enlarged prostate gland that protrudes into the base of the bladder. Atherosclerotic disease. Small left inguinal hernia containing fat. CT/CT hip LT wo IV con IMPRESSION: Mild left hip arthritis. No fracture seen.
--- NOTE | ~2023-03-27 | XR_ITS ---
EXAMINATION: XR CHEST CLINICAL INFORMATION: Chest pain COMPARISON: Previous chest x-ray and chest CT August 2018 TECHNIQUE: Frontal view of the chest was obtained. FINDINGS: The cardiac and mediastinal contours are stable. There is a left subclavian dual chamber pacemaker that appears unchanged. Lung volumes are low. The lungs are clear. No pleural effusion or pneumothorax. No acute bone abnormality. XR/XR chest 1V IMPRESSION: No evidence for acute disease in the chest.
--- NOTE | ~2023-03-27 | CT_ITS ---
EXAMINATION: CT HEAD WITHOUT CONTRAST CLINICAL INFORMATION: Fall. Pain. COMPARISON: Previous head CT January 2017 TECHNIQUE: Contiguous axial imaging was performed from the skull base to vertex without intravenous administration of contrast. This CT examination was performed using dose optimization techniques as appropriate, variously including the following: *Automated exposure control *Adjustment of mA and/or kV according to patient size (this includes techniques or standardized protocols for targeted exams where dose is matched to indication/reason for exam; i.e. extremities or head) *Use of iterative reconstruction technique DLP: 764 mGy-cm FINDINGS: There is no evidence of an extra-axial collection. There is no evidence of intra or extra-axial hemorrhage. The ventricles and extra-axial CSF spaces are prominent suggestive of generalized atrophy. There is nonspecific periventricular white matter disease. 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 No mass, mass effect or acute infarct is seen. No skull fracture. Inflammatory changes in the bilateral maxillary sinuses. Visualized paranasal sinuses, mastoid air cells and middle ears are otherwise clear. CT/CT head/brain wo IV con IMPRESSION: No acute intracranial pathology.
--- NOTE | ~2023-03-27 | CT_ITS ---
EXAMINATION: CT CERVICAL SPINE WITHOUT CONTRAST CLINICAL INFORMATION: Fall. Pain. COMPARISON: None TECHNIQUE: Axial images through the cervical spine without contrast. Sagittal and coronal reconstructions on the technologist workstation were performed. This CT examination was performed using dose optimization techniques as appropriate, variously including the following: *Automated exposure control *Adjustment of mA and/or kV according to patient size (this includes techniques or standardized protocols for targeted exams where dose is matched to indication/reason for exam; i.e. extremities or head) *Use of iterative reconstruction technique DLP: 499 mGy-cm FINDINGS: Mild 2 mm anterior subluxation of C3 with respect to C4 and 4 mm anterior subluxation of C4 with respect to C5. Bone alignment is otherwise normal. No fracture or dislocation. Degenerative spondylosis from C3-C4 to C6-C7. Severe degenerative disc disease at C5-C6 and C6-C7. Bilateral multilevel facet arthritis. Degenerative changes at the C1 dens articulation. Visualized lung apices are clear. The visualized proximal thoracic esophagus appears distended and fluid-filled. Partially visualized left subclavian pacemaker leads. CT/CT cervical spine wo IV con IMPRESSION: No fracture or dislocation. Multilevel degenerative changes. Slightly dilated fluid-filled proximal thoracic esophagus. Fleischner guidelines were followed.
[2023-03-27 08:17] VITALS: BP 156/80; BP 156/81; PULSE 101; PULSE 68; RESP 18; TEMP 36.6; O2SAT 95; O2SAT 96; BMI 26.9
--- NOTE | 2023-03-27 09:05 | ECG_ITS ---
Test Reason : FALL Blood Pressure : / mmHG Vent. Rate : 066 BPM Atrial Rate : 066 BPM P-R Int : 234 ms QRS Dur : 160 ms QT Int : 452 ms P-R-T Axes : -13 -74 035 degrees QTc Int : 473 ms Atrial-paced rhythm with prolonged AV conduction Right bundle branch block Left anterior fascicular block Bifascicular block Septal infarct , age undetermined Abnormal ECG When compared to the previous EKG of No significant changes seen Referred By: Matilde Sheppard Electronically Signed By:MACIEJ HERZOG MD
--- NOTE | 2023-03-27 09:35 | ED_ITS ---
HPI - Fall General Chief Complaint: Fall Stated Complaint: From [facility] [place] above R eye per EMS Time Seen by Provider: 03/27/23 08:23 History of Present Illness HPI Narrative: Patient from [facility] presented today status post fall. History of paroxysmal AFib currently on Eliquis. Suffered a head injury. Sent in for further evaluation. It was a witnessed fall seems mechanical. Patient had no complaints prior. Related Data Home Medications Medication Instructions Recorded Confirmed amlodipine 2.5 mg tablet 2.5 mg PO DAILY 10/13/20 04/12/22 aripiprazole 2 mg tablet 1 mg PO DAILY 10/13/20 10/18/22 atenolol 50 mg tablet 50 mg PO BID 10/13/20 10/18/22 carbamazepine 300 mg 600 mg PO BID 10/13/20 10/18/22 capsule,extended release [id number] dulaglutide 1.5 mg/0.5 mL 1.5 mg subcut SA 10/13/20 10/18/22 subcutaneous pen injector fenofibrate nanocrystallized 145 145 mg PO DAILY 10/13/20 10/18/22 mg tablet levothyroxine 50 mcg tablet 50 mcg PO DAILY@0600 10/13/20 10/18/22 lithium carbonate 450 mg 450 mg PO BEDTIME 10/13/20 10/18/22 tablet,extended release metformin 1,000 mg tablet 1,000 mg PO BID 10/13/20 10/18/22 risperidone 0.25 mg tablet 0.125 mg PO DAILY 10/13/20 10/18/22 simvastatin 10 mg tablet 10 mg PO BEDTIME 10/13/20 10/18/22 terazosin 2 mg capsule 2 mg PO BEDTIME 10/13/20 10/18/22 multivitamin 1 tab PO DAILY 12/31/20 10/18/22 polyvinyl alcohol 1.4 % eye drops 1 drp ophthalmic (eye) BID 12/31/20 10/18/22 (Artificial Tears (polyvinyl alcohol)) ferrous sulfate 325 mg (65 mg 325 mg PO DAILY 10/19/21 10/18/22 iron) tablet ascorbic acid (vitamin C) 500 mg 500 mg PO DAILY 01/15/22 10/18/22 tablet insulin detemir U-100 100 unit/mL 10 unit subcut DAILY@1100 01/15/22 10/18/22 (3 mL) subcutaneous pen (Levemir FlexTouch U-100 Insulin) apixaban 2.5 mg tablet (Eliquis) 2.5 mg PO BID 04/12/22 10/18/22 acetaminophen 325 mg capsule 650 mg PO Q4H PRN 10/18/22 10/18/22 bisacodyl 10 mg rectal suppository 10 mg WV DAILY PRN 10/18/22 10/18/22 (Dulcolax (bisacodyl)) loperamide 2 mg capsule 2 mg PO Q6H PRN 10/18/22 10/18/22 tramadol 50 mg tablet 50 mg PO BID PRN 10/18/22 10/18/22 Allergies Allergy/AdvReac Type Severity Reaction Status Date / Time No Known Allergies Allergy Verified 10/18/22 13:12 [No Known Allergies*] Review of Systems Review of Systems: Unable to obtain full review systems secondary to patient's condition PMFSH Past Medical History Attestation statement: The following information was validated with the patient. Medical History Acute GI bleeding Diabetes Essential hypertension Hypothyroidism PAF (paroxysmal atrial fibrillation) Psychiatric diagnosis Wheezy Surgical History History of permanent cardiac pacemaker placement (~03/2015) Family History Family History Father No problems noted. Mother No problems noted. Social History Social History Household Members: Other Housing: Long Term Do you presently have visiting nurse or other home services: No Unable to assess alcohol history related to: Refusing to respond Alcohol intake: never Patient Tobacco Use Status: Never used Tobacco Smoked in Last 30 Days: Yes Use of substances other than those prescribed or required for medical reasons: No Advance Directives: Yes Advance Directives Information Provided: Yes Advance Directives on File: No service: Yes Current occupational status: disabled Physical Exam Vital Signs: Vital Signs: Last Vital Signs Temp 98.0 F 03/27/23 10:12 Pulse 72 03/27/23 10:12 Resp 14 03/27/23 10:12 BP 157/70 H 03/27/23 10:12 Pulse Ox 100 03/27/23 10:12 O2 Del Method Room Air 03/27/23 10:12 BMI result Body Mass Index 26.9 Appearance: Alert. Oriented to self. Positive abrasion to the right forehead right eyebrow area. There is no midface tenderness. There is no malocclusion noted. Eyes: Pupils equal, round and reactive to light. ENT: Pharynx normal. Neck: Normal inspection. Neck supple. No lymph nodes noted. No crepitus CVS: Normal heart rate and rhythm. Pulses normal. Normal S1 and S2 Respiratory: No respiratory distress. Breath sounds normal. No Wheezing. No rales Abdomen: Soft and nontender. No rigidity. No distention. good BS x4 Skin: Skin warm and dry. Normal skin color. Normal skin turgor. Extremities: No lower extremity edema. Neurovascular intact to all extremities. No Lacerations. No Rash Neuro: Oriented to self. No motor deficit. No sensory deficit. Moving all extermities. No slurred speech Medical Decision Making Medical Decision Making [facility] Narrative: Because patient is on Eliquis and had a head injury. CT scan of the head was grossly negative for any acute evidence of bleeding. No fracture noted. CT scan of the C-spine showed no acute fracture. Patient has good range of motion at the hip. [facility] complained patient had a possible seen to the left hip earlier. Given patient was already going to CT. A CT scan of the hip was done. It showed no evidence of fracture. My interpretation of the patient's EKG shows an paced rhythm heart rate is approximately 70. Patient in no distress. Hemoglobin is baseline. Chemistry is normal. No evidence acute renal insufficiency. Will discharge patient back to [facility]. Differential Diagnosis Differential Diagnoses: The differential diagnosis associated with the presentation includes Intracranial bleed, fracture, traumatic injury to the C-spine Consult Healthcare Provider Management of the patient was discussed with: Hospitalist Lab Data [facility] Lab Attestation statement: I reviewed the patient's lab results. 03/27/23 10:01 03/27/23 10:01 Labs: Lab Results 03/27/23 03/27/23 Range/Units 10:01 10:01 WBC 5.8 (4.8-10.8) X10*3/uL RBC 3.79 L (4.60-5.80) X10*6/uL Hgb 10.6 L (14.0-18.0) g/dl Hct 35.5 L (42.0-52.0) % MCV 93.7 (80.0-98.0) fL MCH 28.0 (27.0-33.0) pg MCHC 29.9 L (31.0-36.0) g/dl RDW 13.9 (11.0-16.0) % Plt Count 221 D (160-400) X10*3/uL MPV 8.3 L (9.4-12.4) fL Immature Gran % (Auto) 0.2 (0.0-0.4) % Neut % (Auto) 57.0 (45-73) % Lymph % (Auto) 28.9 (20-40) % Garvin % (Auto) 5.5 (2-11) % Eos % (Auto) 7.9 H (0-4) % Baso % (Auto) 0.5 (0-2) % Lymph # (Auto) 1.7 (1.2-4.9) X10*3/uL Garvin # (Auto) 0.3 (0.1-1.2) X10*3/uL Eos # (Auto) 0.5 H (0.0-0.4) X10*3/uL Baso # (Auto) 0.0 (0.0-0.2) X10*3/uL Abs Immat Gran (auto) 0.01 (0.00-0.03) X10*3/uL Absolute Neuts (auto) 3.3 (2.0-8.3) x10*3/uL Absolute Nucleated RBC 0.000 (0.0-0.012) X10*3/uL Nucleated RBC % (auto) 0.0 (0.0-0.2) /100WBC Sodium 143 (135-145) mmol/L Potassium 4.5 (3.3-5.1) mmol/L Chloride 114 H (96-108) mmol/L Carbon Dioxide 23 (22-29) mmol/L Anion Gap 11 L (12-20) BUN 30 H (9-16) mg/dL Creatinine 1.29 (0.5-1.4) mg/dL Estim Creat Clear Calc 44.7 Estimated GFR 53 Random Glucose 108 (60-115) mg/dL Calcium 8.8 D (8.4-10.2) mg/dL Independent Interpretation I performed an independent interpretation of an: CT Scan Interpretation: CT scan of the head was grossly negative for any acute evidence of bleeding. CT scan of the C-spine was grossly negative for any fracture malalignment Radiology Impression Discussion of test interpretation with radiology: I have reviewed the radiologist's reading. External Record Review External record reviewed: Outpatient record [facility] record Chronic Conditions Atrial fibrillation on blood thinners Discharge Plan Discharge Clinical Impression: Head injury, Fall Patient Disposition: er [facility] Instructions: Fall Prevention for Older Adults (ED), Head Injury (ED), Fall Prevention (ED) Prescriptions: No Action multivitamin Tablet 1 tab PO DAILY polyvinyl alcohol [Artificial Tears (polyvin alc)] 1.4 % Drops 1 drp ophthalmic (eye) BID Rx Instructions: BOTH EYES Levemir FlexTouch U100 Insulin 100 unit/mL (3 mL) Insulin Pen 10 unit SUBCUT DAILY@1100 ascorbic acid (vitamin C) 500 mg Tablet 500 mg PO DAILY dulaglutide 1.5 mg/0.5 mL pen injector 1.5 mg subcut SA carbamazepine 300 mg capsule, ER multiphase 12 hr 600 mg PO BID risperidone 0.25 mg tablet 0.125 mg PO DAILY lithium carbonate 450 mg tablet extended release 450 mg PO BEDTIME amlodipine 2.5 mg tablet 2.5 mg PO DAILY aripiprazole 2 mg tablet 1 mg PO DAILY levothyroxine 50 mcg tablet 50 mcg PO DAILY@0600 simvastatin 10 mg tablet 10 mg PO BEDTIME fenofibrate nanocrystallized 145 mg tablet 145 mg PO DAILY terazosin 2 mg capsule 2 mg PO BEDTIME metformin 1,000 mg tablet 1,000 mg PO BID atenolol 50 mg tablet 50 mg PO BID ferrous sulfate 325 mg (65 mg iron) tablet 325 mg PO DAILY Eliquis 2.5 mg tablet 2.5 mg PO BID acetaminophen 325 mg capsule 650 mg PO Q4H PRN bisacodyl [Dulcolax (bisacodyl)] 10 mg suppository 10 mg WV DAILY PRN loperamide 2 mg capsule 2 mg PO Q6H PRN tramadol 50 mg tablet 50 mg PO BID PRN Referrals: Sterling Be DO [Primary Care Provider] - 03/29/23
[2023-03-27 09:50] VITALS: RESP 16
[2023-03-27 10:08] LABS: MANUAL DIFF FLAG NO
[2023-03-27 10:09] LABS: Basophils Percent Auto 0.5 % (0-2); Eosinophils Absolute Auto 0.5 X10*3/uL (0.0-0.4); Eosinophils Percent Auto 7.9 % (0-4); Hematocrit 35.5 % (42.0-52.0); Hemoglobin 10.6 g/dl (14.0-18.0); Imm Gran Abs Auto 0.01 X10*3/uL (0.00-0.03); Imm Gran Pct Auto 0.2 % (0.0-0.4); Lymphocytes Absolute Auto 1.7 X10*3/uL (1.2-4.9); Lymphocytes Percent Auto 28.9 % (20-40); Mean Corpuscular HGB Conc 29.9 g/dl (31.0-36.0); Mean Corpuscular Volume 93.7 fL (80.0-98.0); Mean Platelet Volume 8.3 fL (9.4-12.4); Monocytes Absolute Auto 0.3 X10*3/uL (0.1-1.2); Monocytes Percent Auto 5.5 % (2-11); Neutrophils Absolute Auto 3.3 x10*3/uL (2.0-8.3); Platelet Count 221 X10*3/uL (160-400); Red Blood Count 3.79 X10*6/uL (4.60-5.80); Red Cell Distribution Width 13.9 % (11.0-16.0); White Blood Count 5.8 X10*3/uL (4.8-10.8)
[2023-03-27 10:12] VITALS: BP 157/70; PULSE 72; RESP 14; TEMP 36.7; O2SAT 100
[2023-03-27 10:24] LABS: Anion Gap 11 (12-20); Blood Urea Nitrogen 30 mg/dL (9-16); Calcium 8.8 mg/dL (8.4-10.2); Carbon Dioxide 23 mmol/L (22-29); Chloride 114 mmol/L (96-108); Creatinine Clr Calc Pharmacy 44.7; Estimated Glomerular Filt Rate 53; Glucose Random 108 mg/dL (60-115); Potassium 4.5 mmol/L (3.3-5.1); Sodium 143 mmol/L (135-145)
[2023-03-27 12:35] VITALS: BP 144/80; PULSE 95; RESP 14; TEMP 36.9; O2SAT 100
--- NOTE | 2023-03-27 13:10 | PC.NURSE ---
rn to rn report given to [facility] ([phone]). pt is on his way to [facility] via ambulance.
== END 2023-03-27 13:13 ==
PROVIDERS: Emergency Provider Emergency Medicine Emergency Medical Services; PCP Hospitalist
DX: S09.90XA Unspecified injury of head, initial encounter (principal); S00.81XA Abrasion of other part of head, initial encounter; W18.30XA Fall on same level, unspecified, initial encounter; I48.0 Paroxysmal atrial fibrillation; Z79.01 Long term (current) use of anticoagulants; Y93.9 Activity, unspecified; Y92.129 Unspecified place in nursing home as the place of occurrence of the external cause; Y99.9 Unspecified external cause status
CPT/HCPCS: 36415; 70450; 71045; 72125; 73700; 80048; 85025; 93005; 99284

== ENCOUNTER → 2023-03-27 09:05 | Outpatient (BNV) | payer MEDICARE, MEDICAID, SELFPAY | PROVIDERS: Emergency Provider Emergency Medicine Emergency Medical Services; PCP Hospitalist; Visit Provider Internal Medicine Cardiovascular Disease | DX: I48.0 Paroxysmal atrial fibrillation (principal) | CPT/HCPCS: 93010 ==

== ENCOUNTER 2023-08-26 10:11 | Outpatient (REF) | payer MEDICARE, MEDICAID, SELFPAY ==
--- NOTE | ~2023-08-26 | XR_ITS ---
EXAMINATION: XR KNEE, LEFT CLINICAL INFORMATION: Swelling. COMPARISON: None available. TECHNIQUE: Four views of the left knee. FINDINGS: The bone mineralization is normal. The joint spaces are fairly well maintained for patient age. There is no fracture. There is no significant joint effusion. There is prepatellar soft tissue swelling. XR/XR knee LT 4V IMPRESSION: 1. Prepatellar soft tissue swelling. 2. No fracture, dislocation or significant joint effusion is seen.
== END 2023-08-26 10:12 | disposition home or self-care (01) ==
LOC: HO.XRAY 10:11
PROVIDERS: PCP Hospitalist; Visit Provider Hospitalist
DX: R60.0 Localized edema (principal); M25.562 Pain in left knee
CPT/HCPCS: 73564

== ENCOUNTER 2024-01-24 12:52 | Outpatient (AMB) | payer MEDICARE, MEDICAID, SELFPAY ==
[2024-01-24 13:04] VITALS: BP 122/50; PULSE 65
--- NOTE | 2024-01-24 13:04 | MHC.OFFVIS ---
Vital Signs 01/24/24 13:04 Height 5 ft 10 in BP 122/50 L Blood Pressure Location Lt brachial Position Sitting Pulse 65 Pulse Source Monitor Intake Visit Reasons: f/up and overdue device ck Winding Operator Required: No Senior Net Engineer: Senior Net Engineer Present Allergies No Known Allergies [No Known Allergies*] Allergy (Verified 10/18/22 13:12) Medication List - Last Reconciled 01/24/24 by Mary Jane Woodard, ROUGH AND TRUEING MACHINE OPERATOR-C acetaminophen 650 mg PO Q4H PRN amlodipine 2.5 mg PO DAILY apixaban (Eliquis) 2.5 mg PO BID aripiprazole 1 mg PO DAILY ascorbic acid (vitamin C) 500 mg PO DAILY atenolol 50 mg PO BID bisacodyl (Dulcolax (bisacodyl)) 10 mg PA DAILY PRN carbamazepine ER 600 mg PO BID dulaglutide 1.5 mg subcut SA fenofibrate nanocrystallized 145 mg PO DAILY ferrous sulfate 325 mg PO DAILY insulin detemir U-100 (Levemir FlexTouch U-100 Insulin) 10 units subcut DAILY@1100 levothyroxine 50 mcg PO DAILY@0600 lithium carbonate ER 450 mg PO BEDTIME loperamide 2 mg PO Q6H PRN metformin 1,000 mg PO BID multivitamin 1 tab PO DAILY polyvinyl alcohol 1.4% (Artificial Tears (polyvinyl alcohol)) 1 drp ophthalmic (eye) BID risperidone 0.125 mg PO DAILY simvastatin 10 mg PO BEDTIME terazosin 2 mg PO BEDTIME tramadol 50 mg PO BID PRN HPI HPI f/up and overdue device ck: Details: Smith is an 83-year-old male past medical history hypertension, diabetes, paroxysmal atrial fibrillation, sick sinus syndrome status post pacemaker who presents for follow-up. He resides at [facility] residential facility. Today he is noted to have confusion. According to his [facility] provider this is not new. Patient states that [place] He says [place] is in [place] and does lots of walking. In fact patient is wheelchair bound. He does not ambulate. He denies having pain at this time. His breathing is comfortable. Unable to get full review of systems as his responses do not seem reliable. No bleeding reported by [facility] personnel. [facility] Medical History (Updated 01/24/24 @ 15:33 by Mary Jane Woodard, LIBIA-C) Psychiatric diagnosis Hypothyroidism Diabetes Wheezy Acute GI bleeding Essential hypertension PAF (paroxysmal atrial fibrillation) Surgical History (Updated 01/24/24 @ 15:33 by HEATH Squires) History of permanent cardiac pacemaker placement (~03/2015) Family History Father No problems noted. Mother No problems noted. Social History Household Members: Other Housing: [facility] Do you presently have visiting nurse or other home services: No Unable to assess alcohol history related to: Refusing to respond Alcohol intake: never Comment: Repo Q2 Patient Tobacco Use Status: Never used Tobacco service: Yes Current occupational status: disabled Review of Systems Const Details: dementia Unobtainable due to mental condition ENT Denies dizziness Card Denies chest pain, Denies leg edema and Denies dyspnea Resp Denies cough and Denies dyspnea Musc Details: uses wheelchair - does not walk Denies abnormal gait Neuro Denies abnormal gait and Denies dizziness Physical Exam Vital Signs: Last Vital Signs Pulse 65 01/24/24 13:04 BP 122/50 L 01/24/24 13:04 Const Other: Demetia - seems oriented X1, to person. Says he is [place] later and that he is in the [employer] and walks a lot ( wheelchair bound) General: cooperative, healthy appearing, comfortable and no acute distress Neck Neck: Yes normal visual inspection and Yes no JVD Resp Effort & Inspection: normal respiratory effort Auscultation: clear to auscultation bilaterally, no rales, no rhonchi and no wheezes Cardio Jugular venous distension: no JVD Rate: regular rate Rhythm: regular rhythm Heart sounds: S1 normal heart sound present, S2 normal heart sound present, no murmurs and no rubs Extrem General: Yes normal to inspection Psych Appearance: grossly normal Speech and movement: Normal speech and movement present Office Procedures Cardiac Device Check Cardiac Device Check Details: Medtronic dual-chamber pacemaker interrogation today, battery 25 months, range 7 to 42 months, AAIR to DDDR mode, low rate 60, mode switch 0.1% of time since 10/18/2022, longest mode switch episode 1 hour 31 minutes occurring on 05/10/2023, most recent episode 01/11/2024 lasting 53 seconds with max V rate 115, a paced 99.7% of time, V paced less than 0.1% of time. 06463-[id number] Cardiac Device Check, pacemaker dual lead Procedure code (CPT) selection complete EKG Details: Today, read by me, normal sinus rhythm, right bundle branch block, left anterior fascicular block, can not exclude prior lateral infarct or prior septal infarct, rate 65, JT index 102 [id number], Complete Assessment & Plan Assessment & Plan (1) PAF (paroxysmal atrial fibrillation): Code(s): I48.0 - Paroxysmal atrial fibrillation Category: Medical Plan: History of paroxysmal atrial fibrillation. Pacemaker interrogation today shows low burden of AF. He is on atenolol for heart rate control. EKG done today showing sinus rhythm with right bundle branch block and left anterior fascicular block, rate 65. He is on low-dose Eliquis for anticoagulation. He has had issues with GI bleeding in the past. No active bleeding reported. Last labs in our system done 03/27/2023 showed hematocrit 35.5, creatinine 1.29. Information written on [facility] consult sheet that patient should have updated CBC, CMP. Last echocardiogram done 01/16/2017, EF 65-70%, no regional wall motion abnormalities and normal valves. No med changes made. (2) Essential hypertension: Code(s): I10 - Essential (primary) hypertension Category: Medical Plan: Normal range at this time. No med changes made. Continue atenolol and amlodipine. (3) History of permanent cardiac pacemaker placement: Onset Date: ~03/2015 Comment: MEDTRONIC Code(s): Z95.0 - Presence of cardiac pacemaker Category: Surgical Plan: Medtronic dual-chamber pacemaker interrogation today. Battery life 25 months, battery range 7 to 42 months. AF burden 0.1% since 10/18/2022. A paces 99.7% of time. He has not using remote monitoring. I wrote on the [facility] consult sheet that if he has a remote monitor it should be set up at the bedside. Will arrange for an office interrogation in 6 months to re-evaluate battery and pacer function. (4) Chronic anticoagulation: Code(s): Z79.01 - alf (current) use of anticoagulants Category: Medical Plan: As above Plan Time spent on chart review, documentation, interview and assessment Coding Level of Care Code Est Pt Level 4 (69664) Diagnoses PAF (paroxysmal atrial fibrillation) I48.0 Essential hypertension I10 History of permanent cardiac pacemaker placement Z95.0 Chronic anticoagulation Z79.01 CPT Codes Cardiac Device Check - Cardiac Device 2: 57785-FT Cardiac Device Check, pacemaker dual lead ([id number]) EKG - CPT: 48122-[id number], Complete ([id number]) Time Spent (min) 30
== END 2024-01-24 14:06 | disposition home or self-care (01) ==
PROVIDERS: PCP Hospitalist; Visit Provider Nurse Practitioner Family
DX: I48.0 Paroxysmal atrial fibrillation (principal); I10 Essential (primary) hypertension; Z95.0 Presence of cardiac pacemaker; Z79.01 Long term (current) use of anticoagulants
CPT/HCPCS: 93010; 93280; 99214

== ENCOUNTER → 2024-01-24 12:52 | Outpatient (BNVA) | payer MEDICARE, MEDICAID, SELFPAY | PROVIDERS: PCP Hospitalist; Visit Provider Nurse Practitioner Family | DX: Z45.018 Encounter for adjustment and management of other part of cardiac pacemaker (principal); I48.0 Paroxysmal atrial fibrillation; I10 Essential (primary) hypertension; Z79.01 Long term (current) use of anticoagulants; I45.2 Bifascicular block; R94.31 Abnormal electrocardiogram [ECG] [EKG] | CPT/HCPCS: 93005; 93280; 99212 ==